=== PATIENT | male | born 1975 | race Caucasian/White ===

== ENCOUNTER 2016-04-16 13:41 | Inpatient (IN) ==
--- NOTE | 2016-04-16 15:03 | Diag Imaging Result Document ---
PROCEDURE NAME: NECK AP AND/OR LAT SOFT TISSUE - 04/16/2016 SOFT TISSUE NECK, 2 VIEWS: FINDINGS: Compared to 06/15/2015. No precervical soft tissue swelling. No subluxation. No metallic or other foreign body identified. IMPRESSION: No foreign body is seen.
[2016-04-16] MEDS ORDERED: GLUCAGON SUBQ ONE (17:15)
[2016-04-16] MEDS ORDERED: GLUCAGON ONE (17:16)
[2016-04-16] MEDS ORDERED: STERILE WATER INJ. ONE (17:16)
--- NOTE | 2016-04-16 17:30 | PROVIDER DOCUMENTATION ---
HPI-Abdominal Pain/GI Problem - General Chief Complaint: Foreign Body/Throat Stated Complaint: "FOOD STUCK IN THROAT" Time Seen by Provider: 04/16/16 15:52 Allergies/Adverse Reactions: Patient Allergies Allergy/AdvReac Type Severity Reaction Status Date / Time morphine Allergy ANAPHYLAXIS Verified 04/16/16 13:48 propoxyphene napsylate * Allergy SWELLING Verified 04/16/16 13:48 [From Darvocet-N] tramadol HCl * [From Ultram] Allergy SWELLING Verified 04/16/16 13:48 IV pain meds Allergy Unknown Uncoded 04/16/16 13:48 Home Medications: Home Medication List Medication Instructions Recorded Confirmed Last Taken Type Flecainide Acetate 50 mg PO BID 08/02/15 03/01/16 03/01/16 History Gabapentin [Neurontin] 100 mg PO QHS 11/23/15 03/01/16 1 Day Ago History Metoprolol [Lopressor] 50 mg PO QAM 11/23/15 03/01/16 03/01/16 History Eszopiclone [Lunesta] 1 mg PO HS 03/01/16 03/01/16 1 Day Ago History Lorazepam [Ativan] 1 mg PO QHS 03/01/16 03/01/16 02/29/16 History Omeprazole/Sodium Bicarbonate 1 each PO DAILY #30 packet 03/01/16 Unknown Rx [Zegerid 40 mg Packet] Paroxetine [Paxil] 0 mg PO DAILY 03/01/16 03/01/16 03/01/16 History Prednisone 10 mg PO QAM 03/01/16 03/01/16 03/01/16 History Rivaroxaban [Xarelto] 10 mg PO DAILY 03/01/16 03/01/16 03/01/16 History Sucralfate [Carafate] 1 gm PO 4XDAY #120 tablet 03/01/16 Unknown Rx - History of Present Illness-ABD Nature of Presenting Problems: 40 y/o M presented to the ER complaining of a piece of meat stuck in his throat. He tried to induce vomiting and drink liquid to help swallowing the particle but it did not work. He stated that he has a history of hodgkin lymphoma s/p radiotherapy which had caused his esophagus to be narrowed. He has multiple episodes of such a complaint and is following on regular basis with his GI specialist "DR. HERNANDEZ" for prn Endoscopy. Onset/Duration: reports: abrupt Timing: reports: still present Activities at Onset: reports: none Modifying Factors: improves with: nothing Last BM: this morning Dark Stools Present?: reports: none noticed Rectal Bleeding: reports: none Emesis Description: reports: none Bruising or Bleeding Gums?: No Similar Symptoms Previously?: Yes Recently seen or treated by another doctor?: Yes Review of Systems - Adult - REVIEW OF SYSTEMS - ADULT Constitutional: reports: no symptoms reported Eyes: reports: no symptoms reported Ears, Nose, Mouth & Throat: reports: other (unable to pass solid food.) Respiratory: reports: no symptoms reported Gastrointestinal: reports: other Genitourinary: reports: no symptoms reported Musculoskeletal: reports: no symptoms reported Integumentary: reports: no symptoms reported Neurological: reports: no symptoms reported Psychiatric: reports: no symptoms reported Endocrine: reports: no symptoms reported Hematologic/Lymphatic: reports: no symptoms reported Past History - Adult - PAST MEDICAL HISTORY-ADULT Review of Records: reports: Nursing Assessment Review, Medications Reviewed Major Childhood Illnesses: reports: denies history Cardiovascular: reports: denies history, HTN Respiratory: reports: COPD, cancer, other (cancer in chest) Gastrointestinal: reports: GERD, other (esophageal stricture) Obstetrical/Gynecological: reports: denies history Genitourinary: reports: kidney stones Musculoskeletal: reports: denies history Neurological: reports: denies history Endocrine/Immune: reports: denies history Other Conditions: reports: other cancer (Hidgkins Lymphoma, currently in remission) - PRIOR SURGERIES/PROCEDURES Surgical/Procedure History: reports: other (biopsy) - IMMUNIZATION STATUS Childhood Immunizations: See Nurse Assessment Flu Vaccine: See Nurse Assessment - FAMILY HISTORY Family History: reviewed, not pertinent Physical Exam-General - PHYSICAL EXAM-ADULT Initial Vital Signs Reviewed: Yes - CONSTITUTIONAL General Appearance: appears well - EYES Eyes: PERRL/EOMI - HEAD, EARS, NOSE, MOUTH & THROAT HENMT: normocephalic/atraumatic - NECK Neck: non-tender, supple. negative: lymphadenopathy, trachial deviation - RESPIRATORY Respiratory: lungs clear, normal breath sounds - CARDIOVASCULAR Cardiovascular: normal peripheral pulses - GASTROINTESTINAL (ABDOMEN) Abdominal Exam: soft - MUSCULOSKELETAL Back Exam: normal inspection Extremity: normal range of motion Progress - PLAN OF CARE/RESULTS Progress/Plan/Lab Results: Vital Signs - 24 hr 04/16/16 13:44 Temperature 97.3 F L Pulse Rate 112 H Respiratory 18 Rate Blood Pressure 136/80 O2 Sat by Pulse 98 Oximetry - XRAY 1 XRAY Study: other (NECK) XRAY Interpretation: no F.B noticed on Xray Departure - Departure Time of Disposition Order: 17:31 DIAGNOSIS: Esophageal atresia, stenosis, or tracheoesophageal fistula, congenital, Foreign body alimentary tract Disposition: ADMITTED INPATIENT 09 Certified Medical Emergency: Emergent Condition: Good Referrals: Sera Iqbal MD [Primary Care Provider] -
[2016-04-16] MEDS ORDERED: SODIUM CHLORIDE 0.9% INJ SCH (18:15)
[2016-04-16] MEDS ORDERED: PROTONIX IV SCH (18:15)
[2016-04-16] MEDS ORDERED: ZOFRAN IV PRN (18:16)
[2016-04-16] MEDS ORDERED: TYLENOL PR PRN (18:16)
[2016-04-16 18:18] LABS: MANUAL DIFF NEEDED? NO
[2016-04-16 18:24] LABS: BASO% 0.5 % (0.0-0.8); EOS# 0.13 X1000 (0.0-0.7); EOS% 2.2 % (0.0-10.0); HEMATOCRIT 41.2 % (42.0-52.0); HEMOGLOBIN 13.9 g/dL (14.0-18.0); IMM GRAN# 0.03 X1000 (0.0-0.04); IMM GRAN% 0.5 % (0.0-0.5); LYMPH% 22.3 % (20.5-51.1); MCH 28.4 PG (27-31); MCHC 33.7 g/dL (33-37); MCV 84.3 FL (81-99); MONO# 0.54 X1000 (0.11-0.59); MONO% 9.3 % (1.7-9.3); MPV 10.2 FL (7.4-10.4); NEUT% 65.2 % (42.2-75.2); PLT 289 X1000 (130-400); RBC 4.89 XMIL (4.7-6.1)
[2016-04-16] MEDS ORDERED: DEMEROL IV ONE ×2 (18:28→18:49)
[2016-04-16] MEDS ORDERED: DEMEROL ONE (18:48)
[2016-04-16] MEDS ORDERED: G.I. COCKTAIL PO ONE (18:49)
[2016-04-16] MEDS: NS 1,000 ML IV SCH (18:51)
[2016-04-16 18:58] LABS: AGAP 10; ALBUMIN 4.4 g/dL (3.5-5.0); ALKALINE PHOSPHATASE 65 U/L (32-122); BUN 9 mg/dL (8-22); CALCIUM 9.1 mg/dL (8.8-10.2); CHLORIDE 98 mmol/L (98-107); COSMO 276; GOT 16 U/L (10-34); GPT 26 U/L (10-44); SODIUM 137 mmol/L (136-145); TCO2 29 mmol/L (25-35); TOTAL BILIRUBIN 0.41 mg/dL (0.20-1.00); TOTAL PROTEIN 7.3 g/dL (6.3-8.3)
[2016-04-16 19:01] LABS: INR 1.02; PROTIME 10.4 Seconds (9.2-11.7); PTT 23.6 Seconds (22.0-36.0)
[2016-04-16] MEDS: DUONEB (A & A) INH SCH (22:00)
[2016-04-16] MEDS ORDERED: DEMEROL IV PRN (22:19)
[2016-04-17] MEDS: NS 1,000 ML IV SCH (03:16)
--- NOTE | 2016-04-17 03:34 | HISTORY AND PHYSICAL ---
ONCOLOGIST: Sera Iqbal MD FELL CUTTER: Edie Sotomayor MD CHIEF COMPLAINT: I was eating a corn dog and it got stuck in my esophagus again. HISTORY OF PRESENT ILLNESS: Mr. Greenberg is a 40-year-old male with a history of Hodgkin's lymphoma x2, piz-yexmw-jfeh lung carcinoma, paroxysmal atrial fibrillation, food impaction x2 and severe esophageal stricture, who presented to the ER today with a chief complaint of food being stuck in his esophagus. The patient has been admitted twice for the same issue. The first time was in January,, at which time the patient was noted to have a food impaction and had an esophagogastroduodenoscopy, at which time the foreign body was removed. During that endoscopic procedure it was discovered that the patient had Demarco's esophagus, as well as gastritis and duodenitis. The patient's second episode of food impaction was in February,. The patient is followed by Dr. Sera Iqbal for a uga-rflmk-tucx lung carcinoma. The patient states that he has been exposed to radiation several times for treatment of his Hodgkin lymphoma, which is in remission. At this time the patient denies having any chest pain, shortness of breath, headache, or dizziness. He also denies having any abdominal pain or diarrhea. The patient states that he cannot even swallow water. It keeps coming back up. PAST MEDICAL HISTORY: 1. Hodgkin lymphoma x2 in remission. 2. Soz-bzvyo-wblq lung cancer. 3. Chronic obstructive pulmonary disease. 4. Morbid obesity. 5. Hypertension. 6. Paroxysmal atrial fibrillation. 7. Esophageal stricture. 8. Food impaction with foreign body removal x2. 9. Gastritis. 10. Duodenitis. 11. Demarco's esophagus. 12. Antral ulcer. 13. Gastric polyps. PAST SURGICAL HISTORY: 1. Multiple lung biopsies. 2. Lymph node biopsy. 3. Lower back surgery. 4. Port placement. 5. Esophagogastroduodenoscopy times 2. FAMILY HISTORY: The patient's father of a myocardial infarction at the age of 54. The patient's mother has hypertension. SOCIAL HISTORY: The patient is and has one child. He denies any tobacco, alcohol, or illicit drug use. ALLERGIES: 1. IV pain medication. 2. Morphine. 3. Tramadol. 4. Darvocet. HOME MEDICATIONS: 1. Carafate 1 gram p.o. 4 times a day. 2. Xarelto 10 mg p.o. at daily. 3. Prednisone 10 mg p.o. every morning number. 4. Paxil 20 mg p.o. daily. 5. Metoprolol 50 mg p.o. every morning. 6. Ativan 1 mg p.o. at bedtime. 7. Neurontin 100 mg p.o. at bedtime. 8. Flecainide 50 mg p.o. twice a day. 9. Lunesta 1 mg p.o. at bedtime. REVIEW OF SYSTEMS: A 10 point review of systems was obtained and found to be negative, with the exception of the history of present illness. PHYSICAL EXAMINATION: VITAL SIGNS: Temperature 97.3 degrees, blood pressure 136/80, heart rate 112, respirations 18, O2 saturations 98% on room air. GENERAL: This is a morbidly obese male, lying on the stretcher, in no acute distress. HEAD: Normocephalic, atraumatic. HEART: S1, S2 normal. Tachycardic. LUNGS: Clear to auscultation bilaterally. No wheezes, no rales. No rhonchi. ABDOMEN: Positive bowel sounds. Soft, obese, nontender, nondistended. EXTREMITIES: No edema. No cyanosis. No calf tenderness. NEUROLOGIC: The patient is alert and oriented x3. No focal neurologic deficits noted. LABS: Pending. Soft tissue neck x-ray shows no foreign body. ASSESSMENT AND PLAN: 1. Food impaction with severe esophageal stricture. The case has been discussed with Dr. Edie Sotomayor, who will take the patient for endoscopy tomorrow morning. The patient has been made NPO and will be started on IV Protonix. Will also order p.r.n. Zofran. 2. Paroxysmal atrial fibrillation. The patient is in normal sinus rhythm. His oral medications are on hold. He will be placed on telemetry. His Xarelto is also on hold in anticipation of an esophagogastroduodenoscopy tomorrow. 3. Chronic obstructive pulmonary disease. Stable. Will order p.r.n. bronchodilator therapy. 4. Morbid obesity. Aware. 5. Nlt-crlbj-fzvj lung carcinoma. The patient is followed by Dr. Iqbal as outpatient. 6. Hypertension. Controlled. 7. History of Hodgkin lymphoma times 2 in remission. Aware.
[2016-04-17] MEDS: DUONEB (A & A) INH SCH ×2 (03:56→09:51)
[2016-04-17 05:22] LABS: MANUAL DIFF NEEDED? NO
[2016-04-17 05:27] LABS: BASO% 0.2 % (0.0-0.8); EOS# 0.08 X1000 (0.0-0.7); EOS% 1.4 % (0.0-10.0); HEMATOCRIT 38.1 % (42.0-52.0); HEMOGLOBIN 12.6 g/dL (14.0-18.0); IMM GRAN# 0.02 X1000 (0.0-0.04); IMM GRAN% 0.3 % (0.0-0.5); LYMPH# 1.48 X1000 (1.2-3.4); LYMPH% 25.9 % (20.5-51.1); MCH 28.3 PG (27-31); MCHC 33.1 g/dL (33-37); MCV 85.4 FL (81-99); MONO# 0.56 X1000 (0.11-0.59); MONO% 9.8 % (1.7-9.3); MPV 9.9 FL (7.4-10.4); NEUT% 62.4 % (42.2-75.2); PLT 220 X1000 (130-400); RBC 4.46 XMIL (4.7-6.1)
[2016-04-17 05:55] LABS: AGAP 12; BUN 9 mg/dL (8-22); CALCIUM 8.5 mg/dL (8.8-10.2); CHLORIDE 101 mmol/L (98-107); COSMO 276; POTASSIUM 4.3 mmol/L (3.5-5.1); SODIUM 139 mmol/L (136-145); TCO2 26 mmol/L (25-35)
[2016-04-17] MEDS ORDERED: MYLICON DROPS (DOSE) MISC ONE (08:01)
[2016-04-17] MEDS ORDERED: CARAFATE LIQUID PO SCH (08:45)
[2016-04-17] MEDS ORDERED: NS 1,000 ML ONE (08:49)
[2016-04-17] MEDS ORDERED: DIPRIVAN 1% ONE (09:37)
[2016-04-17] MEDS ORDERED: ROBINUL ONE (09:44)
[2016-04-17] MEDS ORDERED: LR 2,000 ML ONE (09:44)
[2016-04-17] MEDS ORDERED: ANESTHESIA PB SET 88 IN 5742 ONE (09:44)
[2016-04-17] MEDS ORDERED: XYLOCAINE-MPF 2% ONE (09:44)
[2016-04-17] MEDS ORDERED: QUELICIN (DOSE) ONE (09:44)
[2016-04-17] MEDS ORDERED: DECADRON ONE (09:44)
[2016-04-17] MEDS ORDERED: ZOFRAN ONE (09:44)
[2016-04-17 09:57] VITALS: BP 128/78
--- NOTE | 2016-04-18 07:21 | DISCHARGE SUMMARY ---
ADMISSION DATE: 04/16/2016 DISCHARGE DATE: 04/17/2016 CONSULTATIONS: Dr. Edie Sotomayor. PERTINENT PROCEDURES: EGD with foreign body removal of a corn dog. DISCHARGE DIAGNOSES: 1. Retained foreign body in the esophagus which was a corn dog. 2. Gastritis. 3. Duodenitis and stricture at 32 cm. EGD was performed by Dr. Sotomayor. Patient is appropriate for discharge as per her instructions. 4. Paroxysmal atrial fibrillation. Continue patient's home flecainide, as well as his home Xarelto. 5. Chronic obstructive pulmonary disease without exacerbation. 6. Morbid obesity. Aware. 7. Frg-dfmty-reka lung carcinoma. The patient has an appointment with Dr. Iqbal today. 8. Hypertension controlled. 9. Hodgkin lymphoma x2 in remission, history aware. HOSPITAL COURSE: Briefly, Mr. Greenberg is a 40-year-old male with a history of Hodgkin's lymphoma x2, frh-mxlqb-bmkl carcinoma followed by Dr. Iqbal. Paroxysmal atrial fibrillation and food impaction x2 and severe esophageal stricture. He presented to the ED with chief complaint of food being stuck in his esophagus. The patient has been admitted twice for the same issue. The first time was in January, and the 2nd episode was in February,. Patient is followed by Dr. Sera Iqbal for nonsmall cell lung carcinoma. The patient states that he has been exposed to radiation several times for treatment of his Hodgkin's lymphoma for which he is in remission. The patient could not even tolerate swallowing water it would come right back. He was admitted for food impaction with severe esophageal stricture. Dr. Sotomayor did a foreign body removal this a.m., she has cleared him for discharge as the patient does have an appointment with Dr. Iqbal in reference to his lung cancer. The family and the patient are anxious to not miss the appointment. He is appropriate for discharge today. He will continue on his home medication. PHYSICAL EXAMINATION: Vital signs: Temperature is 97.9 degrees, heart rate 90, respirations 18, blood pressure 99/58, O2 is 97% on room air. DISCHARGE MEDICATIONS: 1. Flecainide 50 mg p.o. b.i.d. 2. Lopressor 50 mg p.o. q.a.m. 3. Neurontin 100 mg p.o. at bedtime. 4. Ativan 1 mg p.o. at bedtime. 5. Lunesta 1 mg p.o. at bedtime. 6. 40 mg p.o. daily. 7. Carafate 1 g p.o. 4 times a day. Let it crush and mix in applesauce. DISCHARGE DIET: As per Dr. Sotomayor. FOLLOW UP: The patient is being discharged home with family. He will need to follow up with Dr. Sotomayor as indicated. He will keep his appointment with Dr. Iqbal today, as well as follow up with his primary care physician. Patient can return to the ED for any worsening of symptoms. DISCHARGE TIME: 30 minutes. Dictated by CRISTOBAL Barreto for Edi Witt MD
--- NOTE | 2016-04-19 04:10 | OPERATIVE NOTE ---
PROCEDURE DATE: 04/17/2016 REFERRING PHYSICIAN: Diane Wilcox MD PRIMARY CARE PHYSICIAN: Sera Iqbal MD INDICATION FOR PROCEDURE: 1. Recurrent food impaction. 2. Known esophageal stricture. 3. Iron deficiency anemia. PROCEDURE PERFORMED: Esophagogastroduodenoscopy with foreign body removal. CONSENT: Informed consent was obtained from the patient prior to the procedure. The risks, benefits, and alternatives were discussed. MEDICATION: The patient received general anesthesia for airway protection. PERFORMING PHYSICIAN: Edie Sotomayor MD ASSISTANTS: 1. ST Fredy 2. Luis Anderson RN 3. Eva Bean CRNA 4. Zion Mensah MD (anesthesia) COMPLICATIONS: There were no complications. ESTIMATED BLOOD LOSS: None. SPECIMENS REMOVED: None. FINDINGS: 1. After sedation was achieved, the upper endoscope was inserted. The hypopharynx appeared grossly normal. The tubular esophagus was normal to 25 cm. At 25 cm, there were 4 large food boluses removed. The stricture seen on previous endoscopy was measured at 32 cm from the incisors. Distal to the obstruction, there was grade B erosive esophagitis. There was a single tongue of salmon-colored mucosa that spanned from 37-45 cm from the incisors. The GE junction measured at 40 cm from the incisors. In the gastric lumen, there was erosive gastritis which has had interval improvement. There were no large gastric ulcers. The previously seen gastric ulcer showed interval improvement. 2. There were gastric polyps in the fundus. There were no other gastric findings. The pylorus and duodenum appeared normal, consistent with interval improvement. After the exam was complete, the lumen was decompressed and the scope was removed without incident. IMPRESSION: 1. Foreign body in the tubular esophagus. 2. Esophageal stricture. 3. Grade B erosive esophagitis. 4. Bynum-colored tongue of erythema suggestive of possible Demarco's. 5. Erosive gastritis. 6. Gastric polyps in the fundus. 7. Normal pylorus. 8. Duodenitis. RECOMMENDATION: 1. Continue PPI therapy. 2. Add Carafate 1 g p.o. 4 times a day for 12 weeks. 3. We will plan to perform an EGD with dilation in the near future. 4. We will screen with a colonoscopy when he returns for his repeat EGD with dilation.
== END 2016-04-17 10:30 | disposition home or self-care (01) | DRG 394 ==
LOC: ED 13:41 → EDIPHOLD 18:53 → SURHOLD 04-17 08:46
PROVIDERS: ATTEND Emergency Medicine
PROC: 0DC58ZZ Extirpation of Matter from Esophagus, Via Natural or Artificial Opening Endoscopic (ICD-10-PCS; principal; 2016-04-17 07:30)
DX: T18.128A Food in esophagus causing other injury, initial encounter (principal); Z68.41 Body mass index [BMI] 40.0-44.9, adult; I27.2 Other secondary pulmonary hypertension; C34.90 Malignant neoplasm of unspecified part of unspecified bronchus or lung; E66.01 Morbid (severe) obesity due to excess calories; I48.0 Paroxysmal atrial fibrillation; K22.2 Esophageal obstruction; J44.9 Chronic obstructive pulmonary disease, unspecified; I10 Essential (primary) hypertension; K29.80 Duodenitis without bleeding; K21.0 Gastro-esophageal reflux disease with esophagitis; D50.9 Iron deficiency anemia, unspecified; K22.70 Barrett's esophagus without dysplasia; K29.60 Other gastritis without bleeding; K31.7 Polyp of stomach and duodenum; G47.33 Obstructive sleep apnea (adult) (pediatric); M19.90 Unspecified osteoarthritis, unspecified site; F41.9 Anxiety disorder, unspecified; Z79.899 Other long term (current) drug therapy; Z79.01 Long term (current) use of anticoagulants; Z79.52 Long term (current) use of systemic steroids; Z92.3 Personal history of irradiation; Z85.71 Personal history of Hodgkin lymphoma; Z82.49 Family history of ischemic heart disease and other diseases of the circulatory system
CPT/HCPCS: 70360; 80048; 80053; 85025; 85610; 85730; 94640; 96372; 96374; 96375; C9113; J0330; J1100; J1610; J2175; J2405; J7030; J7120; S0164

== ENCOUNTER 2016-04-21 08:14 | Day surgery (SDC) ==
[2016-04-21] MEDS ORDERED: LR 1,000 ML ONE ×2 (08:30→12:24)
[2016-04-21] MEDS ORDERED: LR 0 ML ONE (08:46)
[2016-04-21] MEDS ORDERED: EPINEPHRINE ONE (10:12)
[2016-04-21] MEDS ORDERED: SODIUM CHLORIDE 0.9% 20 ML ONE (10:13)
[2016-04-21] MEDS ORDERED: XYLOCAINE 2% ONE (10:14)
[2016-04-21] MEDS ORDERED: XYLOCAINE 2% VISCOUS ONE (10:15)
[2016-04-21] MEDS ORDERED: DIPRIVAN 1% ONE (13:09)
--- NOTE | 2016-04-21 13:48 | Diag Imaging Result Document ---
PROCEDURE NAME: CHEST-PORTABLE - 04/21/2016 PORTABLE CHEST X-RAY: COMPARISON: 03/01/2016. FINDINGS: Stable left chest port in good position. Heart size is top normal. Grossly stable right perihilar infiltrate. The lung volumes are somewhat low. No pneumothorax or significant effusion. IMPRESSION: No complication or significant change from prior.
[2016-04-21 14:42] VITALS: BP 132/84
--- NOTE | 2016-04-21 15:04 | OPERATIVE NOTE ---
PROCEDURE DATE: 04/21/2016 REFERRING PHYSICIAN: Sera Iqbal MD PROCEDURE: Bronchoscopy. INDICATION: Old lung cancer lymphoma, PET scan active in subcarinal area. Consent obtained. DESCRIPTION OF PROCEDURE: Conscious sedation administered via anesthesia, they intubated him as we did the biopsies and the aspiration needles. The patient was disconnected from the ventilator to minimize chances of pneumothorax. Fluoroscopy scanning after the procedure showed no pneumothorax, however, again the fluoroscopy scanning showed no pneumothorax after procedure. However, an official chest x-ray is also requested. So consent obtained. Fluoroscopy used for sampling guidance. All major segments visualized. There was a little bulging in the posterior carinal area mainly to the right side and there was minimal extrinsic narrowing of the right middle lobe, area of about 10%-15% and same in the left upper lobe area. We have taken brushings from the right middle lobe and left upper lobe and then we did transbronchial biopsies from right middle lobe and left upper lobe with fluoroscopy scanning and again ventilator was disconnected on each time we took a sample. Then we passed the long needle to the subcarinal area and multiple areas under suction to the suspicious subcarinal node from the middle and from the right side and sample sent for cytology, and microbiology and pathology. No complications noted. Chest x-ray is requested. The patient tolerated the procedure well. IMPRESSION: 1. Old lung cancer. 2. Old lymphoma. 3. Subcarinal lymph node. PET positive. 4. 10%-20% narrowing extrinsic on right middle lobe and left upper lobe. PLAN: Awaiting cytology and pathology results.
[2016-04-21] MEDS ORDERED: XYLOCAINE-MPF 2% ONE (16:26)
[2016-04-21] MEDS ORDERED: LTA KIT ONE (16:26)
== END 2016-04-21 14:20 | disposition home or self-care (01) ==
LOC: ENDO 08:14
PROVIDERS: ATTEND Internal Medicine Pulmonary Disease
DX: C34.91 Malignant neoplasm of unspecified part of right bronchus or lung (principal); J98.4 Other disorders of lung; I48.91 Unspecified atrial fibrillation; G47.33 Obstructive sleep apnea (adult) (pediatric); G47.10 Hypersomnia, unspecified; R91.8 Other nonspecific abnormal finding of lung field; Z85.71 Personal history of Hodgkin lymphoma; J44.9 Chronic obstructive pulmonary disease, unspecified; K21.9 Gastro-esophageal reflux disease without esophagitis; M19.90 Unspecified osteoarthritis, unspecified site; I10 Essential (primary) hypertension; Z92.21 Personal history of antineoplastic chemotherapy; Z92.3 Personal history of irradiation; Z79.899 Other long term (current) drug therapy
CPT/HCPCS: 71010; 76000; 87015; 87070; 87102; 87116; 87147; 87205; 87206; 88112; 88173; 88305; J0171; J7120

== ENCOUNTER 2016-06-13 15:57 | Inpatient (IN) ==
[2016-06-13] MEDS ORDERED: NS 1,000 ML IV ONE (16:14)
[2016-06-13 16:39] LABS: MANUAL DIFF NEEDED? NO
[2016-06-13 16:42] LABS: BASO% 0.6 % (0.0-0.8); EOS# 0.14 X1000 (0.0-0.7); EOS% 2.6 % (0.0-10.0); HEMATOCRIT 38.7 % (42.0-52.0); IMM GRAN# 0.02 X1000 (0.0-0.04); IMM GRAN% 0.4 % (0.0-0.5); LYMPH% 23.9 % (20.5-51.1); MCH 28.3 PG (27-31); MCHC 33.6 g/dL (33-37); MCV 84.1 FL (81-99); MONO# 0.58 X1000 (0.11-0.59); MONO% 10.7 % (1.7-9.3); MPV 10.2 FL (7.4-10.4); NEUT% 61.8 % (42.2-75.2); PLT 233 X1000 (130-400)
[2016-06-13 17:01] LABS: AGAP 12; ALBUMIN 4.3 g/dL (3.5-5.0); ALKALINE PHOSPHATASE 74 U/L (32-122); BUN 10 mg/dL (8-22); CALCIUM 9.3 mg/dL (8.8-10.2); CHLORIDE 99 mmol/L (98-107); COSMO 273; GOT 16 U/L (10-34); GPT 19 U/L (10-44); MAGNESIUM 1.9 mg/dL (1.5-2.7); POTASSIUM 3.8 mmol/L (3.5-5.1); SODIUM 137 mmol/L (136-145); TCO2 26 mmol/L (25-35); TOTAL PROTEIN 7.8 g/dL (6.3-8.3)
--- NOTE | 2016-06-13 17:41 | Diag Imaging Result Document ---
PROCEDURE NAME: CHEST-PORTABLE - 06/13/2016 CHEST, SINGLE VIEW: COMPARISON: 04/21/2016. FINDINGS: There is a left central venous catheter, which is directed laterally, consistent with retraction or possibly it has entered the azygous vein. There is a right perihilar infiltrate, similar in appearance to the prior study. Left lung is clear. IMPRESSION: 1. Stable right perihilar infiltrate. 2. Interval retraction of the left central venous catheter by approximately 1 cm versus entering the azygous vein.
[2016-06-13] MEDS ORDERED: SOLU-MEDROL IV ONE (17:59)
[2016-06-13] MEDS ORDERED: NORCO-10 PO ONE (17:59)
--- NOTE | 2016-06-13 18:02 | PROVIDER DOCUMENTATION ---
This chart was entered by Chase Resendiz Scribe, acting as scribe for Maryjane Nichols MD. HPI-General Adult - General Chief Complaint: Return/Recheck Stated Complaint: RETURN/RECHECK Time Seen by Provider: 06/13/16 16:10 Source: patient Allergies/Adverse Reactions: Patient Allergies Allergy/AdvReac Type Severity Reaction Status Date / Time morphine Allergy ANAPHYLAXIS Verified 06/09/16 10:29 propoxyphene napsylate * Allergy SWELLING Verified 06/09/16 10:29 [From Darvocet-N] tramadol HCl * [From Ultram] Allergy SWELLING Verified 06/09/16 10:29 IV pain meds Allergy Unknown Uncoded 06/09/16 10:29 Home Medications: Home Medication List Medication Instructions Recorded Confirmed Last Taken Type Flecainide Acetate 50 mg PO BID 08/02/15 06/09/16 06/12/16 History Gabapentin [Neurontin] 100 mg PO QHS 11/23/15 06/09/16 05/14/16 History Metoprolol [Lopressor] 50 mg PO QAM 11/23/15 06/09/16 06/12/16 History Eszopiclone [Lunesta] 1 mg PO HS 03/01/16 06/09/16 06/12/16 History Lorazepam [Ativan] 1 mg PO QHS 03/01/16 06/09/16 06/12/16 History Paroxetine [Paxil] 40 mg PO DAILY 03/01/16 06/09/16 06/12/16 History Sucralfate [Carafate] 1 gm PO 4XDAY #120 tablet 03/01/16 06/09/16 06/12/16 Rx Melatonin 5 mg PO QHS 05/15/16 06/09/16 06/12/16 History Omeprazole [Prilosec] 40 mg PO DAILY #30 capsule. 05/15/16 06/09/16 06/12/16 Rx Hydrocodone/Acetaminophen [[place] 7.5 mg PO 06/13/16 06/12/16 History 7.5-325 Tablet] - History of Present Illness -Gen Adult Nature of Presenting Problems: patient is a 41 y/o M that presents to the for recheck after being seen yesterday for pain in the Er. Patient is seeing Dr. Sera Iqbal for Hodgkins Lymphoma. Patient dropped of CT scan that was done in the ER yesterday. called patient and wanted him to go to ER because of possible airway compromise. patient reports pain and mild shortness of breath but no other symptoms. Location of Pain/Injury: reports: chest Quality of Pain: reports: sharp Severity: reports: moderate Onset/Duration: reports: unsure Timing: reports: still present, constant Context/Activities at Onset: reports: none Modifying Factors: improves with: nothing Associated Symptoms: reports: chest pain, EENT symptoms, shortness of breath. denies: cough, diarrhea, fever/chills, genitourinary problems, nausea, vomiting Similar Symptoms Previously?: Yes Recently seen or treated by another doctor?: Yes Review of Systems - Adult - REVIEW OF SYSTEMS - ADULT Constitutional: denies: chills, fever Eyes: denies: decreased vision, blurred vision, double vision Ears, Nose, Mouth & Throat: denies: ear pain, epistaxis, sinus problem, throat pain, throat swelling Cardiovascular: reports: chest pain. denies: palpitations, syncope Respiratory: reports: shortness of breath. denies: cough, wheezing Gastrointestinal: denies: abdominal pain, diarrhea, nausea, vomiting Genitourinary: reports: no symptoms reported Musculoskeletal: reports: muscle aches. denies: joint pain, joint swelling Integumentary: denies: itching, rash Neurological: reports: no symptoms reported Psychiatric: reports: no symptoms reported Endocrine: reports: no symptoms reported Hematologic/Lymphatic: reports: no symptoms reported Allergic/Immunologic: reports: no symptoms reported All Other Systems: Reviewed and Negative Past History - Adult - PAST MEDICAL HISTORY-ADULT Review of Records: reports: Old Records Reviewed, Nursing Assessment Review, Medications Reviewed Cardiovascular: reports: HTN Respiratory: reports: COPD, cancer Gastrointestinal: reports: GERD Genitourinary: reports: kidney stones Endocrine/Immune: reports: Lymphoma (hodgkins) - PRIOR SURGERIES/PROCEDURES Surgical/Procedure History: reports: back/neck, other (chest, biospy) - IMMUNIZATION STATUS Childhood Immunizations: See Nurse Assessment Flu Vaccine: See Nurse Assessment - FAMILY HISTORY Family History: reviewed, not pertinent - SOCIAL HISTORY Smoking: non-smoker Living Situation: family Physical Exam-General - PHYSICAL EXAM-ADULT Initial Vital Signs Reviewed: Yes - CONSTITUTIONAL General Appearance: alert, mild distress, anxious, other (ill appearing) - EYES Eyes: PERRL/EOMI, pink conjunctivae - HEAD, EARS, NOSE, MOUTH & THROAT HENMT: normocephalic/atraumatic, moist mucous membranes, normal ENT inspection, pharynx normal - NECK Neck: full range of motion, supple - RESPIRATORY Respiratory: lungs clear, normal breath sounds, no respiratory distress, no accessory muscle use - CARDIOVASCULAR Cardiovascular: no gallop, no murmur, tachycardia - GASTROINTESTINAL (ABDOMEN) Abdominal Exam: normal bowel sounds, non tender, soft, no organomegaly, no pulsatile mass - MUSCULOSKELETAL Extremity: normal range of motion, normal inspection, no pedal edema - SKIN Integumentary: normal color, warm/dry - NEUROLOGIC Neurologic: grossly normal, no motor/sensory deficits - PSYCHIATRIC Psych/Mental Status: oriented x 3, anxious Progress - PLAN OF CARE/RESULTS Progress/Plan/Lab Results: Vital Signs - 8 hr 06/13/16 16:00 Temperature 98 F Pulse Rate 105 H Respiratory Rate 19 Blood Pressure 121/72 O2 Sat by Pulse Oximetry 97 Laboratory Results - last 24 hr 06/13/16 16:25 WBC 5.43 RBC 4.60 L Hgb 13.0 L Hct 38.7 L MCV 84.1 MCH 28.3 MCHC 33.6 RDW Std Deviation 13.7 Plt Count 233 MPV 10.2 Immature Gran % (Auto) 0.4 Neut % (Auto) 61.8 Lymph % (Auto) 23.9 Warrick % (Auto) 10.7 H Eos % (Auto) 2.6 Baso % (Auto) 0.6 Immature Gran # (Auto) 0.02 Neut # (Auto) 3.36 Lymph # (Auto) 1.30 Warrick # (Auto) 0.58 Eos # (Auto) 0.14 Baso # (Auto) 0.03 Orders Category Date Time Status Cardiac Monitoring DIRECTED Care 06/13/16 16:14 Active Oxygen Therapy- ED Nursing DIRECTED Care 06/13/16 16:14 Active Saline Loc NOW Care 06/13/16 16:14 Active CHEST-PORTABLE [RAD] Stat Exams 06/13/16 16:14 Ordered BLOOD CULTURE [BLDCUL] Stat Lab 06/13/16 16:14 Ordered CBC WITH ELECTRONIC DIFF [HEME] Stat Lab 06/13/16 16:25 Completed COMPREHENSIVE METABOLIC PANEL [CHEM] Stat Lab 06/13/16 16:25 Received MAGNESIUM [CHEM] Stat Lab 06/13/16 16:25 Received 0.9% Sodium Chloride Inj [Ns] 1,000 ml Med 06/13/16 16:14 Active IV 999 mls/hr Chest Ct scan that was done yesterday revealed the following 1) worsening mediastinal and R hilar lymphadenopathy, which is producing mass effect upon the pulmonary artery and SVC and narrowing of R middle lobe and lower lobe bronchus 2) increased attenuation throughout the medial R lung, compatible with tumor infiltration or pneumonia 3) R Effusion 4) New hypodensity with the medial segment of the R lobeof liver. Vital Signs Temp Pulse Resp BP Pulse Ox 06/13/16 16:00 98 F 105 H 19 121/72 97 morphine Allergy (Verified 06/09/16 10:29) ANAPHYLAXIS propoxyphene napsylate * [From Darvocet-N] Allergy (Verified 06/09/16 10:29) SWELLING tramadol HCl * [From Ultram] Allergy (Verified 06/09/16 10:29) SWELLING IV pain meds Allergy (Uncoded 06/09/16 10:29) Unknown States oxygen levels drop and stops breathing Flecainide Acetate 50 mg PO BID 08/02/15 Gabapentin [Neurontin] 100 mg PO QHS 11/23/15 Metoprolol [Lopressor] 50 mg PO QAM 11/23/15 Eszopiclone [Lunesta] 1 mg PO HS 03/01/16 Lorazepam [Ativan] 1 mg PO QHS 03/01/16 Paroxetine [Paxil] 40 mg PO DAILY 03/01/16 Sucralfate [Carafate] 1 gm PO 4XDAY #120 tablet 03/01/16 Melatonin 5 mg PO QHS 05/15/16 Omeprazole [Prilosec] 40 mg PO DAILY #30 capsule.dr 05/15/16 Hydrocodone/Acetaminophen [[place] 7.5-325 Tablet] 7.5 mg PO 06/13/16 Laboratory 06/13/16 06/13/16 16:25 16:25 WBC 5.43 RBC 4.60 L Hgb 13.0 L Hct 38.7 L MCV 84.1 MCH 28.3 MCHC 33.6 RDW Std Deviation 13.7 Plt Count 233 MPV 10.2 Immature Gran % (Auto) 0.4 Neut % (Auto) 61.8 Lymph % (Auto) 23.9 Warrick % (Auto) 10.7 H Eos % (Auto) 2.6 Baso % (Auto) 0.6 Immature Gran # (Auto) 0.02 Neut # (Auto) 3.36 Lymph # (Auto) 1.30 Warrick # (Auto) 0.58 Eos # (Auto) 0.14 Baso # (Auto) 0.03 Sodium 137 Potassium 3.8 Chloride 99 Carbon Dioxide 26 Anion Gap 12 BUN 10 Creatinine 1.0 Estimated GFR/1.73 m2 > 60 BUN/Creatinine Ratio 10 Glucose 98 Calculated Osmolality 273 Calcium 9.3 Magnesium 1.9 Total Bilirubin 0.70 AST 16 ALT 19 Alkaline Phosphatase 74 Total Protein 7.8 Albumin 4.3 Globulin 4.0 Albumin/Globulin Ratio 1.0 Orders Category Date Time Status Cardiac Monitoring DIRECTED Care 06/13/16 16:14 Active Oxygen Therapy- ED Nursing DIRECTED Care 06/13/16 16:14 Active Saline Loc NOW Care 06/13/16 16:14 Active CHEST-PORTABLE [RAD] Stat Exams 06/13/16 16:14 Draft BLOOD CULTURE [BLDCUL] Stat Lab 06/13/16 16:14 Ordered CBC WITH ELECTRONIC DIFF [HEME] Stat Lab 06/13/16 16:25 Completed COMPREHENSIVE METABOLIC PANEL [CHEM] Stat Lab 06/13/16 16:25 Completed MAGNESIUM [CHEM] Stat Lab 06/13/16 16:25 Completed 0.9% Sodium Chloride Inj [Ns] 1,000 ml Med 06/13/16 16:14 Discontinued IV 999 mls/hr Result Diagrams: 06/13/16 16:25 06/13/16 16:25 - REASSESSMENT Reassessment #1 Time Reassessed: 18:00 Status: improving (Pt is stable and will be arranged transfer to [place] by Dr. Pierce. Informed Dr. Sera Iqbal and suggested IV Solu-medrol and pain pills.) - XRAY 1 XRAY Study: Chest Impression: Abnormal XRAY Interpretation: R perihilar infiltrate, - CONSULTS/PCP/HOSPITALIST Notification #1 *Consult[facility]*: [facility] Time Discussed: 17:50 Reason/Comments: will call hospitalist at [place] Consult Disposition: Admit (to [facility]) Departure - Departure Time of Disposition Decision: 17:53 DIAGNOSIS: Pleural effusion, Mass of mediastinum Lymphoma Qualifiers: Lymphoma type: unspecified type Disposition: ADMITTED INPATIENT 09 Certified Medical Emergency: Emergent Condition: Stable Referrals and Follow-Ups: Sera Iqbal MD [Primary Care Provider] - - Critical Care Note This patient required my direct & personal management of CC.: No This chart was documented by the indicated scribe, (Chase Resendiz, Scribe) and accurately reflects the services I performed and decisions made by me, Maryjane Nichols MD, as attested by the provider's signature.
[2016-06-13] MEDS ORDERED: NORCO-5 PO ONE (21:25)
[2016-06-14] MEDS ORDERED: NORCO-10 PO ONE (00:18)
[2016-06-14] MEDS ORDERED: ZOFRAN IV PRN (00:36)
[2016-06-14 01:19] LABS: INR 1.02; PROTIME 10.7 Seconds (9.2-11.7); PTT 29.4 Seconds (22.0-36.0)
[2016-06-14] MEDS ORDERED: ATIVAN PO PRN (01:30)
[2016-06-14] MEDS: DUONEB (A & A) INH SCH ×5 (03:24→22:50)
--- NOTE | 2016-06-14 04:08 | HISTORY AND PHYSICAL ---
TIME: 29. PRIMARY CARE PHYSICIAN/ONCOLOGIST: Dr. Sera Iqbal. SHOE TURNER: Dr. Edie Sotomayor. FANCY NEEDLEWORKER: Dr. Talley at [facility]. CHIEF COMPLAINT: Shortness of breath and chest pain. HISTORY OF PRESENT ILLNESS: Mr. Greenberg is a 41-year-old, male with a past medical history most notable for Hodgkin's lymphoma x2, non-small cell lung cancer, paroxysmal atrial fibrillation, COPD, morbid obesity, hypertension, and esophageal stricture as well as esophagitis and gastritis. He was most recently admitted in April of 2016. For a food impaction with esophageal strictures. He did undergo an EGD with Dr. Sotomayor with findings of mid esophageal stenosis with radiation changes status post dilation, Demarco's esophagus, erosive esophagitis, erosive gastritis, and duodenitis. The patient reports that he previously, last year, received a total of 34 radiation treatments as well as 4-5 rounds of chemotherapy for treatment of his non- small cell lung carcinoma. He reports that he is receiving no active treatments at this time and is being followed by Dr. Iqbal. The reports yesterday an onset of worsening shortness of breath as well as substernal chest pain radiating into his right neck and right jaw that he reports is a pressure-type pain. It is constant and occurs while he is at rest. He denies any dizziness, lightheadedness, nausea, or vomiting. The patient did undergo a CT of thorax with contrast which was ordered by Dr. Iqbal yesterday that showed worsening in the mediastinal and right hilar lymphadenopathy which is producing mass effect upon the pulmonary artery and SVC, and narrowing of the right bronchial tree. Also noted was increased attenuation throughout the medial right lung, compatible with tumor, infiltration, pneumonia, or atelectasis. Dr. Iqbal did instruct the patient to go to the ER for further evaluation. The patient presented to the ER at [facility] this afternoon with complaints of shortness of breath and chest pain. A portable chest x-ray was performed which showed a stable right perihilar infiltrate. The patient is afebrile, though has reported some chills. White blood cell count is within normal limits at 5.43. His serum chemistry labs were within normal limits. The patient has been transferred to [facility] for admission for further treatment and evaluation of his worsening shortness of breath and chest pain. After the patient's arrival to [facility] and upon our evaluation, in addition to his shortness of breath and chest pain, he did report a cough that is nonproductive. He also reports that he recently was treated for a sinus infection and finished a round of amoxicillin approximately 2 weeks ago, though he is still experiencing a headache. He does complain of a sore throat but states that this has been ongoing for approximately a 3-4 weeks. He does report, in the last 2 days, that he has had difficulty swallowing liquids and food. He denies any dizziness , lightheadedness, abdominal pain, nausea, vomiting, diarrhea, or constipation. He reports that his last bowel movement was this morning and it was normal. He denies any hematochezia or melena. He denies any pain, numbness, tingling, or swelling in extremities. He also denies any dysuria or urinary frequency. REVIEW OF SYSTEMS: A 12 point review of systems was conducted with the patient. All were negative except for pertinent positives mentioned above in the HPI. PAST MEDICAL HISTORY: 1. Hodgkin's lymphoma x2, in remission. 2. Non-small cell lung cancer. 3. Chronic obstructive pulmonary disease. 4. Morbid obesity. 5. Hypertension. 6. Paroxysmal atrial fibrillation. 7. Esophageal stricture. 8. Food impaction with foreign body removal x3. 9. Erosive esophagitis. 10. Gastritis. 11. Duodenitis. 12. Demarco's esophagus. 13. Antral ulcer. 14. Gastric polyps. 15. Sleep apnea. PAST SURGICAL HISTORY: 1. Multiple lung biopsies. 2. Lymph node biopsy. 3. Lower back surgery. 4. Left port placement. 5. EGD x3. FAMILY HISTORY: Positive for his father passing away secondary to a myocardial infarction at the age of 54. His mother has a history of hypertension. SOCIAL HISTORY: The patient is . He does have 1 child. His was present at the bedside during our examination and is very attentive, and is also very helpful and knowledgeable about his present and past medical history. He has no present or past history of tobacco, alcohol, or illicit drug use, though does report that he was around heavy secondhand smoke in the past. ALLERGIES: The patient reports allergies to IV pain medication. The patient reports that he has had an adverse reaction, having to be placed in the ICU after receiving IV morphine and Dilaudid. He also reports allergies to morphine, tramadol, and Darvocet. HOME MEDICATIONS: 1. Lunesta 3 mg p.o. at bedtime. 2. Tambocor 50 mg p.o. b.i.d. 3. Neurontin 100 mg p.o. at bedtime. 4. [place] 7.5 two tablets every 4 hours p.r.n. as needed for pain. 5. Combivent Respimat inhaler 1 puff inhaled p.r.n. for wheezing, though the patient reports that he has not used this in approximately 4 months. 6. Ativan 1 mg p.o. at bedtime p.r.n. for anxiety. 7. Melatonin 5 mg p.o. at bedtime. 8. Metoprolol 50 mg p.o. q.a.m. 9. Omeprazole 40 mg p.o. daily. 10. Paxil 10 mg p.o. daily. 11. Carafate 1 g p.o. 4 times a day. DIAGNOSTIC DATA/LABORATORY RESULTS: White blood cell count 5.3, hemoglobin 13, hematocrit 38.7, platelet count is 233,000. PT 10.7, INR 1.02, PTT is 29.4. Sodium 137, potassium 3.8, chloride 99, bicarb 26, BUN is 10, creatinine 1.02, GFR greater than 60, glucose 98, calcium 9.3, magnesium 1.9. Liver function tests are within normal limits. A CK of 86, troponin less than 0.01. EKG shows a sinus rhythm with a first-degree AV block and left axis deviation. Ventricular rate was 90 with a QTc of 479. Chest portable shows a stable right perihilar infiltrate. It also showed some interval retraction of the left central venous catheter by approximately 1 cm versus entering the azygous vein. CT of thorax with contrast performed on June 12 shows worsening of mediastinal and right hilar lymphadenopathy which is producing mass effect upon the pulmonary artery and superior vena cava, and narrowing of the right bronchial tree. There is also increased attenuation throughout the right medial lung, compatible with tumor infiltration, pneumonia, or atelectasis. Also noted is a right effusion and a new hypodensity within the medial segment of the right lobe of the liver noted as well and is considered to be indeterminate. PHYSICAL EXAMINATION: VITAL SIGNS: Temperature 98.4 degrees, heart rate 102, respirations 18, blood pressure is 155/80, oxygen saturation is 96% on room air. GENERAL: In general, Mr. Greenberg is a pleasant, 41-year-old, male who is resting in the inpatient bed. He was awake and alert, and able to answer all questions appropriately. He was in no acute distress. HEENT: Head is atraumatic, normocephalic. Pupils are equal, round, reactive to light, were 3 mm bilaterally and brisk. Sclerae were white. No lesions noted. No tenderness noted upon palpation of the frontal and maxillary sinuses, though the patient appear to have some slight puffiness noted to the area on bilateral cheeks just under both eyes. Oral mucosa is moist. Oropharynx is clear. NECK: Supple. Trachea midline. No JVD noted. No carotid bruits noted upon auscultation bilaterally. CARDIOVASCULAR: Patient has normal S1, S2. No murmurs, gallops, or rubs appreciated, with a slightly tachycardic rate that is regular. PULMONARY: Patient has symmetrical chest expansion bilaterally. Lung sounds in bilateral full lung marte were slightly coarse. ABDOMEN: Soft, nontender. Non-distended, though the patient does have a protuberant abdomen noted. Bowel sounds were present in all 4 quadrants and were normoactive. EXTREMITIES: No cyanosis, clubbing, or edema is noted. Pulse, motor and sensory were intact in all extremities as well. Pulses were 3+ bilaterally. Capillary refill was less than 3. INTEGUMENTARY: The patient's skin is pink, warm, dry, and intact. No lesions or sores noted. NEUROLOGICAL: Patient is alert and oriented to person, place, time, and situation. Cranial nerves 2-12 are grossly intact. ASSESSMENT AND PLAN: 1. Non-small cell lung cancer. The patient does have findings as mentioned above with a CT of thorax. This could be contributing to his complaints of worsening dyspnea as well as chest pain. We have placed a consult with Dr. Iqbal and we will await her evaluation and further recommendations for management of this as well. 2. Worsening dyspnea. A CT of the chest did show a possible tumor infiltration , pneumonia, or atelectasis, though the patient is not febrile. White blood cell count is within normal limits. He is maintaining adequate oxygen saturation. Blood cultures have been placed but at this time, we have decided to hold off for treatment with antibiotics due to this may not likely be related to pneumonia. Patient has a score of 2.5 according to the Wells Criteria simplified clinical probability assessment. This score makes his probability for pulmonary embolism unlikely. We will await further evaluation and recommendations from Dr. Iqbal and will continue to monitor his respiratory status closely. 3. Chest pain. This could be related to his pain from his non-small cell lung cancer. We have performed an electrocardiogram and his first set of cardiac enzymes are negative. We will do a series of cardiac enzymes to rule out any further cardiac involvement, and monitor his cardiovascular status closely. He will be placed on continuous telemetry. 4.Dysphagia. Given the patient's history of esophageal stricture, we have placed a consult with Dr. Sotomayor the gastroenterology. We will place him nothing per oral after midnight tonight for a barium swallowing study in the morning. We will await these results as well as recommendations from Dr. Sotomayor. 5. Chronic obstructive pulmonary disease. Patient did have some coarse lung sounds upon auscultation. We have placed him on Solu-Medrol 40 mg intravenous every 12 hours as well as scheduled DuoNeb treatments every 6 hours. We will continue to monitor. 6. Sleep apnea. The patient has brought his CPAP machine to the hospital. We will have him wear this every night with sleep and we will continue to follow. 7. Hypertension. We will continue the patient's metoprolol and continue to monitor. 8. History of paroxysmal atrial fibrillation. We will continue the patient's Tambocor. He reports that he previously took Xarelto, though was recently taken off of this by Dr. Talley at [facility]. We will continue to monitor. 9. History of esophagitis and gastritis. We will continue the patient's omeprazole as well as Carafate, and await further recommendations from Dr. Sotomayor. Deep venous thrombosis prophylaxis will be provided with sequential compression devices. At this time, we will hold off on any prophylaxis with anticoagulation therapy due to patient may have to have a possible esophagogastroduodenoscopy for further evaluation of his onset of dysphagia. We will wait until his barium swallowing study results are back and we will continue to follow. He will be placed on CIC with telemetry. He will have vital signs every 4 hours. We will do fingerstick blood sugars before meals and at bedtime, given that he is receiving intravenous steroids. We will do strict intake and output, incentive spirometry every 4 hours while awake. We will repeat a CBC and BMP in the morning. Further orders and recommendations pending hospital course, diagnostic studies, and physician evaluation. Dictated by CRISTOBAL Garsia for Jaden Atkins MD Pt seen and examined by me. Discussed case with LOOPER OPERATOR. cc: Jaden Atkins MD MTDD
[2016-06-14 05:12] LABS: MANUAL DIFF NEEDED? NO
[2016-06-14 05:20] LABS: EOS# 0.01 X1000 (0.0-0.7); EOS% 0.2 % (0.0-10.0); HEMATOCRIT 39.8 % (42.0-52.0); HEMOGLOBIN 13.5 g/dL (14.0-18.0); IMM GRAN# 0.02 X1000 (0.0-0.04); IMM GRAN% 0.3 % (0.0-0.5); LYMPH# 0.89 X1000 (1.2-3.4); MCH 28.4 PG (27-31); MCHC 33.9 g/dL (33-37); MCV 83.6 FL (81-99); MONO# 0.08 X1000 (0.11-0.59); MONO% 1.3 % (1.7-9.3); MPV 10.5 FL (7.4-10.4); NEUT% 83.2 % (42.2-75.2); PLT 284 X1000 (130-400); RBC 4.76 XMIL (4.7-6.1)
--- NOTE | 2016-06-14 05:24 | EKG Report ---
Test Performed on : 06/14/2016 00:32:21 AM Test Reason : Chest Pain Blood Pressure : / mmHG Vent. Rate : 090 BPM Atrial Rate : 090 BPM P-R Int : 210 ms QRS Dur : 104 ms QT Int : 392 ms P-R-T Axes : 048 -55 087 degrees QTc Int : 479 ms Sinus rhythm. with 1st degree AV block. Left axis deviation Abnormal ECG When compared with ECG of 23-NOV-2015 13:17, QRS axis shifted left Confirmed by Reji Perez MD ([id number]) on 06/14/2016 9:10:36 AM
[2016-06-14] MEDS: SOLU-MEDROL IV SCH ×2 (05:42→18:25)
[2016-06-14 05:45] LABS: AGAP 11; BUN 8 mg/dL (8-22); CALCIUM 9.3 mg/dL (8.8-10.2); CHLORIDE 98 mmol/L (98-107); COSMO 273; POTASSIUM 4.5 mmol/L (3.5-5.1); SODIUM 134 mmol/L (136-145); TCO2 25 mmol/L (25-35)
[2016-06-14] MEDS ORDERED: NORCO-7.5 PO PRN (06:00)
[2016-06-14] MEDS ORDERED: PRILOSEC PO SCH (07:00)
[2016-06-14] MEDS: TAMBOCOR PO SCH ×2 (08:49→20:32)
[2016-06-14] MEDS: LOPRESSOR PO SCH (08:49)
[2016-06-14] MEDS: PAXIL PO SCH (08:49)
--- NOTE | 2016-06-14 08:49 | Diag Imaging Result Document ---
PROCEDURE NAME: BA SWALLOW-ESOPHAGUS - 06/14/2016 BARIUM SWALLOW WITH AIR: 14 films submitted. FLUORO TIME: 1 minute 13 seconds. TOTAL DOSE: 2406.5 cGy cm2 FINDINGS: There is good coating and distension of the esophagus. No esophagus mass or stricture. No evidence of esophagitis. No reflux occurred during the exam. No hiatal hernia. IMPRESSION: Normal barium swallow.
[2016-06-14] MEDS ORDERED: CARAFATE PO SCH (09:00)
[2016-06-14] MEDS: CARAFATE LIQUID PO SCH ×4 (10:21→20:31)
[2016-06-14] MEDS: NORCO-7.5 PO PRN ×6 (10:27→23:17)
[2016-06-14] MEDS: PROTONIX IV SCH ×2 (10:28→20:30)
--- NOTE | 2016-06-14 11:25 | PROGRESS NOTE ---
DATE: 06/14/2016 SUBJECTIVE: Patient reports feeling pain all over. Patient reports that he has allergies to morphine, fentanyl patch, and Dilaudid. OBJECTIVE: Vital Signs: Temperature 96.8, heart rate 106, respiratory rate 18, blood pressure 132/69, O2 saturation 95% on room air. General Examination: This is a chronically ill-looking, obese, 41-year-old, male, lying in bed, in no acute distress. HEENT: Head is normocephalic and atraumatic. Anicteric sclerae and pale conjunctivae. Mucous membranes moist. Neck: Supple. No JVD noted. No carotid bruits. No lymphadenopathy. No thyromegaly. Cardiovascular Examination: S1 and S2 heard. No murmurs, gallops, or rubs. Regular rate and rhythm. Respiratory Examination: Clear bilaterally to auscultation. No work of breathing or using accessory muscles. Abdomen: Soft, nontender to palpation. Bowel sounds present. No organomegaly. Extremities: No cyanosis, clubbing, or edema. Peripheral pulses present in both legs. Neurological Examination: Patient is alert and oriented x3. Able to move 4 extremities. Cranial nerves 2-12 are grossly normal. Laboratory Data: Reviewed. ASSESSMENT AND PLAN: 1. Non-small cell lung cancer/lymphoma. The patient has been followed by Dr. Sera Iqbal. Recent CT of the chest ordered by her noted more worsening disease so we are basically waiting for her to see what will be the next step in the management of this patient. 2. Dysphagia. We have order a swallowing test. The patient has passed so we are going to start a gastrointestinal soft diet and we will increase it as tolerated. 3. Chronic obstructive pulmonary disease. Patient is on home medication . 4. Sleep apnea. Patient is on CPAP machine. 5. Hypertension. Blood pressure is under control. 6. History of paroxysmal atrial fibrillation. At this point, this patient's heart rhythm is okay. 7. History of erosive esophagitis and gastritis. Patient is on Protonix 40 mg intravenous every 12 hours. cc: Jose Nicole MD
[2016-06-14] MEDS ORDERED: SODIUM CHLORIDE 0.9% 10 ML ONE (20:13)
[2016-06-14] MEDS ORDERED: AMBIEN PO SCH (21:00)
[2016-06-14] MEDS ORDERED: NEURONTIN PO SCH (21:00)
[2016-06-14] MEDS ORDERED: MELATONIN PO SCH (21:00)
--- NOTE | 2016-06-15 01:30 | CONSULTATION ---
DATE OF CONSULTATION: 06/14/2016 REFERRING PHYSICIAN: Dr. Jose Nicole M.D. INDICATION FOR CONSULTATION: Dysphagia. PRIMARY CARE PROVIDER: Dr. Sera Iqbal M.D. HISTORY OF PRESENT ILLNESS: The patient is a 41-year-old, white male, who has lung cancer, and is status post radiation to the chest. He is presented with multiple food impactions, and has required esophageal dilation in the past. This admission, he was admitted with shortness of breath and chest pain. According to the patient, he was recently found to have increasing lymph nodes in the mediastinum and right hilum, which were producing mass effect. His CT from 06/12/2016, is worrisome for compression of the pulmonary artery and SVC syndrome with narrowing of the right bronchial tree. He also was noted to have increased attenuation in the medial right lung consistent with either tumoral infiltration or pneumonia. He has a new right pleural effusion, and new hypodense lesions in the medial segment of the right lobe of the liver, considered indeterminate. We are asked to participate in his care because of his dysphagia. It should be noted that on the morning of consultation, he underwent a swallow study, which was read as normal. The patient states that he is somewhat anxious because of the shortness of breath, and his desire to know what's causing his difficulty. PAST MEDICAL HISTORY: 1. Aspiration pneumonia. 2. Pulmonary edema. 3. Lung cancer. 4. COPD. 5. Lymphoma. 6. Sleep apnea. 7. Atrial fibrillation. 8. Hilar adenopathy, resulting in SVC syndrome, with compression of the right bronchial tree. 9. Obesity. 10. Erosive esophagitis. 11. Recurrent food impaction. 12. Grade B erosive esophagitis. 13. Possible Demarco's esophagus. 14. Erosive gastritis. 15. Gastric ulcer. 16. Duodenitis. 17. Gastric polyps. PAST SURGICAL HISTORY: 1. Back surgery. 2. Port-A-Cath placement. 3. Multiple lung biopsies. FAMILY HISTORY: Remarkable for hypertension in his mother. She is alive. His father at age 64 years of age, secondary to a myocardial infarction. There is no history of cancer. SOCIAL HISTORY: Remarkable in that the patient is . He denies alcohol or recreational drug use at this time. He has a history of heavy alcohol use in the past. He also consumed marijuana, cocaine and crack on a regular basis in the past. He states that he has been alcohol free and drug free for 16 years. HOME MEDICATIONS: 1. Lunesta. 2. Tambocor. 3. Neurontin. 4. [place] 7.5. 5. Combivent. 6. Ativan. 7. Melatonin. 8. Metoprolol. 9. Omeprazole. 10. Paxil. 11. Carafate. MEDICATION ALLERGIES: IV pain medications, which resulted in respiratory arrest. He required ICU admission, and was nearly intubated after respiratory depression, following administration of IV morphine and IV Dilaudid. The patient prefers to avoid pain medications. REVIEW OF SYSTEMS: Remarkable for shortness of breath and chest discomfort. He reports his foods are sticking again. He denies a food impaction since his last endoscopy. PHYSICAL EXAMINATION: OBJECTIVE: Vital Signs: On exam, his blood pressure is 129/73, pulse is 90, respiration 18, temperature of 97.6. HEENT: Notable for anicteric sclerae. His conjunctivae are normal. His oropharyngeal mucosa membranes moist. His facies are remarkable for facial edema and neck swelling, which are worrisome for superior vena cava syndrome. Pulmonary: Breath sounds are coarse bilaterally. Cardiovascular: He has rate and rhythm with no gallops or rubs. Abdominal: Reveals normoactive bowel sounds. The abdomen is soft, nontender, with central adiposity. Extremities: Bilaterally are negative for cyanosis, clubbing, or edema. OBJECTIVE DATA: Reveals a hemoglobin of 13.5, with hematocrit of 39.8, and a white count of 5.95. He has 284,000 platelets. His PT is 10.7, with an INR of 1.02, and a PTT of 29.4. Sodium is 134, potassium 4.5, chloride 98, CO2 of 25, BUN 8, creatinine 0.9, with a glucose of 214. His calcium is 9.3, with a CK of 68, and a troponin less than 0.010. IMPRESSION: 1. Dysphagia. 2. Superior vena cava syndrome. 3. History of esophageal stricture. 4. Recurrent food impaction. 5. GERD. 6. History of peptic ulcer disease. 7. Central morbid obesity. RECOMMENDATION: 1. The patient had a normal swallow study. This suggests that his symptoms may be more related to his superior vena cava syndrome, as opposed to gastroesophageal reflux disease. Therefore, I will defer to Dr. Sera Iqbal for management of his superior vena cava syndrome. 2. From a GI perspective, I would continue Protonix 40 mg IV q.12 hours. 3. Continue Carafate suspension 1 g p.o. 4 times a day, as this has resulted in symptomatic improvement. I would discontinue treatment after 12 weeks. 4. The patient is currently tolerating a regular diet. I would continue his current dietary management. 5. Additional recommendations will be based on his clinical course. cc: MD Sera Espinal MD MTDD
[2016-06-15] MEDS: NORCO-7.5 PO PRN ×2 (02:54→05:00)
[2016-06-15] MEDS: SOLU-MEDROL IV SCH ×2 (06:05→17:47)
[2016-06-15] MEDS: CARAFATE LIQUID PO SCH ×3 (06:05→15:46)
[2016-06-15] MEDS ORDERED: VICOPROFEN 200/7.5 MG PO PRN (08:27)
[2016-06-15] MEDS: PAXIL PO SCH (09:01)
[2016-06-15] MEDS: LOPRESSOR PO SCH (09:01)
[2016-06-15] MEDS: PROTONIX IV SCH (09:01)
[2016-06-15] MEDS: TAMBOCOR PO SCH (09:01)
[2016-06-15] MEDS: OFIRMEV 1000 MG/ISOTONIC SOLN 1,000 MG/100 ML BOTTLE IV SCH ×2 (09:01→15:47)
[2016-06-15] MEDS: DUONEB (A & A) INH SCH ×2 (09:28→15:23)
--- NOTE | 2016-06-15 10:33 | PROGRESS NOTE ---
DATE: 06/15/2016 SUBJECTIVE: The patient reports that he is still hurting in the chest and also in the back and right side of the neck. He denies any fever, chills. OBJECTIVE: Vital Signs: Temperature 98.6 degrees, heart rate 92, respiratory rate 20, blood pressure 137/74, O2 is 98% on room air. General: This is a chronically ill-looking, obese, 41- year-old male, lying in bed, in no acute distress. HEENT: Head is normocephalic and atraumatic. Anicteric sclerae and pale conjunctivae. Mucous membranes moist. Neck: Supple. No JVD noted. No carotid bruits. No lymphadenopathy. No thyromegaly. Cardiovascular: S1, S2 heard. No murmurs, gallops, or rubs. Regular rate and rhythm. Respiratory: Clear bilaterally to auscultation. No work of breathing or using accessory muscles. Abdomen is soft, nontender to palpation. Bowel sounds present. No organomegaly. Extremities: No clubbing, cyanosis, or edema. Peripheral pulses present in both legs. Neurologic: The patient is alert and oriented x3. Moves 4 extremities. LABORATORY DATA: There are no labs from today. ASSESSMENT AND PLAN: 1. Non small-cell lung cancer/lymphoma. The patient has been seen by Dr. Iqbal. Per reading her note in the chart, she has contacted Dr. Singletary, and she will receive therapy for this superior vena cava syndrome. We will see what they have to say. 2. Dysphagia. Swallowing test was fine and, also, Dr. Sotomayor has been consulted, so I think mild problems with dysphagia are not secondary to any gastrointestinal problem but to superior vena cava syndrome. The patient is going to have radiation today. We will check on him later. 3. Chronic obstructive pulmonary disease. The patient is on home medications. 4. Sleep apnea. The patient is using CPAP machine in the hospital. 5. Chronic pain. Because of the cancer, the patient is still hurting but, unfortunately, she has developed allergies to morphine and Dilaudid. At this time, we are changing the medication to Vicodin 7.5 mg/200 mg 2 tablets p.o. every 2 hours p.r.n. for pain and, also, Tylenol IV as well. We will see how this patient does. Otherwise, we probably need to use Dilaudid in very tiny doses to see if this patient tolerates that medication. 6. History of paroxysmal atrial fibrillation. By now, the patient is in normal sinus rhythm. We will continue with the same management. 7. History of erosive gastritis and esophagitis. The patient is on Protonix 40 mg IV q.12 hours. We will continue with the same management. [employer] is on board. cc: Jose Nicole MD
[2016-06-15] MEDS: VICOPROFEN 200/7.5 MG PO PRN ×2 (11:58→15:18)
[2016-06-15 15:59] VITALS: BP 132/65
--- NOTE | 2016-06-16 05:49 | DISCHARGE SUMMARY ---
ADMISSION DATE: 06/13/2016 DISCHARGE DATE: 06/15/2016 DISPOSITION: The patient transferred to [facility]. CONSULTATIONS: Dr. Edie Sotomayor MD PERTINENT PROCEDURES: Barium swallow normal. DISCHARGE DIAGNOSES: 1. Non-small cell lung cancer lymphoma. The patient has been seen by Dr. Iqbal. She has contacted Dr. Singletary to see if the patient can receive therapy for superior vena cava syndrome. However, due to the patient's condition he is unable to get that done here. He will be transferred to [facility] where he can have a more invasive procedure. 2. Dysphagia. His swallowing study was normal, however, it was felt that his swallowing problems are secondary to his superior vena cava syndrome. 3. COPD disease without exacerbation. 4. Sleep apnea. Continue CPAP. 5. Chronic pain secondary to the patient's cancer. Unfortunately, he has developed allergies to morphine and Dilaudid. He was changed to Vicodin as well as IV Tylenol. 6. Paroxysmal atrial fibrillation history in sinus rhythm. 7. History of erosive gastritis and esophagitis. 8. Patient transferred to [facility] for palliative therapy for his superior vena cava syndrome. 9. Superior vena cava syndrome. HOSPITAL COURSE: Mr. Greenberg is an unfortunate 41-year-old male with past medical history of Hodgkin lymphoma x2 non cell lung cancer, paroxysmal atrial fibrillation, COPD, morbid obesity, hypertension, esophageal stricture as well as esophagitis and gastritis most recently admitted in April of 2016 for food impaction with esophageal strictures. He did undergo an EGD with Dr. Sotomayor and had a dilatation. On the day of admission, patient started having worsening shortness of breath with substernal chest pain that radiated to his neck and right jaw. It was a pressure-like pain that was constant and occurring at rest. The patient underwent a CT of the thorax that showed a worsening mediastinal and right hilar lymphadenopathy with producing mass effect in the pulmonary artery and SVC with narrowing of the right bronchial tree. Also noted was an increased attenuation throughout the medial right lung compatible with tumor infiltration, pneumonia or atelectasis. The patient initially presented to [facility] and was transferred to [facility]. The patient was placed on CIC with telemetry. Cardiac enzymes were trended. Dr. Sotomayor was consulted for his dysphagia. He underwent a modified barium swallow that was normal. Dr. Iqbal had saw the patient and talked to Dr. Singletary about palliative radiation. However, the patient was not a candidate so she has gotten him transferred to [facility] where he can receive special treatment for his severe superior vena cava syndrome. The patient's cardiac enzymes have remained negative. He will be transferred to [facility] today. VITAL SIGNS: Temperature is 98 degrees, heart rate 101, respirations 16, blood pressure 138/66, and O2 is 98% on room air. DISCHARGE MEDICATIONS: As per Dr. Clemons as per Oncology as well as Dr. Sotomayor. Please see MAR. DISPOSITION: Patient is discharged to [facility] for further treatment. TIME SPENT: 35 minutes. Dictated by CRISTOBAL Barreto for Jose Nicole MD cc: Jose Nicole MD MTDD
--- NOTE | 2016-06-16 15:18 | CONSULTATION ---
DATE OF CONSULTATION: 06/14/2016 CONSULTATION REQUESTED BY: The hospitalist service. CONSULTATION IS FOR: Patient known to us lung cancer. HISTORY OF PRESENT ILLNESS: Mr. Greenberg is a 41-year-old male who is known to us as we previously treated him for non-small cell lung cancer who presented to the [facility] ER complaining of chest pain, increased shortness of breath, facial swelling and difficulty with swallowing. Patient had actually been to the [facility] ER the night before with the same complaints. A CT of the chest at that time showed have to have mediastinal and right hilar lymphadenopathy with mass affect upon the pulmonary artery in the SVC and narrowing of the right bronchial tree. The patient was not admitted at that time. He did call our office the next day reporting his symptoms were starting to gradually get worse. We advised him to go to emergency department. He has now been admitted for further evaluation and treatment. PAST MEDICAL HISTORY: 1. History of lymphoma currently in remission. 2. Non-small cell lung cancer. 3. COPD. 4. Morbid obesity. 5. Hypertension. 6. Paroxysmal atrial fibrillation. 7. Esophageal strictures. 8. Food impaction with foreign body removal x3. 9. Erosive esophagitis. 10. Gastritis. 11. Duodenitis. 12. Sleep apnea. PAST SURGICAL HISTORY: 1. Multiple lung biopsies. 2. Lymph node biopsy. 3. Lower back surgery. 4. Port placement on the left. 5. Previous EGDs. SOCIAL HISTORY: Patient is and has 1 child. He lives with his . No present history of tobacco, alcohol or illicit drug use. He previously reports being around heavy secondhand smoke in the past. FAMILY HISTORY: Positive for his father who had a myocardial infarction. Mother had a history of hypertension. REVIEW OF SYSTEMS: As per the HPI. All else is either negative or noncontributory. PHYSICAL EXAMINATION: Vital Signs: Temperature 96.8 degrees, heart rate 106, respirations 18, blood pressure 132/69, O2 saturation 95% on room air. General: This is a morbidly obese male sitting up in his hospital chair eating lunch. His is sitting next to him. He is in no acute distress. HEENT: Head is normocephalic, atraumatic. Pupils equal, reactive. Ears, nose, throat, neck, and mouth: Oral mucosa appears to be normal. Trachea is midline. Gross auditory acuity is intact. Cardiovascular: Tachycardia heard but is a regular rhythm. S1- S2. Respiratory: Lungs are essentially clear to auscultation bilaterally with normal respiratory effort at this time. Gastrointestinal: Obese. Positive bowel sounds. Nontender. Nondistended. Musculoskeletal: No obvious bony abnormalities. Extremities: No edema x4. There is no upper extremity edema. Neurologic: Patient alert and oriented x3 with no focal motor deficits. LABS AND STUDIES: White blood cells 5.95, hemoglobin 13.5, hematocrit 39.8, platelets 284,000. Sodium 135, potassium 4.5, chloride 98, CO2 25, BUN 8, creatinine 0.9, glucose 214. Barium swallow was normal. CT scan as per HPI. ASSESSMENT AND PLAN: 1. Non-small cell lung cancer. Worsening scans as per above which were compared to 06/15/2015. The patient does now appears to have early superior vena cava syndrome certainly on scans and clinically. Will have to see about further radiation as a possible way to treat his SVC syndrome. The patient has previously had radiation with both his lymphoma history as well as his [id number] lung history. If he cannot have radiation likely will need an SVC stent placed. 2. Superior vena cava syndrome. Continue steroids for now as well as the pain medication. Add O2. See above for possible treatment options. 3. Dysphagia. Barium swallow was previously normal. GI has been consulted. Any troubles likely related to his superior vena cava syndrome. 4. Paroxysmal atrial fibrillation. Regular rhythm at this time. Continue to monitor. 5. Erosive gastritis. Continue current management. 6. History of lymphoma. Known. We want to thank you for this consult and allowing us to participate in Mr. Greenberg' care. Will continue follow along, adjust our treatment plan per his hospital course. Dictated by SUKHI Sutherland for Sera Iqbal MD cc: Sera Iqbal MD
== END 2016-06-15 18:20 | disposition short-term general hospital (02) ==
LOC: P.ED 15:57 → P.EDIPHOLD 18:49 → SUATTDRO 18:49 → 3S 21:57
PROVIDERS: ATTEND Internal Medicine

== ENCOUNTER 2016-08-15 01:05 | Inpatient (IN) ==
[~2016-08-15 01:05] MED LIST: NS 1,000 ML IV ONE
[2016-08-15] MEDS ORDERED: NS 2,000 ML ONE (01:21)
[2016-08-15 02:00] LABS: MANUAL DIFF NEEDED? NO
[2016-08-15 02:03] LABS: EOS# 0.04 X1000 (0.0-0.7); EOS% 1.4 % (0.0-10.0); HEMATOCRIT 34.9 % (42.0-52.0); HEMOGLOBIN 11.7 g/dL (14.0-18.0); IMM GRAN# 0.04 X1000 (0.0-0.04); IMM GRAN% 1.4 % (0.0-0.5); LYMPH% 41.5 % (20.5-51.1); MCH 28.7 PG (27-31); MCHC 33.5 g/dL (33-37); MCV 85.5 FL (81-99); MONO# 0.28 X1000 (0.11-0.59); MONO% 9.7 % (1.7-9.3); MPV 10.1 FL (7.4-10.4); PLT 278 X1000 (130-400); RBC 4.08 XMIL (4.7-6.1)
[2016-08-15 02:20] LABS: AGAP 17; ALKALINE PHOSPHATASE 47 U/L (32-122); BUN 7 mg/dL (8-22); CALCIUM 9.8 mg/dL (8.8-10.2); CHLORIDE 100 mmol/L (98-107); COSMO 276; GOT 15 U/L (10-34); GPT 33 U/L (10-44); POTASSIUM 3.9 mmol/L (3.5-5.1); SODIUM 139 mmol/L (136-145); TCO2 22 mmol/L (25-35); TOTAL BILIRUBIN 1.53 mg/dL (0.20-1.00)
[2016-08-15] MEDS ORDERED: HYDROCODONE/APAP 7.5-325/15 ML PO ONE (02:26)
[2016-08-15] MEDS ORDERED: PHENERGAN IV ONE (02:39)
[2016-08-15] MEDS ORDERED: SODIUM CHLORIDE 0.9% INJ ONE (02:39)
[2016-08-15] MEDS ORDERED: NS 1,000 ML IV ONE ×2 (03:57→06:04)
--- NOTE | 2016-08-15 04:08 | PROVIDER DOCUMENTATION ---
This chart was entered by Jeanie Alex Scribe, acting as scribe for Jamie Kuo MD. HPI-Chest Pain - General Stated Complaint: cp a-fib rvr Time Seen by Provider: 08/15/16 01:20 Source: patient Allergies/Adverse Reactions: Patient Allergies Allergy/AdvReac Type Severity Reaction Status Date / Time morphine Allergy ANAPHYLAXIS Verified 08/15/16 01:49 propoxyphene napsylate * Allergy SWELLING Verified 08/15/16 01:49 [From Darvocet-N] tramadol HCl * [From Ultram] Allergy SWELLING Verified 08/15/16 01:49 IV pain meds Allergy Unknown Uncoded 08/15/16 01:49 Home Medications: Home Medication List Medication Instructions Recorded Confirmed Last Taken Type Flecainide Acetate 50 mg PO BID 08/02/15 08/15/16 08/14/16 History Metoprolol [Lopressor] 100 mg PO QAM 11/23/15 08/15/16 08/14/16 History Eszopiclone [Lunesta] 3 mg PO QHS 03/01/16 08/15/16 08/14/16 History Lorazepam [Ativan] 1 mg PO QHS 03/01/16 08/15/16 08/14/16 History Paroxetine [Paxil] 20 mg PO DAILY 03/01/16 08/15/16 08/14/16 History Melatonin 5 mg PO QHS 05/15/16 08/15/16 08/14/16 History Omeprazole [Prilosec] 40 mg PO DAILY #30 capsule. 05/15/16 08/15/16 08/14/16 Rx Ipratropium/Albuterol INH 1 puff IH PRN PRN 06/14/16 08/15/16 08/14/16 History [Combivent Respimat Inhaler] Hydrocodone/Acetaminophen [[place] 2 tab PO PRN PRN 08/09/16 08/15/16 08/14/16 History 7.5-325 Tablet] Hydrocortisone [Cortef] 10 mg PO HS 08/09/16 08/15/16 08/14/16 History Hydrocortisone [Cortef] 20 mg PO DAILY 08/09/16 08/15/16 08/14/16 History Oxycodone HCl [Oxycodone HCl] 15 mg PO BID 08/09/16 08/15/16 08/14/16 History Sucralfate [Carafate] 1 gm PO DAILY 08/09/16 08/15/16 08/14/16 History Apixaban [Eliquis] 1 tab PO BID 08/15/16 08/15/16 08/14/16 History Furosemide [Lasix] 20 mg PO ORDERED 08/15/16 08/15/16 Unknown History Ondansetron HCl [Zofran] 8 mg PO PRN PRN 08/15/16 08/15/16 08/14/16 History - History of Present Illness-CP Nature of Presenting Problem: 41 Y/O M presents to ED with chest pain. Pt states that his chest pain began this morning and 30 mins [employer]. Pt states that the pain increased his SOB. pT has hx of cancer in his lungs, states poor solids and liquids intake. Location: reports: central Chest Pain Radiation: reports: no radiation Quality of Pain: reports: tightness Severity in ED: moderate Onset/Duration: gradual (increased), just prior to arrival, 1/2 hour ago, this morning Timing: still present Context/Activities at Onset: reports: none Associated Symptoms: reports: shortness of breath. denies: abdominal pain, fever/chills Nitro Today/Relief: no nitro taken today Aspirin Treatment Today: no aspirin today Recently Seen Here or By Another Healthcare Provider: Yes Review of Systems - Adult - REVIEW OF SYSTEMS - ADULT Constitutional: denies: chills, fever Eyes: reports: no symptoms reported Ears, Nose, Mouth & Throat: reports: no symptoms reported Cardiovascular: reports: chest pain. denies: irregular heart rate Respiratory: reports: shortness of breath. denies: chronic cough, cough, dyspnea on exertion Gastrointestinal: reports: no symptoms reported Genitourinary: reports: no symptoms reported Musculoskeletal: reports: no symptoms reported Integumentary: reports: no symptoms reported Neurological: reports: no symptoms reported Psychiatric: reports: no symptoms reported Endocrine: reports: no symptoms reported Hematologic/Lymphatic: reports: no symptoms reported Allergic/Immunologic: reports: no symptoms reported All Other Systems: Reviewed and Negative Past History - Adult - PAST MEDICAL HISTORY-ADULT Review of Records: reports: Old Records Reviewed, Nursing Assessment Review, Medications Reviewed, Social history reviewed & non-contributory. Major Childhood Illnesses: reports: denies history Cardiovascular: reports: HTN Respiratory: reports: COPD, cancer Gastrointestinal: reports: GERD Obstetrical/Gynecological: reports: denies history Genitourinary: reports: kidney stones Musculoskeletal: reports: denies history Neurological: reports: denies history Endocrine/Immune: reports: Lymphoma (hodgkins) Other Conditions: reports: other cancer - PRIOR SURGERIES/PROCEDURES Surgical/Procedure History: reports: back/neck, other (chest, biospy) - IMMUNIZATION STATUS Childhood Immunizations: See Nurse Assessment Flu Vaccine: See Nurse Assessment - FAMILY HISTORY Family History: reviewed, not pertinent Physical Exam-General - CONSTITUTIONAL General Appearance: alert, mild distress, obese - EYES Eyes: pink conjunctivae - HEAD, EARS, NOSE, MOUTH & THROAT HENMT: moist mucous membranes, normal ENT inspection - NECK Neck: full range of motion, supple, normal inspection - RESPIRATORY Respiratory: lungs clear, normal breath sounds - CARDIOVASCULAR Cardiovascular: regular rate, rhythm - GASTROINTESTINAL (ABDOMEN) Abdominal Exam: non tender, soft - MUSCULOSKELETAL Back Exam: no CVA tenderness, no vertebral tenderness Extremity: non-tender - SKIN Integumentary: normal color, normal turgor, warm/dry - NEUROLOGIC Neurologic: grossly normal - PSYCHIATRIC Psych/Mental Status: normal mood/affect, normal thought content, normal thought process, oriented x 3 Progress - PLAN OF CARE/RESULTS Progress/Plan/Lab Results: Vital Signs - 8 hr 08/15/16 01:00 Temperature 97.5 F L Pulse Rate 133 H Respiratory Rate 25 H Blood Pressure 115/75 O2 Sat by Pulse Oximetry 98 Laboratory Results - last 24 hr 08/15/16 08/15/16 08/15/16 01:05 01:05 01:05 WBC 2.89 L RBC 4.08 L Hgb 11.7 L Hct 34.9 L MCV 85.5 MCH 28.7 MCHC 33.5 RDW Std Deviation 16.5 H Plt Count 278 MPV 10.1 Immature Gran % (Auto) 1.4 H Neut % (Auto) 45.0 Lymph % (Auto) 41.5 Sullivan % (Auto) 9.7 H Eos % (Auto) 1.4 Baso % (Auto) 1.0 H Immature Gran # (Auto) 0.04 Neut # (Auto) 1.30 L Lymph # (Auto) 1.20 Sullivan # (Auto) 0.28 Eos # (Auto) 0.04 Baso # (Auto) 0.03 D-Dimer 0.63 H Sodium 139 Potassium 3.9 Chloride 100 Carbon Dioxide 22 L Anion Gap 17 BUN 7 L Creatinine 1.1 Estimated GFR/1.73 m2 > 60 BUN/Creatinine Ratio 6 Glucose 102 Calculated Osmolality 276 Calcium 9.8 Magnesium Total Bilirubin 1.53 H AST 15 ALT 33 Alkaline Phosphatase 47 Total Protein 7.0 Albumin 4.0 Globulin 3.0 Albumin/Globulin Ratio 1.3 Plasma Lactate 08/15/16 08/15/16 01:05 01:05 WBC RBC Hgb Hct MCV MCH MCHC RDW Std Deviation Plt Count MPV Immature Gran % (Auto) Neut % (Auto) Lymph % (Auto) Sullivan % (Auto) Eos % (Auto) Baso % (Auto) Immature Gran # (Auto) Neut # (Auto) Lymph # (Auto) Sullivan # (Auto) Eos # (Auto) Baso # (Auto) D-Dimer Sodium Potassium Chloride Carbon Dioxide Anion Gap BUN Creatinine Estimated GFR/1.73 m2 BUN/Creatinine Ratio Glucose Calculated Osmolality Calcium Magnesium 1.8 Total Bilirubin AST ALT Alkaline Phosphatase Total Protein Albumin Globulin Albumin/Globulin Ratio Plasma Lactate 2.0 Orders Category Date Time Status CHEST-PORTABLE [RAD] Stat Exams 08/15/16 01:30 Taken BLOOD CULTURE [BLDCUL] Stat Lab 08/15/16 01:46 Results CBC WITH ELECTRONIC DIFF [HEME] Stat Lab 08/15/16 01:05 Completed COMPREHENSIVE METABOLIC PANEL [CHEM] Stat Lab 08/15/16 01:05 Completed D-DIMER [CHEM] Stat Lab 08/15/16 01:05 Completed LACTATE, PLASMA [CHEM] Stat Lab 08/15/16 01:05 Completed MAGNESIUM [CHEM] Stat Lab 08/15/16 01:05 Completed UA NIMS W/REFLEX CULT [URINALYSIS] Stat Lab 08/15/16 01:30 Uncollected 0.9% Sodium Chloride Inj [Ns] 1,000 ml Med 08/15/16 01:21 Discontinued .ROUTE As Directed 0.9% Sodium Chloride Inj [Ns] 1,000 ml Med 08/15/16 01:00 Discontinued IV 999 mls/hr 0.9% Sodium Chloride Inj [Ns] 1,000 ml Med 08/15/16 03:57 Active IV 999 mls/hr Hydrocodone/APAP 7.5-325/15 ml Med 08/15/16 02:26 Discontinued 20 ml PO NOW ONE Promethazine [Phenergan] Med 08/15/16 02:39 Discontinued 25 mg IV NOW ONE Sodium Chloride 0.9% Med 08/15/16 02:39 Discontinued 10 ml INJ NOW ONE EKG [EKG] Stat Ther 08/15/16 01:05 Ordered EKG [EKG] Stat Ther 08/15/16 03:20 Ordered He continues with regular tachycardia, possibly junctional or sinus at 130-140. The qrs axis has changed several times.. Will get Mg level Result Diagrams: 08/15/16 01:05 08/15/16 01:05 - XRAY 1 XRAY Study: Chest Impression: Abnormal XRAY Interpretation: cancer noted Departure - Departure Date of Disposition Decision: 08/15/16 Time of Disposition Decision: 04:07 DIAGNOSIS: Metastatic cancer, Mass of mediastinum Disposition: ADMITTED INPATIENT 09 Certified Medical Emergency: Emergent Condition: Poor - Critical Care Note This patient required my direct & personal management of CC.: Yes Total Time (mins): 30 Critical Care Statement: This patient required my direct personal management to treat or rule out processes, the absence of which, could potentiallly result in sudden, clinically significant life or limb threatening deterioration. This chart was documented by the indicated scribe, (Jeanie Alex Scribe) and accurately reflects the services I performed and decisions made by me, Jamie Kuo MD, as attested by the provider's signature.
[2016-08-15 04:51] LABS: PROTIME 10.5 Seconds (9.2-11.7); PTT 26.4 Seconds (22.0-36.0)
[2016-08-15 05:09] LABS: URINE CULTURE NEEDED? NO; URINE MICRO REVIEW NEEDED? NO; URINE SOURCE CLEAN CATCH
[2016-08-15] MEDS ORDERED: LOPRESSOR IV ONE (05:12)
[2016-08-15 05:13] LABS: BILIRUBIN URINE NEGATIVE (NEGATIVE); BLOOD URINE NEGATIVE (NEGATIVE); COLOR YELLOW; GLUCOSE URINE NEGATIVE (NEGATIVE); LEUKOCYTES URINE NEGATIVE (NEGATIVE); NITRITE URINE NEGATIVE (NEGATIVE); PH URINE 8.5; PROTEIN URINE NEGATIVE (NEGATIVE); SP GRAVITY URINE 1.003; TURBIDITY URINE CLEAR (CLEAR); UR EPITHELIAL CELLS <10 /HPF (<10); URINE BACTERIA NEGATIVE /HPF; URINE RBC <10 /HPF (<10); URINE WBC <10 /HPF (<10); UROBILINOGEN URINE NORMAL (NORMAL)
[2016-08-15] MEDS ORDERED: TAMBOCOR PO ONE (05:13)
[2016-08-15 05:37] LABS: ALLEN TEST YES; BE -0.7 mmoll (-3.0-3.0); BLOOD TYPE ARTERIAL; DRAW SITE R RADIAL; METHB 0.8 % (0.0-1.5); O2(CT) 14.3 mL/dL (15.0-23.0); PCO2(98.6) 33 mmHg (35-45); PO2(98.6) 153 mmHg (60-100); SAMPLE BLOOD; SAO2 99.6 % (95.0-100.0); THB 10.3 g/dL (11.5-17.4); pH(98.6) 7.45 (7.35-7.45)
[2016-08-15 05:38] LABS: MODALITY CANNULA
[2016-08-15] MEDS ORDERED: ZOFRAN IV PRN (06:04)
[2016-08-15] MEDS ORDERED: TYLENOL PO PRN (06:04)
[2016-08-15] MEDS ORDERED: LOPRESSOR PO ONE (06:04)
[2016-08-15] MEDS: NEXIUM IV SCH ×2 (06:35→17:41)
--- NOTE | 2016-08-15 06:48 | EKG Report ---
Test Performed on : 08/15/2016 03:20:48 AM Test Reason : chest pain Blood Pressure : / mmHG Vent. Rate : 129 BPM Atrial Rate : 129 BPM P-R Int : 160 ms QRS Dur : 100 ms QT Int : 318 ms P-R-T Axes : 003 172 073 degrees QTc Int : 465 ms Sinus tachycardia. Possible Left atrial enlargement Possible Lateral infarct , age undetermined Abnormal ECG When compared with ECG of 15-AUG-2016 00:59, (Unconfirmed) Left posterior fascicular block is no longer present Unconfirmed Result
--- NOTE | 2016-08-15 07:14 | Diag Imaging Result Doc PS360 ---
EXAM: ANGIOGRAM/PULMONARY ARTERIES HISTORY: cp, dyspnea TECHNIQUE: CT of the chest with intravenous contrast and dose reduction (clarity.) COMMENT: There are no pulmonary arterial filling defects. There are air-fluid levels in the esophagus. There is a right hilar mass extending into the mediastinum and abutting at least 180 degrees of the circumference of the adjacent esophagus. There is encasement of the right mainstem bronchus and bronchus intermedius. There is narrowing of the middle lobe bronchus. There is right paratracheal adenopathy. The pleural effusion which was present on 06/12/2016 has resolved. The right paratracheal adenopathy is stable. The irregular nodule peripherally in the right upper lobe on image 43 of the current study and image 65 of the previous examination is not significantly changed. The parahilar opacity present in the right middle lobe is more extensive than on the previous study. Involvement in the right lower lobe is essentially unchanged. There are some patchy groundglass opacities present in the left lower lobe and posterior left upper lobe which were not present previously and may represent pneumonia. IMPRESSION: No evidence of pulmonary emboli. Essentially stable neoplastic involvement of the right middle lobe and lower lobe, new left pneumonitis/pneumonia. The possibility of esophagitis, reflux, or aspiration cannot be excluded. Electronically signed by Charles Mccarthy 08/15/2016 7:12 AM
--- NOTE | 2016-08-15 07:48 | Diag Imaging Result Doc PS360 ---
EXAM: CHEST-PORTABLE INDICATION: fever, tachycardia TECHNIQUE: One view COMPARISON: 06/13/2016 FINDINGS: There is a known right hilar mass. It appears to be approximately stable. There is atelectasis and/or infiltrate in the adjacent right middle lobe that has developed during the interval suggesting postobstructive pneumonia or postobstructive atelectasis. Cardiac silhouette is stable. IMPRESSION: Small right middle lobe opacity adjacent to a known right hilar mass. Please see above discussion. Electronically signed by Richi Clayton 08/15/2016 7:46 AM
[2016-08-15] MEDS ORDERED: CARAFATE PO SCH (09:00)
[2016-08-15] MEDS: ELIQUIS PO SCH ×2 (09:50→21:22)
[2016-08-15] MEDS: CORTEF PO SCH ×2 (09:50→21:19)
[2016-08-15] MEDS: OXYCONTIN PO SCH ×2 (09:51→21:01)
[2016-08-15] MEDS: PAXIL PO SCH (09:51)
[2016-08-15] MEDS: TAMBOCOR PO SCH ×2 (09:52→23:25)
--- NOTE | 2016-08-15 10:41 | HISTORY AND PHYSICAL ---
CHIEF COMPLAINT: Chest pain and shortness of breath and dysphagia. HISTORY OF PRESENT ILLNESS: This is a 41-year-old, white male, unfortunate history of Hodgkin lymphoma, and then now he has had non small-cell lung cancer. He had SVC syndrome which had been stented. He came in today with chest pain and tachycardia. He states that his chest pain began this morning and 30 minutes prior to arrival pain increased with shortness of breath. He has a history of cancer in his lung, but he has also had poor fluid intake. He describes that he has difficulty swallowing and handling his secretions, which he has had previous issues with. In fact he had a barium swallow, but that was unremarkable. He is followed by Dr. Sotomayor; she scoped him actually it looks like back in May, and he had food impaction at that time. I do not think he has had any other procedures since then. Workup in the ER revealed tachycardia and there was an arrhythmia, which was felt to be possibly a supraventricular arrhythmia or junctional tachycardia. EKG I had looked like sinus tach. There were discernible P waves. He certainly could have abnormal issues there. He has had a history of I think paroxysmal atrial fibrillation or SVT as he is currently on flecainide. He does have reports of difficulty swallowing and even tolerating oral secretions, and he is certainly at risk for esophagitis associated with radiation. He has had issues before with that. Patient admitted for tachycardia. He does not have a white count or fever at this point. He does appear to be somewhat sleepy, but it was about 4:30 in the morning. The rest of his labs are unremarkable. PAST MEDICAL HISTORY: 1. Hodgkin lymphoma, in remission. 2. Non small-cell lung cancer. 3. SVC syndrome. 4. COPD. 5. Morbid obesity. 6. Hypertension. 7. Paroxysmal atrial fibrillation. 8. Esophageal stricture. 9. Esophagitis. 10. Gastritis. 11. Duodenitis. PAST SURGICAL HISTORY: 1. Lower back surgery. 2. Port placement. FAMILY HISTORY: Reviewed. Father had CAD at 54. SOCIAL HISTORY: , a very attentive . No tobacco or alcohol currently. ALLERGIES: He is very sensitive to pain medication with confusion. He is allergic to morphine, propoxyphene, tramadol in any case. CURRENT MEDICATIONS: 1. Eliquis. 2. Lunesta. 3. Flecainide at 50 b.i.d. 4. Lasix 20 mg every other day. 5. [place]. 6. Hydrocortisone 10 at night and 20 during the day. 7. Atrovent. 8. Ativan. 9. Melatonin. 10. Lopressor 100 daily. 11. Oxycodone. REVIEW OF SYSTEMS: Otherwise negative times a 10 point review of systems. PHYSICAL EXAMINATION: VITAL SIGNS: Blood pressure 120/70, heart rate of 122, respiratory 18, satting 96% on 3 L. Afebrile . GENERAL: Generally an obese male in mild distress. HEAD EXAM: Normocephalic, atraumatic. EYE EXAM: Pupils equal, round, reactive to light. Extraocular movements were intact. EAR/NOSE/THROAT EXAM: He had moist mucous membranes. NECK: Exam was supple. CARDIOVASCULAR EXAM: Tachy. PULMONARY: Bilateral breath sounds. Clear to auscultation. GI: Soft, nontender, nondistended. Bowel sounds were positive. He had slight deformation of his anterior chest cavity. NEUROLOGIC: Nonfocal. LABORATORY/X-RAY DATA: Basic was normal. BUN and creatinine 7 and 1.1. White count 2.8, hemoglobin and hematocrit 11 and 34, platelets 278. Urine was clear. Chest x-ray was clear. EKG again showed sinus tach. ASSESSMENT: A 41-year-old male presenting with dyspnea, tachycardia and dysphagia: 1. Cardiovascular tachycardia. I am not sure if this is obviously reactive to another process. It could be pain. Because of his cancer history, I think we have to rule out pulmonary embolus, so we will progress with a computed tomography angiography and follow, although he is already on Apixaban and I believe has been compliant. We will resume his flecainide and metoprolol and get a cardiology consult to evaluate for any other arrhythmia issues. 2. Dysphagia. He may have erosive esophagitis again. Will start Nexium. Follow hemoglobin and hematocrit, make nothing by mouth, and consult Dr. Sotomayor for evaluation for endoscopy once he is a little bit more stable. 3. Lung cancer. Known diagnosis with superior vena cava syndrome. We will continue to monitor. I am going to go ahead and get Dr. Iqbal involved; she has seen him in the past. 4. Chronic pain issues associated with cancer, superior vena cava syndrome. We will continue pain medication and follow very closely because of tenuous respiratory status. cc: MD Sera Bartlett MD
[2016-08-15] MEDS ORDERED: XYLOCAINE-MPF 2% ONE (11:37)
[2016-08-15] MEDS ORDERED: DIPRIVAN 1% ONE ×3 (11:37→13:06)
[2016-08-15] MEDS ORDERED: ZOFRAN ONE (11:37)
[2016-08-15] MEDS ORDERED: ROBINUL ONE ×2 (11:37→12:20)
[2016-08-15] MEDS ORDERED: FENTANYL ONE (11:38)
[2016-08-15] MEDS ORDERED: PEPCID ONE (12:07)
[2016-08-15] MEDS ORDERED: QUELICIN (DOSE) ONE (12:19)
--- NOTE | 2016-08-15 12:30 | EKG Report ---
Test Performed on : 08/15/2016 00:59:23 AM Test Reason : SOB Blood Pressure : / mmHG Vent. Rate : 141 BPM Atrial Rate : 141 BPM P-R Int : 144 ms QRS Dur : 098 ms QT Int : 328 ms P-R-T Axes : 000 124 063 degrees QTc Int : 502 ms Sinus tachycardia. Left posterior fascicular block Abnormal ECG When compared with ECG of 14-JUN-2016 00:32, [place] interval has decreased Vent. rate has increased BY 51 BPM Left posterior fascicular block is now present T wave inversion no longer evident in Anterior leads Unconfirmed Result
[2016-08-15] MEDS ORDERED: VERSED ONE ×2 (12:51→12:54)
[2016-08-15] MEDS ORDERED: PHENERGAN IV PRN (14:38)
[2016-08-15] MEDS ORDERED: SODIUM CHLORIDE 0.9% INJ PRN (14:38)
--- NOTE | 2016-08-15 15:46 | OPERATIVE NOTE ---
PROCEDURE DATE: 08/15/2016 REFERRING PHYSICIAN: Lenin Chi MD. PRIMARY PROVIDER: Sera Iqbal MD. INDICATION FOR PROCEDURE: Dysphagia. PROCEDURE PERFORMED: Esophagogastroduodenoscopy with dilation. CONSENT: Informed consent was obtained from the patient prior to the procedure. The risks, benefits, and alternatives were discussed. MEDICATION: General anesthesia was attempted. However, the patient was unable to be successfully intubated even with the assistance of the fiberoptic scope. Therefore, monitored anesthesia was administered. PERFORMING PHYSICIAN: Edie Sotomayor MD. ASSISTANTS: 1. Nela Benitez RN. 2. Juan Carlos Newman RN. 3. Henny Pizarro CRNA. 4. Bing Amador CRNA. 5. Rodrigo Wong MD (Anesthesia). COMPLICATIONS: There were no complications. ESTIMATED BLOOD LOSS: Less than 1 mL. SPECIMENS REMOVED: None. FINDINGS: After sedation was achieved, the upper endoscope was inserted to the 2nd portion of the duodenum. The hypopharynx appeared normal. In the upper esophagus, there were whitish plaques consistent with early Peggy esophagitis. There was a stricture in the mid esophagus. Gastric contents were visualized refluxing to the upper esophagus. There was a stricture at 30 cm. It required moderate resistance with the scope in order to pass the stricture. There was evidence of reflux esophagitis from 30-35 cm. There was a possible tongue of Demarco's esophagus from 34-35 cm. There was a nonobstructing Schatzki's ring at 35 cm. There was no evidence of esophageal varices. There was a hiatal hernia that spanned from 35-45 cm. In the gastric lumen, there was erosive gastritis in the antrum, fundus, and body. In the fundus, there were retained secretions that were evacuated. There were multiple gastric polyps in the antrum, fundus, and body. The pylorus appeared normal and was patent. There was mild duodenitis in the duodenal bulb. The second portion of the duodenum and the ampulla appeared grossly normal. After the exam was complete, the scope was retracted into the gastric lumen. There was a guidewire placed through the scope and the scope was removed per os. Using the guidewire, the esophagus was dilated with a Savary dilator 39- and 42-[place]. Each dilator was passed x1. We attempted to dilate the 48- [place]. However, there was significant resistance met and the attempt to dilate the 48-[place]an was as the patient remains on his anticoagulation. Second look endoscopy confirmed minimal heme in the distal esophagus and at the midesophageal stricture. There was no evidence of mucosal tears or perforation. There was no evidence of active bleeding. The lumen was decompressed and the scope was removed without incident. IMPRESSION: 1. Early Peggy esophagitis. 2. Visible esophageal reflux. 3. Esophageal stricture at 30 cm. 4. Grade C erosive esophagitis. 5. Possible Demarco's esophagus at 34-35 cm. 6. Schatzki's ring at 35 cm. 7. Hiatal hernia 35-45 cm. 8. Erosive gastritis in the antrum, fundus, and body. 9. Multiple gastric polyps. 10. Duodenitis limited to the duodenal bulb. RECOMMENDATION: 1. I will place the patient on a liquid diet at this time. I would advance to soft foods over the next 24-48 hours. 2. Begin Diflucan 200 mg IV today followed by 100 mg daily for 20 days. Once he is able to tolerate his diet, I would transition this to oral therapy. 3. He will most likely need a repeat EGD in 6-8 weeks. I will discuss with Dr. Iqbal performing the dilation off anticoagulation. 4. Continue Nexium IV while he is an inpatient. And switch to oral Nexium at home. 5. Continue oral Carafate 4 times a day. Please note, the patient was only taking the Carafate once a day at home. 6. Because he is receiving Diflucan, we will need to discontinue the Zofran and switch to Phenergan due to potential drug interactions and cardiac toxicity. 7. He will need an awake fiberoptic assisted intubation for all future procedures per Dr. Rodrigo Wong. 8. We will have the patient return to clinic 4 weeks after hospital discharge. 9. Additional recommendations to follow based on his clinical course. cc: MD Hakeem Quick MD Heather Shah, MD
[2016-08-15] MEDS ORDERED: DIFLUCAN 200 MG/NS 200 MG/100 ML IVPB IV ONE (16:00)
[2016-08-15] MEDS: CARAFATE LIQUID PO SCH ×2 (16:01→21:20)
--- NOTE | 2016-08-15 16:20 | CONSULTATION ---
DATE OF CONSULTATION: 08/15/2016 REFERRING PHYSICIAN: Dr. Hakeem Chi. PRIMARY PROVIDER: Dr. Sera Iqbal. INDICATION FOR CONSULTATION: Dysphagia. HISTORY OF PRESENT ILLNESS: The patient is a 41-year-old white male who is well known to our service. He has longstanding GERD, an esophageal stricture post radiation for [id number] lung cancer and Hodgkin lymphoma as well as recurrent food impactions. He presents with dysphagia and shortness of breath. We were asked to perform endoscopic evaluation. PAST MEDICAL HISTORY: 1. [id number] CA of the lung. 2. Hodgkin lymphoma. 3. Morbid obesity. 4. SVC syndrome. 5. COPD. 6. Paroxysmal atrial fibrillation. 7. Known esophageal stricture. 8. Known GERD. 9. History of reflux esophagitis. 10. Recurrent food impactions x4 requiring endoscopic removal, and food impaction x2 that passed after an extended period of time with cough and self-induced emesis. 11. Congestive heart failure. 12. Aspiration pneumonia. 13. History of peptic ulcer disease. PAST SURGICAL HISTORY: 1. Back surgery. 2. Port placement. 3. Multiple lung biopsies. FAMILY HISTORY: Remarkable in that his father had premature coronary artery disease at 54 years of age. SOCIAL HISTORY: Remarkable in that he previously drank heavily, used marijuana, cocaine, and crack. 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 CURRENT MEDICATIONS: Please see [facility]. The list was personally reviewed. MEDICATION ALLERGIES: 1. Ultram. 2. IV pain medicines. 3. Morphine. 4. Darvocet. REVIEW OF SYSTEMS: Remarkable for severe dysphagia and heartburn. PHYSICAL EXAMINATION: Vital Signs: Blood pressure is 119/71, pulse 104, respirations 20, temperature of 97.9 degrees. HEENT: Reveals a Mallampati score of 3-4. His mucosa is unremarkable. His conjunctivae are pale and his sclerae are anicteric. Cardiovascular: He has a resting tachycardia with no gallops or rubs. Pulmonary: Lungs are clear anteriorly with decreased breath sounds in the bases posteriorly. Abdominal: Reveals normoactive bowel sounds. The abdomen is soft and nontender, with central adiposity. There is no rebound or guarding. Neurologic: He is awake and alert with the appropriate mood and affect. Musculoskeletal: Unremarkable. OBJECTIVE DATA: Remarkable for labs in [facility] that were personally reviewed. IMPRESSIONS: 1. Dysphagia. 2. History of esophageal stricture. 3. Recurrent food impactions. 4. Patient has a history of being noncompliant with his proton pump inhibitor therapy and Carafate. 5. Patient has a history of noncompliance with dietary modifications to prevent recurrent food impactions. RECOMMENDATION: 1. I will perform an EGD with possible dilation today. 2. Continues his IV Nexium. 3. We will resume his oral Carafate post endoscopy. cc: MD Hakeem Quick MD Heather Shah, MD
--- NOTE | 2016-08-15 16:54 | CONSULTATION ---
DATE OF CONSULTATION: 08/15/2016 REQUESTING PHYSICIAN: Dr. Chi. REASON FOR CONSULTATION: Lung cancer, patient known to us. HISTORY OF PRESENT ILLNESS: Mr. 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 Workup revealed the patient to have tachycardia with arrhythmia. The patient was also complaining of dysphagia, with poor fluid intake recently. He has been having difficulty swallowing and handling his secretions. Patient has been admitted for further assessment and workup. PAST MEDICAL HISTORY: 1. Hodgkin lymphoma, in remission. 2. Non-small cell lung cancer, undergoing treatment currently. 3. SVC syndrome, status post stent, on Eliquis. 4. COPD. 5. Morbid obesity. 6. Hypertension. 7. Paroxysmal atrial fibrillation. 8. Esophageal stricture. 9. Esophagitis. 10. Gastritis. 11. Duodenitis. PAST SURGICAL HISTORY: 1. Low back pain. 2. Status post port placement. FAMILY HISTORY: Positive for her father who of coronary artery disease at age 54. SOCIAL HISTORY: The patient is currently . He denies any tobacco or alcohol use currently. REVIEW OF SYSTEMS: Ten point review of systems has been completed and is negative except for what was expressed in the history of present illness. PHYSICAL EXAMINATION: Vital Signs: Temperature 97.9 degrees, heart rate 118, respirations 18, blood pressure 102/62, O2 saturation 98% on 3 L nasal cannula. General: male lying in hospital bed. He appears in some distress secondary to pain and anxiety. and then 2 friends are at bedside. HEENT: Head normocephalic and atraumatic. Eyes: Pupils appear to be equal, round and reactive. Ears, nose, throat, neck and mouth: Oral mucosa appears to be normal. Trachea midline. Gross auditory acuity is intact. Cardiovascular: S1-S2 heard. Tachycardia appreciated. Respiratory: Chest was essentially clear to auscultation bilaterally. Normal respiratory effort. Gastrointestinal: Abdomen is obese. Positive bowel sounds. Nontender, nondistended. Musculoskeletal: No obvious bony abnormalities. Extremities: Some trace bilateral extremity edema. LABS AND STUDIES: White blood cells 2.89, hemoglobin 11.7, hematocrit 34.9, platelets 278,000. Sodium 139, potassium 3.9, chloride 100, CO2 22, BUN 7, creatinine 1.1. Glucose 102. Pulmonary arteriogram shows no evidence of pulmonary emboli. Essentially stable neoplastic involvement of the right middle lobe and lower lobe, new left pneumonitis pneumonia. The possibility of esophagitis, reflux or aspiration cannot be excluded. ASSESSMENT AND PLAN: 1. Recurrent non-small cell lung cancer. Patient is currently receiving Navelbine treatment. His last treatment dose was on 08/09/2016. He is due for treatment tomorrow on 08/16/2016. Treatment will be held during his acute illness. 2. Tachycardia. Possibly supraventricular arrhythmia or junctional tachycardia. Management per Cardiology. 3. Dysphagia. Patient was actually being taken for EGD for further evaluation when I saw him. Follow up Dr. Sotomayor's recommendations. 4. 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 Continue Eliquis. 5. Pain associated with his cancer. Patient should continue current pain medications. Adjust as needed. Thank you for consulting us on Mr. Greenberg. We will continue to follow along and adjust our treatment plan per his hospital course. Dictated by SUKHI Sutherland for Sera Iqbal MD cc: Sera Iqbal MD
[2016-08-15] MEDS: NUBAIN IV PRN ×2 (17:41→23:25)
[2016-08-15] MEDS ORDERED: LOPRESSOR PO SCH (19:00)
--- NOTE | 2016-08-15 19:59 | CONSULTATION ---
DATE OF CONSULTATION: 08/15/2016 REASON FOR CONSULTATION: Evaluation of chest pain, tachycardia. HISTORY: Mr. 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 He presented to the hospital for evaluation because for the past several days he has been having increasing pain in the center of the chest worsened by breathing, pleuritic in nature, associated with inability to swallow to the point where on the day of admission he was just not able to swallow his own saliva. They did a CT scan of the chest early this morning upon presentation that shows no evidence of pulmonary emboli, essentially stable neoplastic involvement of the right middle lobe and lower lobe, with new left pneumonitis, pneumonia, esophageal reflux, possibility of esophagitis, aspiration cannot be excluded. The patient was taken by Dr. Sotomayor to the GI Lab and she performed an upper endoscopy and performed dilatation of the esophagus. 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 She recommended to begin Diflucan, liquid diet, IV Nexium, and oral Carafate. The patient is being seen after that procedure. He does have evidence of sinus tachycardia. He has not had any other additional arrhythmias. PAST MEDICAL HISTORY: His past history is positive for prior history of Hodgkin's lymphoma treated with chemotherapy and radiation. About a year ago or so he was found to have non small cell carcinoma of the right lung and has been treated with additional radiation therapy and chemotherapy. About 2 months ago he developed superior vena cava syndrome and had to be sent to [facility] for insertion of a stent to deal with the superior vena cava syndrome. That was done about 2 months ago. The patient has been followed by Cardiology at [facility] because of atrial arrhythmia, presumably atrial flutter. At some point they proposed to do direct current cardioversion and transesophageal echo, although I cannot find any report of confirmation of that procedure. The patient had a previous CT angiogram of the coronary arteries according to records that showed no evidence of any significant obstructive lesion. [facility] because of chronic diastolic heart failure. His ejection fraction is normal. He also has sleep apnea syndrome. PAST SURGICAL HISTORY: Positive for back surgery and the aforementioned biopsies of the lung which yielded the finding of non small cell carcinoma. HOME MEDICATIONS: His home medications at this time are: 1. Sucralfate. 2. Paroxetine 20 mg daily. 3. Oxycodone 15 twice a day. 4. Omeprazole 40 daily. 5. Metoprolol 100 daily. 6. Melatonin 5 mg at bedtime. 7. Lorazepam 1 mg at bedtime. 8. Furosemide (Lasix) 20 as ordered. 9. Flecainide 50 mg twice a day. 10.Lunesta 30 mg at bedtime. 11.Apixaban 1 tablet of 5 mg twice a day. ALLERGIES: He is allergic to morphine, propoxyphene, tramadol, and IV pain medicines. REVIEW OF SYSTEMS: He has been going downhill for the past few weeks, getting increasingly short of breath, getting swelling of the neck, face and arms. This improved after deployment of the stent to the superior vena cava. He has had issues with progressive dysphagia from soft food to liquids and even saliva. This has improved now after Dr. Sotomayor has performed stretching of the esophagus. No other significant past history. PHYSICAL EXAMINATION: Vital signs: Pulse is about 110. Temperature 98.4. Respirations 16. Blood pressure 160/85. General: He is awake, alert, follows commands. HEENT: Unremarkable. Chest: Clear to auscultation and percussion. Skin: He does have some swelling of the face. He does have a full cerda face probably secondary to long-term use of steroids, although a component of superior vena cava may be still present. Upper extremities are somewhat prominent. They may be slightly edematous. Neck: I cannot assess his neck veins. I do not hear bruits. Cardiovascular: His heart sounds are regular and rhythmic, tachycardic. I do not hear any gallop or murmur. Abdomen: Obese, distended. No hepatomegaly is palpated. Extremities: Show good distal pulses. No obvious edema in the feet. The patient is obese. He weighs 307 pounds. Body mass index is 42. LABORATORY DATA: White cell count is 2090, hemoglobin 11.7, hematocrit 34.9. Sodium 139, potassium 3.9, BUN 7, creatinine 1.1. Chest x-ray reported today showed small right middle lobe opacity adjacent to a known right hilar mass. There is an EKG done today that shows sinus tachycardia, no flutter or fibrillation is noted. IMPRESSION: 1. Patient presenting with severe chest pain secondary to malignant lesion in the lung and mediastinum. 2. Sinus tachycardia. I do not see evidence of recurrence of atrial flutter or fibrillation. 3. Morbidly obese. 4. Remote history of Hodgkin's lymphoma. 5. No history of coronary artery disease in this patient with a negative CT of the coronary arteries about a year ago. RECOMMENDATIONS: From a cardiology viewpoint really there is very little to do other than asking him to resume his medications by mouth. I would probably keep him hydrated and discuss with Oncology and the primary service further intervention to deal with his malignancy and sequelae of his lesions in the mediastinum. I would request an echocardiogram just to make sure that there is no active invasion of the right atrium although that did not appear to be noticeable on the CT scan done today. Further advice will be forthcoming. Thank you for the opportunity to participate in his evaluation. cc: Saad Boyd MD
[2016-08-15] MEDS ORDERED: ATIVAN PO SCH (21:00)
[2016-08-15] MEDS: SODIUM CHLORIDE 0.9% INJ SCH (21:07)
[2016-08-15] MEDS: LOPRESSOR IV SCH (21:07)
[2016-08-15] MEDS: ATIVAN IV SCH (21:19)
[2016-08-15] MEDS: AMBIEN PO SCH (21:19)
[2016-08-15] MEDS: MELATONIN PO SCH (21:21)
[2016-08-16] MEDS: HYDROCODONE/APAP 7.5-325/15 ML PO PRN ×4 (01:20→21:44)
[2016-08-16] MEDS: LOPRESSOR IV SCH ×4 (03:34→20:19)
[2016-08-16] MEDS: NUBAIN IV PRN ×2 (03:34→14:22)
[2016-08-16] MEDS: CARAFATE LIQUID PO SCH ×4 (03:35→20:19)
[2016-08-16 05:01] LABS: MANUAL DIFF NEEDED? NO
[2016-08-16 05:04] LABS: BASO% 0.8 % (0.0-0.8); EOS# 0.07 X1000 (0.0-0.7); EOS% 2.9 % (0.0-10.0); HEMATOCRIT 31.1 % (42.0-52.0); HEMOGLOBIN 10.1 g/dL (14.0-18.0); LYMPH# 0.83 X1000 (1.2-3.4); LYMPH% 34.3 % (20.5-51.1); MCH 28.7 PG (27-31); MCHC 32.5 g/dL (33-37); MCV 88.4 FL (81-99); MONO# 0.39 X1000 (0.11-0.59); MONO% 16.1 % (1.7-9.3); MPV 8.9 FL (7.4-10.4); NEUT% 45.9 % (42.2-75.2); PLT 251 X1000 (130-400); RBC 3.52 XMIL (4.7-6.1)
[2016-08-16 05:31] LABS: AGAP 11; BUN 8 mg/dL (8-22); CALCIUM 8.7 mg/dL (8.8-10.2); CHLORIDE 102 mmol/L (98-107); COSMO 277; POTASSIUM 4.1 mmol/L (3.5-5.1); SODIUM 139 mmol/L (136-145); TCO2 26 mmol/L (25-35)
[2016-08-16] MEDS: NEXIUM IV SCH ×2 (06:28→17:43)
[2016-08-16] MEDS ORDERED: LOPRESSOR PO SCH (09:00)
[2016-08-16] MEDS: PAXIL PO SCH (09:41)
[2016-08-16] MEDS: CORTEF PO SCH ×2 (09:41→20:20)
[2016-08-16] MEDS: OXYCONTIN PO SCH ×2 (09:41→20:19)
[2016-08-16] MEDS: ELIQUIS PO SCH ×2 (09:42→20:19)
[2016-08-16] MEDS: TAMBOCOR PO SCH ×2 (09:42→20:19)
--- NOTE | 2016-08-16 10:02 | PROGRESS NOTE ---
DATE: 08/16/2016 SUBJECTIVE: On morning rounds, I went to see the patient. He was off the floor for testing. According to his , since the dilation, he has been able to tolerate a clear liquid diet and take his medications without difficulty. His only concern is his diffuse pain syndrome, which is inadequately treated. Therefore, I recommend continuing a clear liquid diet. If he continues to tolerate the diet today, I would advance his diet as tolerated to a GI soft diet over the next few days. He will need a repeat dilation in 4-6 weeks, after he completes his treatment for Peggy esophagitis. cc: MD Sera Quick MD Omar J. Sosa-Chirinos, MD
--- NOTE | 2016-08-16 11:10 | PROGRESS NOTE ---
DATE: 08/16/2016 SUBJECTIVE: This patient states that he is feeling better, but he is having some diffuse chest pain, pressure-like. He had a procedure done yesterday, upper endoscopy with dilation. Probably this pain is related with this procedure. He is tolerating liquid diet and probably we will advance the diet to a soft GI diet tomorrow if he continues to improve. He denies nausea, vomiting, diarrhea, constipation. No shortness of breath. OBJECTIVE: Vital Signs: Temperature 97.6 degrees, pulse 114, respiratory rate 18, blood pressure 105/68, oxygen saturation 91 on 3 L of nasal cannula. HEENT: Head normocephalic. No trauma. PERRLA. Neck: Supple. No JVD. No masses. Central trachea. Chest: Decreased breath sounds at the bases. He has two scars in the middle of the chest from previous lung biopsies and one small scar at the level of the left upper thorax that was secondary to a Port-A-Cath that was removed already. Abdomen: Soft, obese, protuberant. Positive bowel sounds. Cardiovascular: RRR. No murmurs. Extremities: No edema. No clubbing. No cyanosis. Neurological examination: The patient is alert and oriented x3. No focal deficits. General: This patient has some swelling on his face probably secondary to long-term use of steroids. LABORATORY: WBC 2.4, hemoglobin 10.1, hematocrit 31.1, platelet 251. Sodium 139, potassium 4.1, chloride 102, bicarbonate 26, BUN 8, creatinine 1.1, glucose 113, calcium 8.7. ASSESSMENT AND PLAN: 1. Non small-cell lung cancer. Hematology/oncology is following this patient closely. He is not getting treatment at this moment because of his acute illness. Will monitor. 2. Hodgkin lymphoma, in remission. 3. Tachycardia. This patient has no complaint of palpitation. Cardiology is on board. We will continue to monitor. 4. Dysphagia. The patient had an esophagogastroduodenoscopy done yesterday that showed early Peggy esophagitis, visible esophageal reflux, esophageal stricture at 30 cm, grade C erosive esophagitis, possible Demarco's esophagus, Schatzki ring at 35 cm, hiatal hernia, erosive gastritis in the antrum and fundus and body, multiple gastric polyps, duodenitis limited to the duodenal bulb. At this moment this patient is tolerating liquid diet. Probably we will advance the diet in the next 24 hours. We will follow the recommendation of Gastroenterology Department. This patient has been complaining of mild chest discomfort. I will increase his dose of oxycodone. 5. Superior vena cava syndrome status post stenting. Continue with anticoagulation with Eliquis. 6. Chest pain. This is likely secondary to his cancer. I increased the dose of his oxycodone from 50 twice daily to 20 twice daily, and I will continue to monitor. CRITICAL CARE TIME: 35 minutes. cc: Donald Saldivar MD
[2016-08-16] MEDS ORDERED: DIFLUCAN 100 MG/NS 100 MG/50 ML IVPB IV SCH (16:00)
--- NOTE | 2016-08-16 16:34 | PROGRESS NOTE ---
DATE: 08/16/2016 SUBJECTIVE: Mr. Greenberg reports that he is feeling better today. He is actually eating a hamburger and [place] fries as I entered the room. OBJECTIVE: Vital Signs: Temperature 97.6 degrees, heart rate 114, respirations 18, blood pressure 105/68. O2 saturation 91% on 3 L nasal cannula. Cardiovascular: S1-S2 heard. No murmurs, gallops, rubs appreciated. Respiratory: Chest essentially clear to auscultation bilaterally with normal respiratory effort. Gastrointestinal: Abdomen is obese. Positive bowel sounds. Nontender. Nondistended. Extremities: Patient has trace bilateral lower extremity edema. LABORATORY: White blood cells 2.42, hemoglobin 10.1, hematocrit 31.4, platelet count 251,000. Sodium 139, potassium 4.1, chloride 102, CO2 26, BUN 8, creatinine 1.1, glucose 113. ASSESSMENT AND PLAN: 1. Recurrent non-small cell lung cancer. Treatment is currently on hold. The patient will follow up with us as outpatient for further evaluation prior to resuming any therapy. 2. Dysphagia. Patient is status post esophagogastroduodenoscopy with Dr. Sotomayor. Improvement in swallowing. Continue management as per Dr. Sotomayor. 3. Tachycardia. Per Cardiology. 4. Superior vena cava syndrome. This appears to be stable. He is status post stenting. Continue Eliquis. 5. Pain associated with his cancer. Improving per the patient's report. Medications have been adjusted. 6. Disposition. From our standpoint, the patient can go home and follow up with us once he is out. This will depend on when the primary and the other consultants feel the patient is ready to be discharged. We will contact the patient and set him up for an appointment once he is discharged. Dictated by SUKHI Sutherland for Sera Iqbal MD cc: Sera Iqbal MD
[2016-08-16] MEDS: SODIUM CHLORIDE 0.9% INJ SCH (17:43)
--- NOTE | 2016-08-16 18:39 | ECHO REPORT ---
ORDER DATE: 08/16/2016 INTERPRETING PHYSICIAN: Dr. Boyd REQUESTING PHYSICIAN: CLINICAL INDICATIONS: Chest pain, tachycardia. STUDY: Echo with contrast, Definity injection. M-MODE MEASUREMENTS: Right ventricle: 3.4 cm. Left ventricle end diastole: 4.5 cm. Left ventricle end systole: 2.8 cm. Posterior wall: 1.0 cm. Interventricular septum: 1.1 cm. Left atrium: 3.1 cm. Aortic root: 3.4 cm. SUMMARY OF 2-DIMENSIONAL IMAGING: The left ventricular function appears to be normal. Ejection fraction estimated at 65-70%. No definite wall motion abnormality is noted. The right ventricle appears to be moderately enlarged. The left atrium appears to be normal. The right atrium is suboptimally visualized. I do not see evidence of pericardial effusion. The aortic valve appears to be grossly normal. The pulmonic valve also appears to be grossly normal. Color flow mapping indicates a mild degree of right. Pulmonary diastolic pressure estimated to be in the range of 20-25 mmHg. The tricuspid valve shows a moderate degree of regurgitation. Pulmonary systolic pressure estimated to be in the range of 68-73 mmHg. The mitral valve looks normal. Color flow mapping indicates a mild degree of regurgitation. Pulse wave Doppler of mitral inflow shows normal E/A ratio. Tissue Doppler of septal and lateral mitral annulus averages 12 cm per second. There is no diastolic dysfunction. There is no evidence of masses. No thrombus. IMPRESSION: In summary, echocardiographic study with Definity shows: 1. Normal left ventricular systolic function. 2. Normal valvular structures with moderate degree of tricuspid regurgitation. 3. Pulmonary pressure estimated at 73/25 mmHg. There is [id number] enlargement of the right ventricle. Clinical correlation recommended. cc: Saad Boyd MD
[2016-08-16] MEDS: ATIVAN IV SCH (20:19)
[2016-08-16] MEDS: MELATONIN PO SCH (20:19)
[2016-08-16] MEDS: AMBIEN PO SCH (20:20)
[2016-08-17] MEDS: NUBAIN IV PRN ×2 (00:25→04:41)
[2016-08-17] MEDS: CARAFATE LIQUID PO SCH ×2 (02:24→09:39)
[2016-08-17] MEDS: HYDROCODONE/APAP 7.5-325/15 ML PO PRN ×2 (02:27→06:10)
[2016-08-17] MEDS: LOPRESSOR IV SCH ×2 (02:27→09:39)
[2016-08-17 07:03] LABS: BASO% 0.5 % (0.0-0.8); EOS# 0.05 X1000 (0.0-0.7); EOS% 2.7 % (0.0-10.0); HEMATOCRIT 29.9 % (42.0-52.0); HEMOGLOBIN 9.7 g/dL (14.0-18.0); IMM GRAN# 0.05 X1000 (0.0-0.04); IMM GRAN% 2.7 % (0.0-0.5); LYMPH# 0.67 X1000 (1.2-3.4); LYMPH% 36.6 % (20.5-51.1); MANUAL DIFF NEEDED? YES; MCH 28.5 PG (27-31); MCHC 32.4 g/dL (33-37); MCV 87.9 FL (81-99); MONO# 0.27 X1000 (0.11-0.59); MONO% 14.8 % (1.7-9.3); NEUT% 42.7 % (42.2-75.2); PLT 237 X1000 (130-400)
[2016-08-17 07:33] VITALS: BP 136/75
[2016-08-17 07:34] LABS: BANDS 6 % (0-1); EOS 4 % (1-10); LYMPHS 28 % (21-51); MONO 6 % (1-9)
[2016-08-17 07:36] LABS: AGAP 12; BUN 7 mg/dL (8-22); CALCIUM 8.9 mg/dL (8.8-10.2); CHLORIDE 103 mmol/L (98-107); COSMO 280; POTASSIUM 3.8 mmol/L (3.5-5.1); SODIUM 141 mmol/L (136-145); TCO2 26 mmol/L (25-35)
[2016-08-17] MEDS: ELIQUIS PO SCH (09:40)
[2016-08-17] MEDS: CORTEF PO SCH (09:40)
[2016-08-17] MEDS: TAMBOCOR PO SCH (09:41)
[2016-08-17] MEDS: PAXIL PO SCH (09:41)
[2016-08-17] MEDS: OXYCONTIN PO SCH (09:49)
[2016-08-18] MEDS ORDERED: PRILOSEC PO SCH (07:00)
[2016-08-18] MEDS ORDERED: DIFLUCAN PO SCH (09:00)
--- NOTE | 2016-08-18 11:58 | DISCHARGE SUMMARY ---
ADMISSION DATE: 08/15/2016 DISCHARGE DATE: 08/17/2016 CONSULTATIONS: 1. Dr. Boyd with cardiology. 2. Dr. Sera Iqbal with hematology/oncology. PERTINENT PROCEDURE: 1. Pulmonary arteriogram showed no evidence EP, essentially stable, and neoplastic involvement of the right middle lobe and lower lobe, new left pneumonitis pneumonia, possibility of esophagitis reflux or aspiration cannot be excluded. 2. EGD with dilatation performed by Dr. Sotomayor. 3. Echocardiogram showed an EF of 65% to 70% with no wall motion abnormality. DISCHARGE DIAGNOSES: 1. Recurrent non small cell lung cancer. Treatment currently on hold. Will follow up as outpatient to review for further evaluation for resuming therapy. 2. Dysphagia status post esophagogastroduodenoscopy with dilatation performed by Dr. Sotomayor. 3. Tachycardia followed by cardiology. Patient is to resume home medications. He did have a normal echocardiogram. No evidence of atrial fibrillation or atrial flutter. 4. Hodgkin lymphoma in remission. 5. Severe superior vena cava syndrome status post stenting. Continue anticoagulation with Eliquis. 6. Chest pain secondary to lung cancer. Continue with pain management. HOSPITAL COURSE: Briefly, Mr. Greenberg is a 41-year-old gentleman, who carries a past medical history of Hodgkin lymphoma now in remission. He now has a recurrent non small cell lung cancer, SVC syndrome which he has had stented. He came in with chest pain and tachycardia. His chest pain began on the morning of his admission 30 minutes prior to his arrival. His pain increased with shortness of breath. He has a history of cancer in the lung. He also has poor p.o. intake. He also described difficulty swallowing and handling his own secretions, for which he has had previous issues with this. He is followed by Dr. Sotomayor who did a scope on him back in May for food impaction at that time. Workup in the ED revealed tachycardia. He underwent a pulmonary arteriogram that ruled out pulmonary embolism. Dr. Sotomayor was consulted for his dysphagia. He underwent an EGD with dilatation. She wants him to begin Diflucan, as well as continue his home Nexium and Carafate, and to follow up with her in 6-[address] Sera Iqbal was also consulted to see the patient. Cardiology was also consulted for the patient's tachycardia. He underwent a normal echo. Dr. Boyd suggested to resume the patient's home medications and keep him hydrated. He is being discharged home today. He is tolerating a liquid diet and is being advanced to a GI soft diet. He continues to improve. He will follow up with Dr. Sera Iqbal for further outpatient treatment. VITAL SIGNS: Temperature is 97.8 degrees, heart rate 111, respirations 22, blood pressure is 136/75, O2 is 94% on room air. DISCHARGE DIET: GI soft. DISCHARGE MEDICATIONS: As per Dr. Pierce: 1. Tylenol 650 mg p.o. q. 6 hours p.r.n. 2. Eliquis 5 mg p.o. b.i.d. 3. Nexium 40 mg p.o. daily. 4. Lunesta 3 mg p.o. at bedtime. 5. Tambocor 50 mg p.o. b.i.d. 6. Diflucan 100 mg p.o. daily. 7. Lasix 20 mg p.o. as ordered. 8. Virgil 7.5/325, two p.o. p.r.n. 9. Cortef 10 mg p.o. at bedtime. 10. Cortef 20 mg p.o. daily. 11. Combivent rescue inhaler, 1 puff inhaled p.r.n. 12. Ativan 1 mg p.o. at bedtime. 13. Melatonin 5 mg p.o. at bedtime. 14. Lopressor 100 mg p.o. q.a.m. 15. Prilosec 40 mg p.o. daily. 16. OxyContin 20 mg p.o. b.i.d. 17. Paxil 20 mg p.o. daily. 18. Carafate 1 g p.o. four times a day. FOLLOWUP: The patient is being discharged home with his . Per the , patient currently uses a BiPAP at home and palliative care. To check on the patient monthly. He is to continue to follow up with Dr. Sotomayor, as well as return to see Dr. Iqbal for further outpatient treatment. The patient can return to the ED for any worsening of symptoms. DISCHARGE TIME: 30 minutes. Dictated by CRISTOBAL Barreto for Donald Saldivar MD cc: MD Sera Aggarwal MD Jeanette Keith, MD
== END 2016-08-17 11:36 | disposition home or self-care (01) ==
LOC: ED 01:06 → SUATTDRO 05:25 → 3S 05:25 → 3N 08-16 23:36
PROVIDERS: ATTEND Internal Medicine

== ENCOUNTER 2016-08-19 12:16 | Inpatient (IN) ==
[2016-08-19] MEDS ORDERED: NS 1,000 ML ONE (12:59)
[2016-08-19] MEDS ORDERED: NS 1,000 ML IV ONE ×2 (13:07→15:42)
[2016-08-19 13:31] LABS: MANUAL DIFF NEEDED? NO
[2016-08-19 13:34] LABS: BASO% 0.8 % (0.0-0.8); EOS# 0.01 X1000 (0.0-0.7); EOS% 0.3 % (0.0-10.0); HEMATOCRIT 30.3 % (42.0-52.0); HEMOGLOBIN 9.6 g/dL (14.0-18.0); IMM GRAN# 0.11 X1000 (0.0-0.04); IMM GRAN% 2.8 % (0.0-0.5); LYMPH% 17.7 % (20.5-51.1); MCH 28.4 PG (27-31); MCHC 31.7 g/dL (33-37); MCV 89.6 FL (81-99); MONO# 0.62 X1000 (0.11-0.59); MONO% 15.7 % (1.7-9.3); MPV 10.2 FL (7.4-10.4); NEUT% 62.7 % (42.2-75.2); PLT 367 X1000 (130-400); RBC 3.38 XMIL (4.7-6.1)
--- NOTE | 2016-08-19 13:46 | Diag Imaging Result Doc PS360 ---
EXAM: HEAD W/O CONTRAST HISTORY: AMS TECHNIQUE: Dose reduction protocol COMPARISON: None. FINDINGS: No parenchymal hemorrhage. No epidural or subdural hematoma. No subarachnoid hemorrhage. No mass identified on this noncontrasted exam. No hydrocephalus. No sinus opacification. IMPRESSION: No hemorrhage. Negative brain CT without contrast. Electronically signed by Adal Ferraro 08/19/2016 1:44 PM
--- NOTE | 2016-08-19 13:50 | Diag Imaging Result Doc PS360 ---
EXAM: CHEST-1 VIEW HISTORY: AMS TECHNIQUE: Semiupright AP COMPARISON: 08/15/2016 FINDINGS: Worsening infiltrates in the mid right lung. Right perihilar prominence persists. Heart is enlarged. No pleural effusions identified. There is a vascular stent on the right. IMPRESSION: Interval worsening. Electronically signed by Adal Ferraro 08/19/2016 1:47 PM
[2016-08-19 14:15] LABS: ALBUMIN 3.7 g/dL (3.5-5.0); CALCIUM 8.5 mg/dL (8.8-10.2); POTASSIUM 4.7 mmol/L (3.5-5.1); TOTAL BILIRUBIN 0.54 mg/dL (0.20-1.00); TOTAL PROTEIN 6.4 g/dL (6.3-8.3)
--- NOTE | 2016-08-19 14:19 | PROVIDER DOCUMENTATION ---
This chart was entered by Lili Lakhani Scribe, acting as scribe for Yelena Alegria MD. HPI-Neurological Disorder - General Chief Complaint: Unresponsive Stated Complaint: lethargic/unresponsive Time Seen by Provider: 08/19/16 12:35 Source: family () Allergies/Adverse Reactions: Patient Allergies Allergy/AdvReac Type Severity Reaction Status Date / Time morphine Allergy ANAPHYLAXIS Verified 08/19/16 13:14 propoxyphene napsylate * Allergy SWELLING Verified 08/19/16 13:14 [From Darvocet-N] tramadol HCl * [From Ultram] Allergy SWELLING Verified 08/19/16 13:14 IV pain meds Allergy Unknown Uncoded 08/19/16 13:14 Home Medications: Home Medication List Medication Instructions Recorded Confirmed Last Taken Type Metoprolol [Lopressor] 100 mg PO QAM 11/23/15 08/19/16 08/19/16 08:00 History Paroxetine [Paxil] 20 mg PO DAILY 03/01/16 08/19/16 08/19/16 08:00 History Omeprazole [Prilosec] 40 mg PO DAILY #30 capsule. 05/15/16 08/19/16 08/19/16 08:00 Rx Hydrocortisone [Cortef] 10 mg PO HS 08/09/16 08/19/16 08/19/16 08:00 History Furosemide [Lasix] 20 mg PO ORDERED 08/15/16 08/19/16 08/18/16 08:00 History Lorazepam [Ativan] 1 mg PO QHS #30 tablet 08/17/16 08/19/16 08/19/16 08:00 Rx Apixaban [Eliquis] 5 mg PO BID 08/19/16 08/19/16 08/19/16 08:00 History Dexamethasone 4 mg PO DAILY 08/19/16 08/19/16 08/19/16 08:00 History Eszopiclone [Lunesta] 3 mg PO HS 08/19/16 08/19/16 08/18/16 20:00 History Flecainide [Tambocor] 50 mg PO DAILY 08/19/16 08/19/16 08/19/16 08:00 History Fluconazole 100 mg PO DAILY 08/19/16 08/19/16 08/19/16 08:00 History Gabapentin 600 mg PO HS 08/19/16 08/19/16 08/19/16 08:00 History Hydrocodone/Acetaminophen [[place] 1 tab PO PRN PRN 08/19/16 08/19/16 08/19/16 08: 00 History 7.5-325 Tablet] Ondansetron [Zofran] 8 mg PO DAILY 08/19/16 08/19/16 08/19/16 08:00 History Oxycodone E.r. [Oxycontin] 15 mg PO BID 08/19/16 08/19/16 08/19/16 08:00 History Paroxetine [Paxil] 20 mg PO DAILY 08/19/16 08/19/16 08/19/16 08:00 History Promethazine HCl/Codeine 5 ml PO PRN PRN 08/19/16 08/19/16 08/19/16 12:30 History [Prometh-Codein 6.25-10 mg/5 ml] - History of Present Illness-Neuro Nature of Presenting Problem: Pt is 41 y/o M presents to the ED with AMS. Pt's states she went to wake Pt this afternoon and he woke briefly and Pt stated he was tired. Pt's states Pt complained of N last night and Pt was given zofran last night and did not complain of N the rest of the night. Pt's states Pt has lung cancer and is currently on chemo. Headache Location: denies: frontal, temporal, occipital, parietal, global Severity: reports: moderate Onset/Duration: reports: this afternoon Timing: reports: still present Context: reports: other (AMS) Character of Altered Mental Status: reports: other (lethargic) Any recent trauma/injury?: reports: none Character of Deficits: denies: new weakness, altered sensation, vision problem/ glaucoma, impaired speech, impaired swallowing, decreased ability to stand, decreased ability to walk, falling New weakness or altered sensation location:: reports: none Cognitive Baseline: poor alertness Gait Baseline: walks without assistance Associated Symptoms: reports: denies symptoms Similar Symptoms Previously?: No Recently seen or treated by another doctor?: No Review of Systems - Adult - REVIEW OF SYSTEMS - ADULT Constitutional: reports: no symptoms reported Eyes: reports: no symptoms reported Ears, Nose, Mouth & Throat: reports: no symptoms reported Cardiovascular: reports: no symptoms reported Respiratory: reports: no symptoms reported Gastrointestinal: reports: no symptoms reported Genitourinary: reports: no symptoms reported Musculoskeletal: reports: no symptoms reported Integumentary: reports: no symptoms reported Neurological: reports: other (AMS). denies: dizziness/vertigo, headache/ migraines, seizure, syncope Psychiatric: reports: no symptoms reported Endocrine: reports: no symptoms reported Hematologic/Lymphatic: reports: no symptoms reported Allergic/Immunologic: reports: no symptoms reported All Other Systems: Reviewed and Negative Past History - Adult - PAST MEDICAL HISTORY-ADULT Review of Records: reports: Nursing Assessment Review, Medications Reviewed, Social history reviewed & non-contributory. Major Childhood Illnesses: reports: denies history Cardiovascular: reports: CHF, HTN Respiratory: reports: COPD, cancer Gastrointestinal: reports: GERD Obstetrical/Gynecological: reports: denies history Genitourinary: reports: kidney stones Musculoskeletal: reports: denies history Neurological: reports: denies history Psychiatric: reports: anxiety Endocrine/Immune: reports: Lymphoma (hodgkins) Other Conditions: reports: other cancer - PRIOR SURGERIES/PROCEDURES Surgical/Procedure History: reports: back/neck, other (chest, biospy) - IMMUNIZATION STATUS Childhood Immunizations: See Nurse Assessment Flu Vaccine: See Nurse Assessment - FAMILY HISTORY Family History: reviewed, not pertinent - SOCIAL HISTORY Smoking: denies Substance Use: denies Living Situation: family Physical Exam- Neurological - Physical Exam-Neuro Initial Vital Signs Reviewed: Yes General Appearance: no apparent distress, lethargic Eye Exam: bilateral eye: normal inspection, PERRL, EOMI HENMT: normal ENT inspection Head Injury: no evidence of injury Neck: normal inspection Respiratory: chest non-tender, lungs clear, normal breath sounds Cardiovascular: normal peripheral pulses, tachycardia Abdominal Exam: normal bowel sounds, non tender, soft Lymphatic: no adenopathy 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 Exam: other (unable to assess due to AMS) Motor/Sensory: other (unable to assess due to AMS) Neurologic: other (unable to assess due to AMS) Integumentary: normal color, normal turgor, warm/dry Psych/Mental Status: other (lethargic) Progress - PLAN OF CARE/RESULTS Progress/Plan/Lab Results: Vital Signs - 8 hr 08/19/16 12:30 08/19/16 13:12 08/19/16 14:07 Temperature 99.8 F H Pulse Rate 121 H 113 H 122 H Respiratory Rate 19 14 23 Blood Pressure 81/63 97/50 96/70 O2 Sat by Pulse Oximetry 88 L 92 L 96 08/19/16 14:12 Temperature Pulse Rate 112 H Respiratory Rate 16 Blood Pressure 96/70 O2 Sat by Pulse Oximetry 94 L Laboratory Results - last 24 hr 08/19/16 08/19/16 08/19/16 12:37 12:37 12:37 WBC 3.95 L RBC 3.38 L Hgb 9.6 L Hct 30.3 L MCV 89.6 MCH 28.4 MCHC 31.7 L RDW Std Deviation 18.3 H Plt Count 367 MPV 10.2 Immature Gran % (Auto) 2.8 H Neut % (Auto) 62.7 Lymph % (Auto) 17.7 L [place] % (Auto) 15.7 H Eos % (Auto) 0.3 Baso % (Auto) 0.8 Immature Gran # (Auto) 0.11 H Neut # (Auto) 2.48 Lymph # (Auto) 0.70 L [place] # (Auto) 0.62 H Eos # (Auto) 0.01 Baso # (Auto) 0.03 Specimen Type Sample Site pH pCO2 pO2 HCO3 Base Excess Oxyhemoglobin ABG O2 Sat (Calculated) ABG O2 Saturation ABG Carboxyhemoglobin ABG Methemoglobin Edi Test A-a O2 Difference Total Hemoglobin Lactate Liter Flow Blood Gas Modality FiO2 % Sodium 138 Potassium 4.7 Chloride 99 Carbon Dioxide 27 Anion Gap 12 BUN 8 Creatinine 1.4 H Estimated GFR/1.73 m2 56 BUN/Creatinine Ratio 6 Glucose 118 H Calculated Osmolality 275 Calcium 8.5 L Total Bilirubin 0.54 AST 326 H ALT 362 H Alkaline Phosphatase 50 Troponin T < 0.010 Total Protein 6.4 Albumin 3.7 Globulin 2.7 Albumin/Globulin Ratio 1.4 Urine Source Urine Color Urine Turbidity Urine pH Ur Specific [facility] Urine Protein Ur Glucose (Stick) Ur Ketones (Stick) Urine Blood Urine Nitrite Urine Bilirubin Urobilinogen Dipstick Urine Leukocytes Urine WBC (Auto) Urine RBC (Auto) U Epithel Cells (Auto) Urine Bacteria (Auto) Urine Crystals Small Round Cells Urine Casts Urine Yeast-like Cells Urine Opiates Screen Ur Oxycodone Screen Ur Methadone, Qual Ur Barbiturates Screen Ur Phencyclidine Scrn Ur Amphetamines Screen U Benzodiazepines Scrn Urine Cocaine Screen U Cannabinoids Screen 08/19/16 08/19/16 08/19/16 14:10 14:14 14:14 WBC RBC Hgb Hct MCV MCH MCHC RDW Std Deviation Plt Count MPV Immature Gran % (Auto) Neut % (Auto) Lymph % (Auto) [place] % (Auto) Eos % (Auto) Baso % (Auto) Immature Gran # (Auto) Neut # (Auto) Lymph # (Auto) [place] # (Auto) Eos # (Auto) Baso # (Auto) Specimen Type ARTERIAL Sample Site R RADIAL pH 7.32 L pCO2 49 H pO2 77 HCO3 24.0 Base Excess -1.1 Oxyhemoglobin 94.5 L ABG O2 Sat (Calculated) 12.6 L ABG O2 Saturation 96.5 ABG Carboxyhemoglobin 1.50 ABG Methemoglobin 0.6 Edi Test YES A-a O2 Difference 118.0 Total Hemoglobin 9.4 L Lactate 1.20 Liter Flow 4.0 Blood Gas Modality CANNULA FiO2 % 36.0 Sodium Potassium Chloride Carbon Dioxide Anion Gap BUN Creatinine Estimated GFR/1.73 m2 BUN/Creatinine Ratio Glucose Calculated Osmolality Calcium Total Bilirubin AST ALT Alkaline Phosphatase Troponin T Total Protein Albumin Globulin Albumin/Globulin Ratio Urine Source CLEAN CATCH Urine Color YELLOW Urine Turbidity CLEAR Urine pH 5.5 Ur Specific [facility] 1.022 Urine Protein 100 A Ur Glucose (Stick) NEGATIVE Ur Ketones (Stick) NEGATIVE Urine Blood NEGATIVE Urine Nitrite NEGATIVE Urine Bilirubin NEGATIVE Urobilinogen Dipstick 2 A Urine Leukocytes NEGATIVE Urine WBC (Auto) <10 Urine RBC (Auto) <10 U Epithel Cells (Auto) <10 Urine Bacteria (Auto) NEGATIVE Urine Crystals Not Reportable Small Round Cells Not Reportable Urine Casts GRANULAR PRESENT Urine Yeast-like Cells Not Reportable Urine Opiates Screen PRESUMPTIVE POSITIVE A Ur Oxycodone Screen PRESUMPTIVE POSITIVE A Ur Methadone, Qual NONE DETECTED Ur Barbiturates Screen NONE DETECTED Ur Phencyclidine Scrn NONE DETECTED Ur Amphetamines Screen NONE DETECTED U Benzodiazepines Scrn PRESUMPTIVE POSITIVE A Urine Cocaine Screen NONE DETECTED U Cannabinoids Screen NONE DETECTED Orders Category Date Time Status CHEST-1 VIEW [RAD] Stat Exams 08/19/16 13:21 Completed HEAD W/O CONTRAST [CT] Stat Exams 08/19/16 13:18 Completed ABG [RESP] Routine Lab 08/19/16 14:10 Completed BLOOD CULTURE [BLDCUL] Stat Lab 08/19/16 15:38 Uncollected CBC WITH ELECTRONIC DIFF [HEME] Stat Lab 08/19/16 12:37 Completed COMPREHENSIVE METABOLIC PANEL [CHEM] Stat Lab 08/19/16 12:37 Completed LACTATE, PLASMA [CHEM] Stat Lab 08/19/16 15:38 Uncollected TROPONIN T Stat Lab 08/19/16 12:37 Completed URINALYSIS [URINALYSIS] Stat Lab 08/19/16 14:14 Completed URINE DRUG SCREEN Stat Lab 08/19/16 14:14 Completed URINE MANUAL MICROSCOPIC [URINALYSIS] Stat Lab 08/19/16 14:14 Completed 0.9% Sodium Chloride Inj [Ns] 1,000 ml Med 08/19/16 12:59 Discontinued .ROUTE As Directed 0.9% Sodium Chloride Inj [Ns] 1,000 ml Med 08/19/16 13:07 Discontinued IV 999 mls/hr Piperacil/Tazobact 4.5 gm/Ns [Zosyn 4.5 gm/Ns] Med 08/19/16 15:38 Active 4.5 gm in 100 ml IV NOW Vancomycin 1 gm/Ns Med 08/19/16 15:38 Active 1 gm in 250 ml IV NOW Result Diagrams: 08/19/16 12:37 08/19/16 12:37 - XRAY 1 XRAY Study: Chest Impression: Abnormal XRAY Interpretation: interval worsening - CT/MRI 1 CT Study: Head Impression: Normal CT Results: no hemorrhage. negative brain CT without contrast - CONSULTS/PCP/HOSPITALIST Notification #1 *Consult/PCP/Hospitalist*: Hospitalist Time Discussed: 15:37 Reason/Comments: Dr. Alegria consults with Hospitalist about Pt Consult Disposition: Admit Departure - Departure Date of Disposition Decision: 08/19/16 Time of Disposition Decision: 15:37 DIAGNOSIS: Altered mental status Qualifiers: Altered mental status type: unspecified Qualified Code(s): R41.82 - Altered mental status, unspecified Pneumonia Qualifiers: Pneumonia type: due to unspecified organism Laterality: right Lung location: middle lobe of lung Qualified Code(s): J18.1 - Lobar pneumonia, unspecified organism Sepsis Qualifiers: Sepsis type: sepsis due to unspecified organism Qualified Code(s): A41.9 - Sepsis, unspecified organism Disposition: ADMITTED INPATIENT 09 Certified Medical Emergency: Emergent Condition: Stable Referrals and Follow-Ups: None,PCP [Primary Care Provider] - - Critical Care Note This patient required my direct & personal management of CC.: Yes Total Time (mins): 45 Critical Care Statement: This patient required my direct personal management to treat or rule out processes, the absence of which, could potentiallly result in sudden, clinically significant life or limb threatening deterioration. This chart was documented by the indicated scribe, (Lili Lakhani Scribe) and accurately reflects the services I performed and decisions made by me, Yelena Alegria MD, as attested by the provider's signature.
[2016-08-19 14:23] LABS: ALLEN TEST YES; BE -1.1 mmoll (-3.0-3.0); BLOOD TYPE ARTERIAL; DRAW SITE R RADIAL; METHB 0.6 % (0.0-1.5); MODALITY CANNULA; O2(CT) 12.6 mL/dL (15.0-23.0); PCO2(98.6) 49 mmHg (35-45); PO2(98.6) 77 mmHg (60-100); SAMPLE BLOOD; SAO2 96.5 % (95.0-100.0); THB 9.4 g/dL (11.5-17.4); pH(98.6) 7.32 (7.35-7.45)
[2016-08-19 14:28] LABS: URINE SOURCE CLEAN CATCH
[2016-08-19 14:33] LABS: BILIRUBIN URINE NEGATIVE (NEGATIVE); BLOOD URINE NEGATIVE (NEGATIVE); COLOR YELLOW; GLUCOSE URINE NEGATIVE (NEGATIVE); LEUKOCYTES URINE NEGATIVE (NEGATIVE); NITRITE URINE NEGATIVE (NEGATIVE); PH URINE 5.5; PROTEIN URINE 100 mg/dL (NEGATIVE); SP GRAVITY URINE 1.022; TURBIDITY URINE CLEAR (CLEAR); UROBILINOGEN URINE 2 mg/dL (NORMAL)
[2016-08-19 14:35] LABS: URINE MICRO REVIEW NEEDED? YES
[2016-08-19 14:44] LABS: UR AMPHETAMINES QUAL NONE DETECTED (NONE DETECT); UR BARBITUATES QUAL NONE DETECTED (NONE DETECT); UR BENZODIAZEPIN QUAL PRESUMPTIVE POSITIVE (NONE DETECT); UR CANNABINOIDS QUAL NONE DETECTED (NONE DETECT); UR COCAINE QUAL NONE DETECTED (NONE DETECT); UR METHADONE QUAL NONE DETECTED (NONE DETECT); UR OPIATES QUAL PRESUMPTIVE POSITIVE (NONE DETECT); UR OXYCODONE QUAL PRESUMPTIVE POSITIVE (NONE DETECT); UR PCP QUAL NONE DETECTED (NONE DETECT)
[2016-08-19 14:49] LABS: UR EPITHELIAL CELLS <10 /HPF (<10); URINE BACTERIA NEGATIVE /HPF; URINE RBC <10 /HPF (<10); URINE WBC <10 /HPF (<10)
[2016-08-19 14:54] LABS: URINE CASTS GRANULAR PRESENT
[2016-08-19] MEDS ORDERED: VANCOMYCIN 1 GM/NS 1 GM/250 ML IVPB IV ONE ×2 (15:38→21:00)
[2016-08-19] MEDS ORDERED: ZOSYN 4.5 GM/NS 4.5 GM/100 ML IVPB IV ONE (15:38)
--- NOTE | 2016-08-19 18:01 | HISTORY AND PHYSICAL ---
CHIEF COMPLAINT: Altered mental status. HISTORY OF PRESENT ILLNESS: Mr. Greenberg is an unfortunate 41-year-old male with history of Hodgkin lymphoma in remission, non-small cell lung cancer, SVC syndrome, paroxysmal atrial fib and others, who was recently discharged from our service on 08/17/2016. At that time, he had a diagnosis of recurrent non-small cell lung cancer, dysphagia and esophageal stricture, tachycardia. He was discharged home after having an EGD by Dr. Sotomayor. The patient is really unable to give any type of history at this time and there is no one at the bedside to help with history. Apparently the patient was throwing up today and possibly over took some Phenergan and became altered and was sent here. That is essentially the only history we have. The patient reports he does not even really remember leaving the hospital 2 days ago. When he got to the ER today he had a head CT done that did not show anything acute. Chest x-ray did show worsening infiltrates in the right mid lung zone with right perihilar prominence. His labs show some anemia, mild respiratory acidosis and mild acute kidney injury. His blood pressure is a bit low and he is tachycardic with a low-grade temp so we are going to admit him to the ICU for sepsis and toxic metabolic encephalopathy. PAST MEDICAL HISTORY: 1. Hodgkin lymphoma in remission. 2. Non-small cell lung cancer. 3. SVC syndrome status post stenting. 4. COPD. 5. Morbid obesity. 6. Hypertension. 7. PAF. 8. Esophageal stricture. 9. Esophagitis. 10. Gastritis. 11. Duodenitis. 12. Chronic pain on heavy amounts of narcotic therapy. SURGICAL HISTORY: He has had lumbar surgery and port placement. FAMILY HISTORY: Noncontributory. REVIEW OF SYSTEMS: Unable to obtain. SOCIAL HISTORY: . His is currently not at the bedside but there are no reports of tobacco alcohol or drug use. ALLERGIES: To morphine, propoxyphene and tramadol. HOME MEDICATIONS: Eliquis 5 mg b.i.d. Dexamethasone 4 mg p.o. daily. Lunesta 3 mg p.o. at bedtime. Tambocor 50 mg daily. Fluconazole 100 mg p.o. daily. Lasix 20 mg p.o. as directed. Gabapentin 600 mg p.o. at bedtime. Gilberts as needed for pain. Cortef 10 mg p.o. at bedtime. Ativan 1 mg p.o. at bedtime. Lopressor 100 mg a.m. Prilosec 40 mg daily. Zofran 8 mg p.o. daily. OxyContin 15 mg b.i.d. Paxil 20 mg daily. Hydrocodone cough syrup as needed. PHYSICAL EXAMINATION: VITAL SIGNS: Blood pressure is 96/70, heart rate 122, respiratory rate 23, O2 saturation 96% on 4 L. Temperature is 99.8 degrees. GENERAL: This is a morbidly obese, male, lying in hospital bed, lethargic. NEUROLOGIC: The patient is lethargic and confused. He does follow commands without focal deficits with generalized weakness. HEENT: Head and neck are generally edematous but there is no trauma. Pupils are equal and sluggish to light response bilaterally. Oral mucosa is moist. Trachea is midline. CHEST: Diminished with crackles over the right mid lung zone. CV: Tachy and regular. S1 and S2 are noted. GI: Soft, nondistended. Bowel sounds are hypoactive. EXTREMITIES: With 1+ edema and diminished pulses bilaterally. DIAGNOSTIC DATA: WBC 3.95, hemoglobin 9.6, hematocrit 30.3, platelet count 367, 000. ABG on 4 L pH 7.32, CO2 49, O2 77, bicarb 24. Oxyhemoglobin 94.5. Lactic acid is 1.2. Sodium 138, potassium 4.7, chloride 99, CO2 27, anion gap 12, BUN 8, creatinine 1.4, glucose is 118, calcium 8.5, AST 326, ALT 362, alkaline phosphatases 50. Troponin is negative. Lactate 0.9. UA is negative. Tox screen is positive for opiates, oxycodone and benzos. Head CT is negative. Chest x-ray, right mid lung zone infiltrate. ASSESSMENT/PLAN: 1. Toxic metabolic encephalopathy: We are going to hold all of his narcotic therapy for now. The patient is quite confused and lethargic. Once he is more awake we will restart his pain medication slowly. Head CT is assuring and he is very minimally hypercapnic which is not likely to cause the level of lethargy that the patient is exhibiting. Monitor him in ICU. 2. Sepsis: Patient meets criteria with tachycardia, hypotension, white count and source of pneumonia. Blood cultures have been obtained and we will start vancomycin and Zosyn as he was recently in the hospital. We will check a chest x-ray daily and add breathing treatments. 3. Anemia: Review of his labs do not show any recent iron studies so will check those, treat accordingly. 4. Acute kidney injury. Likely volume related. We will give him some fluids and check a creatinine in the morning. If no improvement will check ultrasound and consultation with Nephrology. 5. Non-small cell lung cancer: Overall stable. We consulted Heme/Onc. Will defer any treatment to them. 6. Paroxysmal atrial fibrillation: We are going to check an EKG now. His troponins are negative. Will continue his Eliquis and Tambocor. 7. SVC syndrome: Continue his Eliquis. 8. Chronic steroid use: We are going to continue his Cortef and prednisone. 9. DVT prophylaxis is provided with his Eliquis. Further recommendations to follow. Dictated by CRISTOBAL Ambrose for Jose E Covarrubias MD cc: CRISTOBAL Ambrose MD I have seen and examined patient. i agree with the above evaluation and plan. AMS 2/2 global encephalopathy... prescription drugs suspect. Admit to ICU, neuro checks q 2hrs. MTDD
[2016-08-19] MEDS ORDERED: VANCOMYCIN IV PER PHARMACY MISC SCH (19:01)
[2016-08-19] MEDS ORDERED: DUONEB (A & A) INH PRN (19:01)
[2016-08-19] MEDS: DUONEB (A & A) INH SCH ×2 (19:15→23:22)
[2016-08-19] MEDS ORDERED: ZOSYN 3.375 GM/NS 3.375 GM/50 ML IVPB IV SCH (20:00)
[2016-08-19] MEDS: ELIQUIS PO SCH (21:20)
[2016-08-19] MEDS: CORTEF PO SCH (21:20)
[2016-08-19] MEDS: NS 1,000 ML IV SCH (22:13)
[2016-08-19] MEDS: ZOSYN 3.375 GM/NS 3.375 GM/50 ML IVPB IV SCH (22:21)
[2016-08-20] MEDS: NS 1,000 ML IV SCH (03:26)
[2016-08-20] MEDS: DUONEB (A & A) INH SCH ×6 (03:51→23:09)
[2016-08-20] MEDS: ZOSYN 3.375 GM/NS 3.375 GM/50 ML IVPB IV SCH ×4 (04:02→22:13)
[2016-08-20 04:38] LABS: HEMATOCRIT 25.6 % (42.0-52.0); MCH 28.3 PG (27-31); MCHC 31.3 g/dL (33-37); MCV 90.5 FL (81-99); MPV 9.7 FL (7.4-10.4); RBC 2.83 XMIL (4.7-6.1)
[2016-08-20 04:52] LABS: AGAP 10; ALBUMIN 2.8 g/dL (3.5-5.0); ALKALINE PHOSPHATASE 39 U/L (32-122); BUN 6 mg/dL (8-22); CHLORIDE 113 mmol/L (98-107); COSMO 289; GOT 214 U/L (10-34); GPT 302 U/L (10-44); IRON SATURATION 13 %; POTASSIUM 3.4 mmol/L (3.5-5.1); SODIUM 147 mmol/L (136-145); TCO2 24 mmol/L (25-35); TIBC 204 ug/dL; TOTAL BILIRUBIN 0.42 mg/dL (0.20-1.00); TOTAL IRON 26 ug/dL (53-167); TOTAL PROTEIN 4.5 g/dL (6.3-8.3); UNBOUND IRON 178 ug/dL (112-346)
[2016-08-20 05:00] LABS: CALCIUM 6.9 mg/dL (8.8-10.2)
--- NOTE | 2016-08-20 06:56 | Diag Imaging Result Doc PS360 ---
EXAM: CHEST-PORTABLE HISTORY: dyspnea TECHNIQUE: Portable COMPARISON: 08/19/2016 FINDINGS: There are persistent infiltrates in the right base. No definite change. The heart is borderline mildly prominent. No pleural effusions identified. The overall appearance of the chest is similar to that of the prior exam. IMPRESSION: No interval improvement. Electronically signed by Adal Ferraro 08/20/2016 6:54 AM
[2016-08-20] MEDS: D5 1/2 NS 1,000 ML IV SCH ×2 (07:50→16:57)
[2016-08-20] MEDS ORDERED: CALCIUM GLUCONATE 1 GM in NS 50 ML IV ONE (08:29)
[2016-08-20] MEDS: DIFLUCAN PO SCH (08:46)
[2016-08-20] MEDS: ELIQUIS PO SCH ×2 (08:46→21:45)
[2016-08-20] MEDS: DECADRON PO SCH (08:46)
[2016-08-20] MEDS: TAMBOCOR PO SCH (08:46)
--- NOTE | 2016-08-20 11:54 | PROGRESS NOTE ---
DATE: 08/20/2016 SUBJECTIVE: Today Mr. Greenberg is a whole lot better. His mentation has significantly improved. I spoke extensively to the . According to the , Mr. Greenberg had severe esophagitis with dysphagia. Had dilation of the esophagus last Sunday. Was home, doing fine. Was able to eat and drink and then yesterday he was very difficult to wake him up. Called the ambulance and EMS went and his O2 saturation was low. His eyes were very pinpoint. Was brought into the emergency department. Upon presentation, his initial vitals, his O2 saturation was 88, with a pulse of 81, with a blood pressure of 81/63, temperature was 99.8 degrees. The patient was placed on nasal cannula and that his oxygen level improved. OBJECTIVE: Vital signs: His vitals now blood pressure is 103/75, pulse of 142 , respirations 14, temperature is 97.0 degrees. Patient is saturating 98% on 3 L of oxygen. General Examination: Mr. Greenberg is a 41-year-old male. He is in bed. He is not in any remarkable distress. HEENT: Mucosa is pink and moist. Anicteric. Acyanotic. Neck: Supple. The face is slightly puffy, consistent with the history of superior vena cava syndrome. Chest: Air entry is bilaterally reduced. No crepitations. No rhonchi. Cardiovascular: Tachycardic, but no murmur, no rubs. Abdomen: Soft, nontender. Extremities: No pedal edema. WILDLIFE VETERINARIAN: Patient is drowsy, but is easily arousable and is conversational. LABORATORY DATA: WBC is 2.36, hemoglobin is 8.0, platelet count is 230,000. Sodium is 147, potassium is 3.4, chloride is 113, bicarb is 24. Calcium is 6.2. AST is down to 214, ALT is down to 303. Patient's urine toxicology was positive for presumed opioids, Oxycodone and benzodiazepines. A head CT scan, which was done on admission, shows no hemorrhage. Negative CT scan. A chest x- ray done on admission shows worsening infiltrates in the right middle lobe. Right parahilar prominence persists. No pleural effusions were identified. There is a vascular stent on the right. An x-ray done this morning shows no interval improvement. CURRENT MEDICATIONS: 1. Albuterol nebs. 2. Apixaban 5 mg b.i.d. 3. Decadron 4 mg daily. 4. Flecainide 50 mg daily. 5. Fluconazole 100 mg daily. 6. Hydrocortisone 10 mg at bedtime. 7. Zosyn 3.375. 8. Vancomycin. ASSESSMENT: 1. Altered mental status, which we think it is secondary to global encephalopathy from toxic metabolic etiology. Patient is on a lot of pain medications. He also has obstructive sleep apnea. He came in hypoxemic and his pupils were very pin-point. His mentation is gradually getting better. We will going to continue observation. 2. Hypotension. Etiology is unclear, but we think is a combination of drug side effects, as well as sepsis. Patient is getting IV fluids and treatment for the possible sepsis and we withheld any possible medication that can get him hypotensive. 3. History of non-small cell lung cancer. Patient follows-up with Dr. Iqbal. 4. Right middle lobe pneumonia. We will continue with current antibiotics. 5. History of tachyarrhythmias (paroxysmal atrial fibrillation and sinus tachycardia). The patient is on Tambocor and Eliquis. 6. 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 7. Chronic steroid use. 8. Obstructive sleep apnea, noted. 9. Transaminitis, likely due to ischemic liver. The liver enzymes are progressively improving. 10. Mild hypernatremia with hyperchloremia, possibly due to the intravenous fluids. We will therefore change the fluids to D5 and 1/2 normal saline. In general, I think that Mr. Greenberg mentation is getting better. We are going to continue with his current antibiotics and antifungal for presumed esophageal candidiasis. We are going to start him on food, as his mentation is improving. We will observe him here in the ICU today and hopefully transfer him out tomorrow. cc: Jose E Covarrubias MD Critical time spent 45 minutes. DIMITRI
[2016-08-20] MEDS: VANCOMYCIN 2 GM in NS 500 ML IV SCH (14:20)
[2016-08-20] MEDS ORDERED: SODIUM CHLORIDE 0.9% INJ PRN (16:36)
[2016-08-20] MEDS: PHENERGAN IV PRN (16:59)
[2016-08-20] MEDS: DILAUDID IV PRN ×2 (18:27→22:19)
[2016-08-20] MEDS ORDERED: CARDIZEM IV ONE (21:19)
[2016-08-20] MEDS: CORTEF PO SCH (21:45)
[2016-08-20] MEDS: PROTONIX IV SCH (22:00)
[2016-08-21] MEDS ORDERED: CARDIZEM 100 MG/NS 100 MG/100 ML IVPB IV SCH (01:04)
[2016-08-21] MEDS: NORCO-10 PO PRN ×5 (02:13→22:30)
[2016-08-21] MEDS: DUONEB (A & A) INH SCH ×5 (03:31→19:59)
[2016-08-21] MEDS: ZOSYN 3.375 GM/NS 3.375 GM/50 ML IVPB IV SCH ×4 (04:47→22:30)
[2016-08-21] MEDS: D5 1/2 NS 1,000 ML IV SCH ×3 (04:52→22:30)
[2016-08-21 05:08] LABS: HEMATOCRIT 45.4 % (42.0-52.0); HEMOGLOBIN 14.8 g/dL (14.0-18.0); MCH 28.8 PG (27-31); MCHC 32.6 g/dL (33-37); MCV 88.5 FL (81-99); MPV 10.3 FL (7.4-10.4); RBC 5.13 XMIL (4.7-6.1)
[2016-08-21 06:20] LABS: AGAP 17; BUN 6 mg/dL (8-22); CALCIUM 7.9 mg/dL (8.8-10.2); CHLORIDE 102 mmol/L (98-107); COSMO 286; POTASSIUM 4.1 mmol/L (3.5-5.1); SODIUM 143 mmol/L (136-145); TCO2 24 mmol/L (25-35)
--- NOTE | 2016-08-21 07:08 | EKG Report ---
Test Performed on : 08/19/2016 5:15:18 PM Test Reason : tachycardia Blood Pressure : / mmHG Vent. Rate : 103 BPM Atrial Rate : 103 BPM P-R Int : 202 ms QRS Dur : 106 ms QT Int : 364 ms P-R-T Axes : 044 071 065 degrees QTc Int : 476 ms Sinus tachycardia. Possible Left atrial enlargement Inferior infarct , age undetermined Abnormal ECG When compared with ECG of 19-AUG-2016 12:23, (Unconfirmed) Questionable change in QRS axis Unconfirmed Result
--- NOTE | 2016-08-21 07:17 | Diag Imaging Result Doc PS360 ---
EXAM: CHEST-PORTABLE HISTORY: dyspnea TECHNIQUE: Portable COMPARISON: 08/20/2016 FINDINGS: The lungs are well expanded. The heart is not enlarged. The vessels are not distended. No pleural effusions identified. Dense right perihilar infiltrate persists. This may be slightly smaller than on the prior exam. IMPRESSION: Slight interval improvement. Electronically signed by Adal Ferraro 08/21/2016 7:15 AM
[2016-08-21] MEDS: VANCOMYCIN 2 GM in NS 500 ML IV SCH (08:55)
[2016-08-21] MEDS: TAMBOCOR PO SCH (08:55)
[2016-08-21] MEDS: DIFLUCAN PO SCH (08:57)
[2016-08-21] MEDS: DECADRON PO SCH (08:57)
[2016-08-21] MEDS: ELIQUIS PO SCH ×2 (08:57→20:32)
--- NOTE | 2016-08-21 09:01 | EKG Report ---
Test Performed on : 08/20/2016 9:08:20 PM Test Reason : ELEVATED HR Blood Pressure : / mmHG Vent. Rate : 157 BPM Atrial Rate : 157 BPM P-R Int : 128 ms QRS Dur : 102 ms QT Int : 286 ms P-R-T Axes : 000 198 -23 degrees QTc Int : 462 ms Sinus tachycardia. Right superior axis deviation Inferior infarct (cited on or before 15-AUG-2016) Abnormal ECG When compared with ECG of 20-AUG-2016 06:44, (Unconfirmed) T wave inversion no longer evident in Inferior leads Nonspecific T wave abnormality no longer evident in Anterolateral leads Confirmed by Guille ARRIAGA, Ray Gordon ([id number]) on 08/22/2016 12:26:17 PM
[2016-08-21] MEDS: CARDIZEM PO SCH ×3 (10:36→22:31)
--- NOTE | 2016-08-21 10:36 | CONSULTATION ---
DATE OF CONSULTATION: 08/21/2016 INDICATION FOR THE CONSULTATION: Tachycardia. HISTORY OF PRESENT ILLNESS: Mr. Greenberg is an unfortunate, 41-year-old, white male with a history of Hodgkin's lymphoma as well as non-small cell lung cancer and SVC syndrome treated via stenting previously. He had a recent hospitalization with discharge on the with chest discomfort and dysphagia as well as esophageal stricture. This was treated via EGD and esophageal dilatation by Dr. Sotomayor. Apparently, the patient re-presented to the hospital on the with complaints of altered mental status. It was presumed that he possibly took some Phenergan and became altered, and may have even taken supratherapeutic doses. He was not aware of what was going on that evening. He has no complaints of shortness of breath. He has chronic chest discomfort that has not changed in the interim. He reports no shortness of breath presently. He is not having any fevers. He is tolerating oral intake. He occasionally has some mild heart palpitations but has not had any recently. Presently, he is awake and alert. He is off BiPAP, breathing comfortably, and able to answer all questions appropriately. PAST MEDICAL HISTORY: 1. Significant for Hodgkin's lymphoma, currently in remission. 2. Non-small cell lung cancer, currently being followed by Dr. Sera Iqbal. 3. History of SVC syndrome, status post stenting. 4. COPD. 5. Morbid obesity. 6. Obstructive sleep apnea. 7. Hypertension. 8. Paroxysmal atrial fibrillation, maintained on an outpatient basis with flecainide and Eliquis. 9. History of esophageal stricture with dilatation within the last week. 10. Candidal esophagitis, recently diagnosed within the last week. 11. Gastritis. 12. Duodenitis. 13. Chronic pain with home narcotic therapy. SOCIAL HISTORY: He is . is not present. No reports of tobacco or alcohol use. FAMILY HISTORY: Hypertension. REVIEW OF SYSTEMS: Unable to be obtained. PHYSICAL EXAMINATION: Vital Signs: Currently and during this hospitalization, the patient has been afebrile. His heart rate presently is in the low 100s. His blood pressure is 121/73. General: He is in no acute distress. HEENT: Oropharynx is moist. Normal dentition. Eye examination shows pink conjunctivae and white sclerae. Neck: Examination shows no obvious thyromegaly or thyroid tenderness. Cardiovascular: He is in a regular rate and rhythm. He has no obvious murmurs. His current heart rate is in the high 90s. He has no lower extremity edema. Warm and well perfused lower extremities. Chest Examination: Sounds relatively clear with no increased work of breathing. Somewhat diminished sounds due to chest girth. Abdomen: Soft, nontender, nondistended. He has no obvious organomegaly. Skin Examination: Warm and dry throughout without any rashes. Neurological: He is moving all extremities well. Cranial nerves 2-12 are intact without any sensation deficits. PERTINENT DATA: His white count is 1.7 and his hematocrit is 45.4. I am unclear exactly what has caused the change in his hematocrit considering on the it was 30, on the it was 25, and today it is 45.4. There has been no transfusion in the interim. Platelet count is 152,000. His sodium is 143, potassium is 4.1, BUN 6, creatinine is 1.3. His magnesium level is 1.7. His troponin has been negative. His thyroid studies on the and the were normal. His urinalysis was unremarkable with the exception of some granular casts, mild amount of protein. His UDS was positive for benzodiazepines, oxycodone, and opiates. ASSESSMENT: 1. Altered mental status. 2. Tachycardia. PLAN: His most recent EKGs during this hospitalization seem to demonstrate sinus tachycardia. This was present on two separate EKGs on the as well as on the . There was no evidence of atrial fibrillation during this hospitalization and I am unclear exactly what his history of atrial fibrillation is but it seems like he has been treated with flecainide and Tambocor for that issue. For now, I would continue on those medications. I would continue to watch his hematocrit, considering the wide variability he has had over the last few days. He certainly could be infected and that could be the etiology of his tachycardia. His chest x-ray demonstrated persistent infiltrates in the right base but generally speaking, there does not appear to be any significant worsening. He did have an echocardiogram on the that demonstrated a normal ejection fraction of 65-70% with evidence for pulmonary hypertension with an RV systolic pressure of 73 and a moderate degree of TR. I would continue on the diltiazem presently. Continue to treat with antibiotics. cc: Mian Colon MD
--- NOTE | 2016-08-21 11:51 | Diag Imaging Result Doc PS360 ---
US ABDOMEN-COMPLETE - 08/21/2016 INDICATION: increased liver tests COMPARISON: Chest CT from 08/15/2016 FINDINGS: The liver is diffusely increased in echotexture without evidence of focal mass or fluid collection. There is splenomegaly. The spleen measures 14.8 x 14.7 x 5.4 cm. Gallbladder is mostly collapsed but otherwise normal. Common bile duct measures 4 mm. The pancreas is obscured. Both kidneys are normal. Aorta, IVC, and main portal vein are patent. IMPRESSION: 1. Diffusely increased echotexture of the liver suggesting hepatic steatosis. 2. Mild splenic megaly. Electronically signed by Min Preciado 08/21/2016 11:49 AM
--- NOTE | 2016-08-21 12:47 | EKG Report ---
Test Performed on : 08/19/2016 12:23:11 PM Test Reason : ED. NOT ORDERED IN [place] Blood Pressure : / mmHG Vent. Rate : 120 BPM Atrial Rate : 120 BPM P-R Int : 186 ms QRS Dur : 108 ms QT Int : 326 ms P-R-T Axes : 040 198 043 degrees QTc Int : 460 ms Sinus tachycardia. Possible Left atrial enlargement Possible Lateral infarct (cited on or before 15-AUG-2016) Abnormal ECG When compared with ECG of 15-AUG-2016 03:23, (Unconfirmed) Nonspecific T wave abnormality, improved in Inferior leads Nonspecific T wave abnormality no longer evident in Lateral leads Unconfirmed Result
--- NOTE | 2016-08-21 12:57 | EKG Report ---
Test Performed on : 08/20/2016 06:44:52 AM Test Reason : CCU. NOT ORDERED IN [place] Blood Pressure : / mmHG Vent. Rate : 141 BPM Atrial Rate : 141 BPM P-R Int : 140 ms QRS Dur : 102 ms QT Int : 370 ms P-R-T Axes : 000 141 -49 degrees QTc Int : 566 ms Sinus tachycardia. Left posterior fascicular block Cannot rule out Inferior infarct (cited on or before 15-AUG-2016) Abnormal ECG When compared with ECG of 19-AUG-2016 17:15, (Unconfirmed) T wave inversion now evident in Inferior leads Nonspecific T wave abnormality, worse in Anterolateral leads Confirmed by Guille ARRIAGA, Ray Gordon ([id number]) on 08/22/2016 12:26:04 PM
[2016-08-21] MEDS ORDERED: CARDIZEM PO SCH (14:00)
--- NOTE | 2016-08-21 14:08 | PROGRESS NOTE ---
DATE: 08/21/2016 SUBJECTIVE: Today Mr. Greenberg referred to be doing a lot better. His mentation is significantly improved. OBJECTIVE: Vital signs: Blood pressure is 121/73, pulse is down to 103, respirations 15, temperature 98.2 degrees. General: Mr. Greenberg 41-year-old male. He is in bed, does not seem to be in remarkable distress. HEENT: Mucosa is pink and moist. Anicteric. Acyanotic. Neck is supple. Face looks puffy consistent with his history of superior vena cava syndrome. Chest: Air entry is bilaterally reduced. No crepitations. No rhonchi. Cardiovascular: Slightly tachycardic but no murmurs, no rubs. Abdomen: Soft. Extremities: No pedal edema. QUALITY ASSOCIATE: Patient is awake, alert and oriented x4. There is no focal neurological deficit. LABORATORY DATA: WBC is 1.76, hemoglobin is 14.8, platelet count of 152,000. Chemistry is reviewed completely unremarkable except for creatinine of 1.3. A chest x-ray which was done this morning shows heart is not enlarged. Vessels are not distended. No pleural effusion identified. Dense right perihilar infiltrate persist. ASSESSMENT: 1. Altered mental status on presentation secondary to toxic metabolic encephalopathy. Mentation has been improved. We think this is likely due to prescription drug side effects. However patient is very adamant and clear that he does not take more than what he is prescribed of his pain medications and sedatives at home. 2. Hypotension on presentation likely due to medication side effects vrs sepsis. Blood pressure is a lot better. So far blood cultures have been negative. The patient was started on IV antibiotics for possible septic shock. 3. Right middle lobe pneumonia. Will continue with the IV antibiotics. 4. History of tachyarrhythmias (paroxysmally atrial fibrillation and sinus tachy). Patient is on Tambocor, had to be started on IV diltiazem overnight, blood pressures a whole lot better. Cardiology has been consulted. The plan is to switch to p.o. diltiazem. 5. 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 6. Transaminitis likely due to ischemic liver. We will repeat the LFTs for tomorrow morning. 7. Mild hypernatremia and hyperchloremia is improved. 8. Acute kidney injury likely due to hypoperfusion during the episode of hypotension and tachyarrhythmias. Will continue to follow up with renal functions. I think in general Mr. Greenberg is doing a lot better. Mentation has completely improved, tachyarrhythmia is also improved and blood pressure is improved. We are going to transfer him from the ICU to regular floor once he gets a stress dose of Cardizem and the drip is turned off. Patient is being followed up by hematology/oncology Dr. Phillips and also GI doctor Dr. Sotomayor. We consulted Dr. Sotomayor because patient just had dilation of the esophagus due to dysphagia 08/15/2016 so we consulted for regular postop followup. In general I think Mr. Greenberg carries a very poor prognosis. He has underlying aqu-rudwa-dggz lung cancer which he normally follows up with Dr. Phillips and also superior vena cava syndrome status post vascular stent. In terms of disposition once patient gets to the floor will observe him overnight. If he continues to be stable in terms of mentation zamora and his pulse better controlled he can be discharged by tomorrow on oral antibiotics. cc: Jose E Covarrubias MD [facility]
[2016-08-21] MEDS: CORTEF PO SCH (20:32)
[2016-08-21] MEDS: PROTONIX IV SCH (22:30)
[2016-08-21] MEDS: SODIUM CHLORIDE 0.9% INJ SCH (22:30)
[2016-08-21] MEDS: ROBITUSSIN PO PRN (22:38)
[2016-08-22] MEDS: ZOSYN 3.375 GM/NS 3.375 GM/50 ML IVPB IV SCH ×2 (03:04→09:02)
[2016-08-22] MEDS: NORCO-10 PO PRN ×2 (03:04→09:02)
[2016-08-22] MEDS: DUONEB (A & A) INH SCH ×7 (03:29→23:26)
--- NOTE | 2016-08-22 03:43 | CONSULTATION ---
DATE OF CONSULTATION: 08/20/2016 PRIMARY PROVIDER: Sera Iqbal M.D. REFERRING PHYSICIAN: Jose E Covarrubias M.D. INDICATION FOR CONSULTATION: 1. Elevated liver function tests. 2. Altered mental status. HISTORY OF PRESENT ILLNESS: Mr. Greenberg is a 41-year-old, white male who has been followed in our clinic. He has a history of non-Hodgkin's lymphoma that was subsequently treated, non- small-cell lung cancer, SVC syndrome, paroxysmal atrial fibrillation, and morbid obesity. Since January 2016, the patient has required an EGD on 5 separate occasions to relieve food impactions due to dysphagia and esophageal stricturing. His most recent EGD was performed on 08/15/2016. He was discharged to home on 08/17/2016 tolerating his diet. He was also noted to have paroxysmal atrial fibrillation and congestive heart failure during that admission. While at home, his reports that he did well on 08/16/2016 and 08/17/2016. She noticed that he was less active on 08/18/2016. On the morning of 08/19/2016, when the family went to arouse him, he was unarousable. When they found him, his pupils were pinpoint, respirations were depressed. In the emergency room, he was found to have altered mental status and does not recall any events from the time he went to bed from the day before. The patient believes that he took his regular medications as well as Phenergan but denies use of other substances. Unfortunately, he has partial amnesia of the 2 days following his hospital discharge. In the emergency room, a head CT was done that was negative for acute lesions. His chest x-ray showed worsening of infiltrates in the right mid lung zone with right perihilar prominence. His labs were remarkable for anemia, respiratory acidosis, and mild acute kidney injury. He was also noted to have a low grade temperature and resting tachycardia. His labs were also notable for a marked elevation in his liver function tests which is new. His blood pressure was slightly hypotensive with a resting tachycardia and a low-grade temperature. He was admitted to the ICU for presumed sepsis and metabolic encephalopathy. We are asked to participate in his care. PAST MEDICAL HISTORY: 1. Non-Hodgkin's lymphoma. 2. Dar-iywpr-enev lung CA. 3. SVC syndrome, status post stenting. 4. COPD. 5. Morbid obesity. 6. Hypertension. 7. Paroxysmal atrial fibrillation. 8. History of esophageal stricture. 9. Reflux esophagitis. 10. Peggy esophagitis. 11. Gastritis. 12. Duodenitis. 13. Chronic pain syndrome. 14. Congestive heart failure. 15. Aspiration pneumonia. 16. History of peptic ulcer disease. PAST SURGICAL HISTORY: 1. Lumbar surgery. 2. Port placement. 3. Multiple lung biopsies. FAMILY HISTORY: Remarkable in that his father had premature coronary artery disease at age 54 years of age. SOCIAL HISTORY: Remarkable in that the patient previously used alcohol, marijuana, cocaine, and crack. He has been alcohol and drug free for approximately 16 years. MEDICATION ALLERGIES: 1. Ultram. 2. IV pain medications. 3. Morphine. 4. Darvocet. HOME MEDICATIONS: 1. Promethazine / codeine. 2. Paxil. 3. Oxycodone. 4. Zofran. 5. Prilosec. 6. Lopressor. 7. Ativan. 8. Cortef. 9. Poynette 7.5. 10. Gabapentin. 11. Lasix. 12. Diflucan. 13. Tambocor. 14. Lunesta. 15. Dexamethasone. 16. Eliquis. PHYSICAL EXAMINATION: Vital Signs: On examination, his blood pressure is 101/ 62, pulse of 159, respirations 24, temperature of 97.3 degrees. HEENT: Negative for jaundice. Chest: His chest is clear anteriorly with decreased breath sounds posteriorly. Cardiovascular Examination: Remarkable for tachycardia. Neck: His neck is supple. However, he has a plethora of soft tissue in the neck and the face, consistent with SVC syndrome. Pulmonary Examination: He has decreased breath sounds bilaterally. There is no rhonchi, rales, or wheezes. Cardiovascular Examination: Remarkable for resting tachycardia. Abdominal Examination: Reveals normoactive bowel sounds. The abdomen is soft and nontender with central obesity. Extremities: Bilaterally are negative for cyanosis, clubbing, or edema. OBJECTIVE DATA: Reveals a hemoglobin of 8, with hematocrit of 25.6, and white count of 2.36. He has 230,000 platelets. Sodium is 147, potassium 3.4, chloride 113, CO2 24, BUN 6, creatinine 1, with a glucose of 85. His calcium is 6.9, total bilirubin of 0.42, AST of 214, ALT of 302, alkaline phosphatase of 39, total protein of 4.5, with an albumin of 2.8. His iron is 26, with a ferritin of 1770, his B12 was 1393, folate 16.8, and TSH 0.6. Of note, on admission, his AST was 326 and ALT of 362. IMPRESSION: 1. Altered mental status. 2. Hypotension. 3. Anemia. 4. Elevated liver function tests. 5. Known esophageal stricture. 6. Peggy esophagitis. 7. Reflux esophagitis. 8. Gastroduodenitis. RECOMMENDATION: 1. I agree with the administration of antibiotics for presumed sepsis. Given that the patient was found down, it is possible that he has an aspiration pneumonia. He does have a history of aspiration pneumonia in the past. 2. I would resume Diflucan for his Peggy esophagitis. 3. Begin IV Nexium or Protonix for the treatment of his known gastroesophageal reflux disease and reflux esophagitis. 4. He has elevated liver function tests which are new. I suspect it is related to hypotension and/or sepsis. However, I would order a hepatitis profile to further evaluate his abnormal liver function tests. I would also check a right upper quadrant ultrasound. 5. If his anemia persists or continues, he may benefit from a colonoscopy. However, this can be performed once he is more stable from a clinical perspective, as he does not have objective evidence of ongoing bleeding. Please check a stool for occult blood in light of his declining hemoglobin. 6. Additional recommendations to follow based on his clinical course. cc: MD Sera Quick MD Raphael K. Quansah, MD MTDD
--- NOTE | 2016-08-22 05:47 | CONSULTATION ---
DATE OF CONSULTATION: 08/21/2016 REASON FOR CONSULTATION: Dr. Covarrubias. Consultation is for lung cancer. Patient known. HISTORY OF PRESENT ILLNESS: Mr. Greenberg is a 41-year-old, male who is known to us, as we are currently treating him for recurrent non-small cell lung cancer. Patient is currently getting Navelbine, with his last dose being at the end of July. The patient was just admitted to the hospital and discharged on 08/17/2016 for shortness of breath and tachycardia. He now presents with altered mental status. He has been admitted for what is thought to be sepsis and toxic metabolic encephalopathy. Patient does have a history of SVC syndrome, status post stent placement. At this time, the patient's mental status is returning to his baseline. He is still in the ICU, but seems to be improving. PAST MEDICAL HISTORY: 1. Hodgkin's lymphoma, in remission. 2. Non-small cell lung cancer, currently undergoing chemotherapy treatment with Navelbine, last dose on 08/02/2016. 3. SVC syndrome, status post stent placement. Currently on Eliquis. 4. COPD. 5. Morbid obesity. 6. Hypertension. 7. Paroxysmal atrial fibrillation. 8. Esophageal stricture. 9. Gastritis. PAST SURGICAL HISTORY: Low back surgery, and then also status post port placement. FAMILY HISTORY: Positive for his father, who of coronary artery disease at age 54. SOCIAL HISTORY: Patient is currently . His is at bedside. He denies any current tobacco or alcohol use. REVIEW OF SYSTEMS: A 12 point review of systems has been completed and is negative, except for what is expressed in history of present illness. PHYSICAL EXAMINATION: Vital Signs: Temperature 98.8 degrees, heart rate 106, respirations 12, blood pressure 128/79, O2 saturation 94% on room air. General: Obese male, sitting in the hospital bed, in no acute distress. is at bedside. HEENT: Head: Normocephalic, atraumatic. Eyes: Pupils equal, round, reactive. Ears, Nose, Throat, Neck, Mouth: Oral mucosa appears to be normal. Trachea midline. Gross auditory acuity is intact. Cardiovascular: S1-S2 heard. Tachycardia noted. Regular rhythm. Respiratory: Chest is essentially clear to auscultation bilaterally. Normal respiratory effort. Abdomen: Soft, nontender , nondistended, with positive bowel sounds. Musculoskeletal: No obvious bony abnormalities. Extremities: Patient has trace edema x4. Neurologic: Patient and alert oriented x3. No focal motor deficits noted. LABORATORY STUDIES: White blood cells are 1.76, hemoglobin 14.8, hematocrit 45.4, platelet count 152,000. Sodium 143, potassium 4.1, chloride 102, CO2 24, BUN 6, creatinine 1.3 , glucose 157. CT The head was negative for any acute findings. Ultrasound of the abdomen shows diffusely increased echotexture delivery, suggesting hepatic steatosis and mild splenic medical care evaluation specialist. ASSESSMENT AND PLAN: 1. Non-small cell lung cancer, recurrent. Patient is currently receiving Navelbine. His treatment has been on hold due to his recent hospitalization. His last dose was 08/02/2016. Treatment continued to be on hold while his current issues resolved. He will follow up as an outpatient, to consider re-initiating treatment. 2. Altered mental status. Believed to be secondary to metabolic encephalopathy. Patient appears to be back at baseline. A head CT is negative, as per above. 3. Hypotension. Possibly secondary to medications versus possible septic shock. Patient is currently on IV antibiotics. His blood pressure is much better at this time. 4. Tachyarrhythmias. Currently, on Cardizem per Cardiology. Sinus tachycardia currently. 5. Transaminitis, likely secondary to ischemic liver. Ultrasound of the abdomen as per above. Repeat labs tomorrow. 6. Leukopenia. Patient has not had treatment in some time. Followup on this tomorrow. We will go ahead and check a CBC with differential. We want to thank you for consulting us on Mr. Greenberg. We will continue to follow along and adjust our treatment plan per his hospital course. Dictated by SUKHI Sutherland for Manish Mohan MD cc: Manish Mohan MD [facility]
[2016-08-22] MEDS: CARDIZEM PO SCH ×4 (05:49→21:55)
[2016-08-22 07:32] LABS: CALCIUM 8.1 mg/dL (8.8-10.2); POTASSIUM 3.9 mmol/L (3.5-5.1)
--- NOTE | 2016-08-22 08:50 | PROGRESS NOTE ---
DATE: 08/22/2016 SUBJECTIVE: Mr. Greenberg reports she feels better today. He is not as short of breath. PHYSICAL EXAMINATION: He is afebrile. His heart rate is in the 90s presently. He has been in the low 100s to 90s over the course of the evening. Blood pressure is 141/81. His I's and O's appear to be positive a total of 4 0.5 L over the course of the hospitalization. General: In no acute distress. Cardiovascular: He is in a regular rate and rhythm. No murmurs. No S3. Heart rate is in the 90s at the time of my examination. He has no lower extremity edema. Warm and well perfused lower extremities. Chest exam sounds relatively clear. No increased work of breathing. Abdomen is soft, nontender, nondistended. No obvious organomegaly. PERTINENT DATA: His CBC is currently pending. His sodium is 139, potassium 3.9, BUN is 12. Creatinine is 3.2 which is up from 6 and 1.3 yesterday. Mag level is 1.7. ASSESSMENT: 1. Acute kidney injury. 2. Tachycardia thought to be sinus tach although having a history of atrial fibrillation, presently on flecainide. PLAN: I will repeat his chemistry as well as consider consultation with the nephrology service. He seems to have had a significant trend up in his creatinine although his BUN does not seem to reflect that as well. At this point, I have no further Cardiology recommendations presently. We will continue him on his current doses of medications. cc: Mian Colon MD
[2016-08-22] MEDS: DIFLUCAN PO SCH (09:01)
[2016-08-22] MEDS: ELIQUIS PO SCH ×2 (09:01→20:20)
[2016-08-22] MEDS: DECADRON PO SCH (09:01)
[2016-08-22] MEDS: TAMBOCOR PO SCH (09:01)
[2016-08-22] MEDS: D5 1/2 NS 1,000 ML IV SCH (09:13)
[2016-08-22 09:44] LABS: CALCIUM 8.3 mg/dL (8.8-10.2); POTASSIUM 4.4 mmol/L (3.5-5.1)
[2016-08-22 10:23] LABS: BASO% 0.3 % (0.0-0.8); EOS# 0.01 X1000 (0.0-0.7); EOS% 0.2 % (0.0-10.0); HEMATOCRIT 32.4 % (42.0-52.0); HEMOGLOBIN 10.1 g/dL (14.0-18.0); IMM GRAN# 0.25 X1000 (0.0-0.04); IMM GRAN% 3.9 % (0.0-0.5); LYMPH# 0.71 X1000 (1.2-3.4); MANUAL DIFF NEEDED? YES; MCH 28.5 PG (27-31); MCHC 31.2 g/dL (33-37); MCV 91.5 FL (81-99); MONO# 1.07 X1000 (0.11-0.59); MONO% 16.6 % (1.7-9.3); MPV 10.3 FL (7.4-10.4); PLT 378 X1000 (130-400); RBC 3.54 XMIL (4.7-6.1)
[2016-08-22 10:34] LABS: HEPATITIS PROFILE ACUTE SEE COMMENTS
[2016-08-22 10:48] LABS: BANDS 8 % (0-1); LARGE PLATELETS 1+; LYMPHS 12 % (21-51); MONO 4 % (1-9); NRBC 1 % (0-0)
[2016-08-22] MEDS ORDERED: LEVAQUIN 500 MG/D5W 500 MG/100 ML IVPB IV SCH (12:15)
[2016-08-22] MEDS ORDERED: BENADRYL IV ONE (12:36)
[2016-08-22] MEDS: NS 1,000 ML IV SCH (13:04)
[2016-08-22] MEDS: NORCO-5 PO PRN (16:19)
[2016-08-22] MEDS: PHENERGAN IV PRN ×2 (16:24→20:20)
--- NOTE | 2016-08-22 16:30 | Diag Imaging Result Doc PS360 ---
US RENAL 2 (RETROPER) COMPLETE - 08/22/2016 INDICATION: elevated creatinine TECHNIQUE: COMPARISON: Complete abdominal ultrasound yesterday FINDINGS: Both kidneys and urinary bladder are normal and unchanged from yesterday. IMPRESSION: No acute disease or change from prior. Electronically signed by Min Preciado 08/22/2016 4:27 PM
--- NOTE | 2016-08-22 18:26 | PROGRESS NOTE ---
DATE: 08/22/2016 SUBJECTIVE: Patient reports hurting all over because some of his home medications have been withheld. Denies any fever or chills. OBJECTIVE: Vital Signs: Temperature 98.2 degrees, heart rate 91, respiratory rate 16, blood pressure 133/72, O2 saturation 97% on room air. General: This is a 41-year-old male, lying in bed, in no acute distress. HEENT: Head is normocephalic, atraumatic. Anicteric sclerae and pale conjunctivae. Mucous membranes moist. Face looks puffy, consistent with a history of superior vena cava. Neck: Supple. No JVD noted. No carotid bruits. No lymphadenopathy. No thyromegaly. Cardiovascular: S1, S2 heard. No murmurs, gallops, or rubs. Regular rate and rhythm. Respiratory: Decreased air entry. No wheezing. No crepitations. Patient is not using any accessory muscles or having work of breathing. Abdomen: Soft, nontender to palpation. Bowel sounds present. No organomegaly. Extremities: No clubbing, cyanosis, or edema. Peripheral pulses present in both legs. Neurological: Patient alert and oriented x3. Moves 4 extremities. LABORATORY DATA: White count 6.46, hemoglobin 10.1, hematocrit 32.4, platelets 378,000. BMP remarkable for creatinine 3.5, BUN of 12. ASSESSMENT AND PLAN: 1. Altered mental status, possibly secondary to metabolic encephalopathy. That condition is completely resolved. It has been considered that this patient developed this problem because of prescription drug side effects. In any case, that condition is completely resolved. As per patient request, we are going to slowly restart some of his pain medications. 2. Hypertension on presentation, resolved. 3. Right middle lobe pneumonia. The patient was on vancomycin and Zosyn. Because of renal failure, I decided to stop vancomycin and Zosyn too. I started levofloxacin 500 mg IV q.24 hours. That can be switched at discharge to oral. 4. History of tachyarrhythmias, paroxysmal atrial fibrillation since tachycardia. Cardiology was following this patient. The patient is on Tambocor. Cardiology has signed off already. 5. History of superior vena cava syndrome, aware. 6. Transaminitis. The liver function tests had been checked yesterday, but not today. We are going to do it tomorrow. We will go from there. 7. Acute kidney injury. The creatinine was slowly decreasing before yesterday to yesterday, but from today it jumped from 1.3 to 3.5. We will consult Nephrology and we will go from there. cc: Jose Nicole MD
[2016-08-22] MEDS: PROTONIX IV SCH (20:20)
[2016-08-22] MEDS: OXYCONTIN PO SCH (20:20)
[2016-08-22] MEDS: CORTEF PO SCH (20:20)
[2016-08-23] MEDS: CARDIZEM PO SCH ×5 (00:38→22:45)
[2016-08-23] MEDS: NS 1,000 ML IV SCH ×6 (00:39→22:45)
--- NOTE | 2016-08-23 01:25 | CONSULTATION ---
DATE OF CONSULTATION: 08/22/2016 REASON FOR ADMISSION: Altered mental status. REASON FOR CONSULT: Acute kidney injury. CONSULTING PHYSICIAN: Dr. Mian Colon. The patient has no family physician. His oncologist is Dr. Sera Iqbal. His global account manager is Dr. Edie Sotomayor, rig mechanic is Dr. Mian Colon. HPI: Mr. Greenberg is a 41-year-old white male who has not been seen by our services in the past. Patient states that approximately 1 week ago he was admitted for community- acquired pneumonia. He states that he was discharged on and does not remember being discharged on any antibiotics or taking antibiotics. He did state that he has a history of Hodgkin lymphoma that is currently in remission. He was recently diagnosed a year ago with non-small cell lung cancer. He has a history of SVC syndrome with probably a Green filter placement, paroxysmal atrial fibrillation who is on chronic Eliquis. Subsequently, patient did state that he was discharged from the hospital with pneumonia on last . He states that he was feeling well and was urinating well. Sunday morning he started with some complaints of nausea not necessarily any severe diarrhea just a little bit of a loose stool. He stated that he did have some emesis, not much but felt this may be related to his recent Chemotherapy treatment. Unfortunately, Sunday morning he stated that he started with decreased urinary output and severe nausea and dry heaves. His found him unresponsive Sunday afternoon. It is unknown the cause of his unresponsiveness. EMS was called he was transported to [facility]. They performed a head CT that did not show any acute changes. Chest x-ray at that time did showing worsening infiltrates in right midlung zone and right perihilar prominence and worsening infiltrates on the right. It indicated that he had mild renal insufficiency. Baseline creatinine during his previous admission was noted at 1.0 to 1.3. Patient's blood pressure remained low. Subsequently, due to possible sepsis syndrome patient was admitted to ICU for further evaluation and toxic metabolic encephalopathy. During his ICU stay patient was treated with IV Cardizem. He was then transferred to [facility]. Patient was transferred at midnight on 08/21 after starting p.o. Cardizem and having his IV Cardizem discontinued at noon yesterday. It is noted that during his hospital admission indicated a baseline creatinine of 1. It has since increased to 3.2 and then 3.5 today which is noted. Patient is currently in 5 L positive fluid balance. During review of history he states that within 1 month he has just recently started on chemotherapy IV he states that he thought his nausea and vomiting was related to that. He also received 34 treatments of radiation 1 year ago whre his lung cancer was noted in the perihilar region. He states that he has been doing fairly well up until his recent admission for pneumonia last week. He is currently on the 3rd floor. He is up walking. He is going to the bathroom. He denies any chest pain. No increased work of breathing. He states that he still remains slightly nauseated though he has been trying to eat. He denies any emesis. No diarrhea. He states that his urine output has improved. He denies any fever or chills. PAST MEDICAL HISTORY: Noted for Hodgkin lymphoma which is currently in remission, [id number]-mzzr lung cancer diagnosed a year ago, 34 treatments of radiation and 1 treatment of chemotherapy in the last month. Patient has had SVC syndrome status post stenting x3, COPD, morbid obesity, hypertension, PAF, esophageal strictures with recent esophageal dilatation in the past month, esophagitis, gastritis, duodenitis chronic back pain with previous surgery. Patient states that he did have a previous port placed and it was removed secondary to having a blood clot beneath it within 2-3 months of placement. FAMILY HISTORY: There are cancers. Positive for cardiovascular disease. Negative for diabetes, negative for hypothyroid, negative for kidney. SOCIAL HISTORY: Patient is . He has a son who is 11 that lives with him. He is disabled. He is not working. Denies any tobacco, alcohol or illicit drug use though he does admit to strong exposure to secondhand smoke all his life. CURRENT ALLERGIES: To morphine, propoxyphene and tramadol. HOME MEDICATIONS: Eliquis, dexamethasone, Lunesta, Tambocor, fluconazole, Lasix , gabapentin, Gardners, Solu-Cortef, Ativan, Lopressor, Prilosec, Zofran, OxyContin, Paxil, hydrocodone, cough syrup REVIEW OF SYSTEMS: Times 10 with pertinent positives listed above in the HPI. VITAL SIGNS: Most recent. Temperature 98.2 degrees, blood pressure 133/72, heart rate 91, respirations 16. He is on room air. Last recorded saturation 97%. He has had 50 recorded in with 175 out though patient states that he has been voiding large amounts. He has also had IV fluids infusing with antibiotics. Patient remains 5 L positive as noted on his I's and O's. LABS: Sodium 143, potassium 4.4, chloride 101, CO2 23, BUN 12, creatinine 3.5. This is up from 1.3 yesterday. Glucose 117, anion gap 19, calcium 8.3. White count 6.46, hemoglobin 10.1, hematocrit 32.4 with a platelet count of 378,000. His random vancomycin level completed this a.m. is 23.7, blood cultures are negative. Patient had urinalysis positive for proteinuria, negative for bacteria or leukocytes, positive for granular casts. Toxicology showed positive opiates, positive oxycodone, positive benzodiazepines otherwise negative. These correlate with the patient's home medications. Patient has hepatitis profile that was negative. CT of the head which is negative for acute as mentioned above. Chest x-ray as mentioned above. PHYSICAL EXAMINATION: General: This is a 41-year-old white male. He is sitting on the side of the bed. He does not appear in any acute distress. Skin: Warm and dry. HEENT : Normocephalic, atraumatic. Conjunctiva is pink. He has PIEDAD. Mucous membranes are moist. Neck: Supple. Unable to determine JVD secondary to neck size and patient position on the side of the bed. Cardiovascular: Regular rate and rhythm. No murmur or gallop appreciated. Lungs: Clear to auscultation anteriorly. He is on room air. Equal excursion. He has diminished lung sounds secondary to body habitus. GI: Abdomen is soft, nontender. Positive bowel sounds. Genitourinary: Not inspected. Patient states that he has been walking to the bathroom to void. He has had an increase in his p.o. and urine output in the last 12 hours. Extremities: He continues with 1+ lower extremity slightly pitting edema. Pulses palpable. No clubbing or cyanosis. Neurological: Patient is alert and oriented x3. Integumentary: Patient has multiple tattoos over his upper chest and arms. No rashes or lesions evident. Skin is warm and dry. ASSESSMENT AND PLAN: 1. Acute kidney injury. This appears to be multifactorial. Patient has had atrial fibrillation with rapid ventricular response. He has also had hypotension with a fluid resuscitation. He has had intravenous antibiotic greater than normal baseline dose with vancomycin trough at 23.7. He has had recent dosing of chemotherapy for his nsp-ynbcy-rgch carcinoma of the lungs. He is now being treated for Sepsis Syndrome and has been on protocol in ICU. Patient was unresponsive, unknown cardiac rate at that time. Possible volume depletion. We have ordered a series of urine electrolytes. We will check urine for eosinophils. We have renal ultrasound that is currently pending. We have requested patient to keep an accurate I and O and the orders remain intact on the chart. We will continue to monitor and follow. 2. Sepsis syndrome. Patient has been on vancomycin. Again random vancomycin level trough is 23.7, these are currently being held, dosed by pharmacy. Zosyn continues. We will check for renal dosing. 3. Electrolytes. These remain stable. 4. Acid-base balance. This is stable. 5. Anemia. This remains low but stable. 6. Paroxysmal atrial fibrillation. Patient was recently taken off intravenous Cardizem yesterday afternoon approximately at this time. He has been on p.o. Cardizem. This is now rate controlled. He remains on telemetry. Troponins remain negative. 7. Pww-gzbea-qgrw lung cancer. This is followed by Hematology/Oncology. He remains on Solu- Cortef and prednisone with chronic steroid use. I would like to thank you for allowing us to follow with this patient. Seen, data reviewed, discussed with Ruslan Pham on o7. I agree with the above assessment and plan of care. rg Dictated by CRISTOBAL Rudolph for Karri Tavarez MD cc: CRISTOBAL Rudolph MD [facility]
[2016-08-23] MEDS: DUONEB (A & A) INH SCH ×6 (03:45→22:38)
[2016-08-23] MEDS: NORCO-5 PO PRN ×3 (04:34→17:58)
[2016-08-23] MEDS: PHENERGAN IV PRN ×2 (04:35→08:38)
[2016-08-23 05:30] LABS: URINE CULTURE NEEDED? NO; URINE MICRO REVIEW NEEDED? NO; URINE SOURCE CATH
[2016-08-23 05:39] LABS: BILIRUBIN URINE NEGATIVE (NEGATIVE); BLOOD URINE NEGATIVE (NEGATIVE); COLOR STRAW; GLUCOSE URINE NEGATIVE (NEGATIVE); LEUKOCYTES URINE NEGATIVE (NEGATIVE); NITRITE URINE NEGATIVE (NEGATIVE); PROTEIN URINE TRACE mg/dL (NEGATIVE); SP GRAVITY URINE 1.004; TURBIDITY URINE CLEAR (CLEAR); UROBILINOGEN URINE NORMAL (NORMAL)
[2016-08-23 05:40] LABS: UR EPITHELIAL CELLS <10 /HPF (<10); URINE BACTERIA NEGATIVE /HPF; URINE RBC <10 /HPF (<10); URINE WBC <10 /HPF (<10)
[2016-08-23 05:48] LABS: UR PROT RANDOM 14.9 mg/dL
[2016-08-23 07:00] LABS: BASO% 0.2 % (0.0-0.8); HEMATOCRIT 29.9 % (42.0-52.0); HEMOGLOBIN 9.2 g/dL (14.0-18.0); IMM GRAN# 0.42 X1000 (0.0-0.04); IMM GRAN% 8.8 % (0.0-0.5); LYMPH# 0.45 X1000 (1.2-3.4); LYMPH% 9.5 % (20.5-51.1); MANUAL DIFF NEEDED? YES; MCHC 30.8 g/dL (33-37); MCV 90.9 FL (81-99); MONO# 0.81 X1000 (0.11-0.59); MPV 9.5 FL (7.4-10.4); NEUT% 64.5 % (42.2-75.2); PLT 344 X1000 (130-400); RBC 3.29 XMIL (4.7-6.1)
[2016-08-23 07:28] LABS: CALCIUM 7.8 mg/dL (8.8-10.2); POTASSIUM 4.9 mmol/L (3.5-5.1)
[2016-08-23 07:40] LABS: BANDS 4 % (0-1); HYPOCHROM 1+; LYMPHS 16 % (21-51); MONO 8 % (1-9)
[2016-08-23] MEDS: OXYCONTIN PO SCH ×2 (08:36→20:48)
[2016-08-23] MEDS: DIFLUCAN PO SCH (08:37)
[2016-08-23] MEDS: DECADRON PO SCH (08:37)
[2016-08-23] MEDS: ELIQUIS PO SCH ×2 (08:37→20:49)
[2016-08-23] MEDS: ROBITUSSIN PO PRN (08:39)
--- NOTE | 2016-08-23 13:08 | PROGRESS NOTE ---
DATE: 08/23/2016 SUBJECTIVE: Mr. Greenberg is resting quietly in bed. He states that he does continue to have some chest discomfort mostly with inspiratory effort and any increased activity. He does deny any chest pain. OBJECTIVE/VITAL SIGNS: Most recent vital signs: Temperature 98.5 degrees, blood pressure 133/73, heart rate 93, respirations 14. He is on room air. Last recorded saturation 98 %. He has had 3550 in; he has had 500+ out void. LABS: Sodium 141, potassium 4.9, chloride 101 CO2 23, BUN 22, creatinine 4.9, glucose 136. His anion gap is 17. Calcium 7.8, magnesium 1.7. White count 4.76, hemoglobin 9.2 , hematocrit 29.9, with a platelet count of 344. Patient had negative urine eosinophils, fractionated urea score of 72.92% indicating intra renal with ATN. PHYSICAL EXAM: General: This is a 41-year-old, white male. He is currently resting in bed. He appears chronically ill. He is in no acute distress. Skin: Warm and dry. HEENT: Normocephalic, atraumatic. Conjunctivae pale. He has PIEDAD. Mucous membranes are moist. Neck: Supple. Trachea midline. No JVD. Cardiovascular: He is regular rate and rhythm. He is without murmur or gallop. Lungs: Clear to auscultation anterior. He does have coarse breath sounds to the right posterior base. He remains on room air. Equal excursion. Abdomen: Large, obese, soft, nontender. Positive bowel sounds. Genitourinary: Patient has been voiding. Adequate urine out. Requested that he keep a strict I and O. Neurological: Patient is alert and oriented x3. Extremities: Has 1+ lower extremity edema. No clubbing or cyanosis. ASSESSMENT AND PLAN: 1. Acute kidney injury. Again this is multifactorial with no singular cause noted at this time. Patient has an elevated fractionated urea score indicating that he has acute tubular necrosis. BUN and creatinine have elevated again today; creatinine is now 4.9. We have taken away all offensive medications. Labs are ordered for the a.m. Adequate urine out. No indications for intervention. 2. Electrolytes. These remain stable. 3. Acidosis this is stable. 4. Anemia. This remains low, but stable. 5. Unresponsiveness with lethargy. This has resolved. 6. Pneumonia. Patient remains on renal-dosed antibiotics. I would like to thank you for allowing us to follow with this patient. Seen, data reviewed, discussed with Ruslan Pham on 08/23/16. I agree with the above assessment and plan of care. rg Dictated by CRISTOBAL Rudolph for Karri Tavarez MD cc: CRISTOBAL Rudolph MD [facility]
--- NOTE | 2016-08-23 13:34 | PROGRESS NOTE ---
DATE: 08/23/2016 SUBJECTIVE: Patient reports feeling better after we restart some of his home medications. Denies any fever, chills. Mild itching reported yesterday, but today the patient is fine. OBJECTIVE: Vital Signs: Temperature 97.4 degrees, heart rate 91, respiratory 16, blood pressure 117/84, O2 saturation 100% on room air. General examination: This is a 41-year-old, male, lying in bed in no acute distress. HEENT: Head is normocephalic, atraumatic. Anicteric sclerae and pale conjunctivae. Mucous membranes moist. Face looks puffy, consistent with history of superior vena cava. Neck: Supple. No JVD noted. No carotid bruits. No lymphadenopathy. No thyromegaly. Cardiovascular exam: S1, S2 heard. No murmurs, gallops, or rubs. Regular rate and rhythm. Respiratory exam: Decreased air entry, but there is no wheezing and no crepitation. Patient is not using any accessory muscles or work of breathing. Abdomen: Soft, nontender to palpation. Bowel sounds present. No organomegaly. Extremities: No clubbing, cyanosis, or edema. Peripheral pulses present in both legs. Neurological exam: Patient alert and oriented x3. Moves 4 extremities. LABORATORY DATA: The renal function creatinine is today 4.9 with BUN of 22. ASSESSMENT AND PLAN: 1. Altered mental status, possibly secondary to metabolic encephalopathy. Condition is completely resolved. Patient is awake and alert. 2. Hypertension. On presentation that condition is resolved with blood pressure less than 130 most of the time. 3. Right middle lobe pneumonia. Patient was switched to levofloxacin 500 mg because of renal dysfunction. 4. History of tachyarrhythmias, paroxysmal atrial fibrillation and tachycardia. Cardiology was following this patient. 5. Patient is using Tambocor. Will continue with the same management. 6. History of superior vena cava syndrome, aware. 7. Transaminitis, aware. 8. Acute kidney injury. Unfortunately, the creatinine continues to rise and yesterday 3.5 and today 4.9. Nephrology is already on board. We will follow recommendations. cc: Jose Nicole MD
[2016-08-23] MEDS: TAMBOCOR PO SCH (14:55)
[2016-08-23] MEDS: LEVAQUIN 250 MG/D5W 250 MG/50 ML IVPB IV SCH (17:51)
[2016-08-23] MEDS ORDERED: BENADRYL PO ONE (19:42)
[2016-08-23] MEDS: PROTONIX IV SCH (20:47)
[2016-08-23] MEDS: SODIUM CHLORIDE 0.9% INJ SCH (20:47)
[2016-08-23] MEDS: MELATONIN PO SCH (20:48)
[2016-08-23] MEDS: CORTEF PO SCH (20:49)
[2016-08-24] MEDS: NORCO-5 PO PRN ×2 (01:44→09:48)
[2016-08-24] MEDS: DUONEB (A & A) INH SCH ×6 (03:37→23:11)
[2016-08-24] MEDS: NS 1,000 ML IV SCH (05:20)
[2016-08-24] MEDS: CARDIZEM PO SCH ×5 (05:20→22:16)
[2016-08-24 07:21] LABS: CALCIUM 8.4 mg/dL (8.8-10.2); POTASSIUM 4.7 mmol/L (3.5-5.1); RANDOM VANCOMYCIN 13.9 ug/mL (5.0-80)
[2016-08-24] MEDS ORDERED: LASIX IV ONE (08:06)
[2016-08-24 08:41] LABS: ALLEN TEST YES; BE -4.5 mmoll (-3.0-3.0); BLOOD TYPE ARTERIAL; DRAW SITE L RADIAL; MODALITY ROOM AIR; PCO2(98.6) 35 mmHg (35-45); PO2(98.6) 76 mmHg (60-100); SAMPLE BLOOD; SAO2 98.9 % (95.0-100.0); THB 11.1 g/dL (11.5-17.4); pH(98.6) 7.37 (7.35-7.45)
--- NOTE | 2016-08-24 08:53 | Diag Imaging Result Doc PS360 ---
EXAM: CHEST-PORTABLE INDICATION: sudden onset sob TECHNIQUE: One view COMPARISON: 08/21/2016 FINDINGS: Inspiration is suboptimal. The dense right perihilar infiltrate persists. Given differences in inspiration, it is approximately stable. No new consolidation is appreciated. Cardiac silhouette is stable. IMPRESSION: Essentially stable right perihilar consolidation. Electronically signed by Richi Clayton 08/24/2016 8:51 AM
--- NOTE | 2016-08-24 09:13 | EKG Report ---
Test Performed on : 08/24/2016 08:14:40 AM Test Reason : sob Blood Pressure : / mmHG Vent. Rate : 095 BPM Atrial Rate : 095 BPM P-R Int : 232 ms QRS Dur : 112 ms QT Int : 384 ms P-R-T Axes : 044 038 064 degrees QTc Int : 482 ms Sinus rhythm. with 1st degree AV block. Cannot rule out Inferior infarct (cited on or before 15-AUG-2016) Abnormal ECG When compared with ECG of 20-AUG-2016 21:08, AL interval has increased Vent. rate has decreased BY 62 BPM Questionable change in QRS axis Serial changes of evolving Inferior infarct present Confirmed by Ray Han MD ([id number]) on 08/24/2016 12:51:34 PM
[2016-08-24] MEDS: ELIQUIS PO SCH ×2 (09:43→20:54)
[2016-08-24] MEDS: OXYCONTIN PO SCH ×2 (09:43→20:53)
[2016-08-24] MEDS: DECADRON PO SCH (09:43)
[2016-08-24] MEDS: DIFLUCAN PO SCH (09:43)
[2016-08-24] MEDS: TAMBOCOR PO SCH (09:43)
[2016-08-24] MEDS: ROBITUSSIN PO PRN (09:49)
[2016-08-24 11:01] LABS: BASO% 0.9 % (0.0-0.8); HEMATOCRIT 31.7 % (42.0-52.0); HEMOGLOBIN 9.8 g/dL (14.0-18.0); IMM GRAN# 0.62 X1000 (0.0-0.04); IMM GRAN% 8.4 % (0.0-0.5); LYMPH# 0.39 X1000 (1.2-3.4); LYMPH% 5.3 % (20.5-51.1); MANUAL DIFF NEEDED? YES; MCH 28.2 PG (27-31); MCHC 30.9 g/dL (33-37); MCV 91.4 FL (81-99); MONO# 1.16 X1000 (0.11-0.59); MONO% 15.7 % (1.7-9.3); MPV 9.9 FL (7.4-10.4); NEUT% 69.7 % (42.2-75.2); PLT 381 X1000 (130-400); RBC 3.47 XMIL (4.7-6.1)
[2016-08-24 11:16] LABS: LYMPHS 7 % (21-51); MONO 6 % (1-9)
[2016-08-24] MEDS: NORCO-7.5 PO PRN ×3 (13:49→23:53)
[2016-08-24] MEDS: PHENERGAN IV PRN ×2 (13:50→18:48)
--- NOTE | 2016-08-24 14:02 | PROGRESS NOTE ---
DATE: 08/24/2016 TIME SEEN: 0830. SUBJECTIVE: Mr. Greenberg is resting quietly in bed. He has complaints of mild distress. No increased work of breathing, though he states that he feels swollen all over. He has noted that he has increased tremors. Patient does state that he does have mild shortness of breath with mild exertion. Otherwise, he continues with chronic midsternal pain that he feels is noncardiac but associated with his lung cancer. OBJECTIVE: Vital Signs: His most recent vital signs are temperature 97.3 degrees, blood pressure 122/75, heart rate 98, respirations 18. He is actually on room air. His last recorded saturation is 100%. He has had 2280 in. He has had 1500 out. Patient is 8 L positive in the last 72 hours. General: This is a 41-year-old white male who is resting in bed. He is in mild distress. He does appear chronically ill. Skin: Warm and dry. is at the bedside with the patient. HEENT: Normocephalic and atraumatic. Conjunctivae pale. He has PIEDAD. Mucous membranes are moist. Neck: Supple. Trachea midline. No JVD. Cardiovascular: Regular rate and rhythm. He is without murmur or gallop. Lungs: Clear to auscultation anteriorly. Equal excursion. Patient is on room air. Abdomen: Large, round, soft, nontender. Positive bowel sounds. Genitourinary: Patient has been voiding adequate amount, greater amount of 1.5 L in the past 24 hours. Integumentary: Patient had a fine red rash to the upper chest, nonpalpable. The patient denies itching. No other further rashes or lesions present. He continues with tattoos to the upper chest wall and upper arms. Neurologic: He is alert and oriented x3. Patient does have some fine tremor at rest, gross with movement. LABORATORIES: Sodium 137, potassium 4.7, chloride 101, CO2 of 23, BUN 30, creatinine 4.5. His glucose is 123. Anion gap 13. Calcium 8.4. Previous hemoglobin 9.2. Patient has ABGs and a chest x-ray ordered this morning, these are pending. ASSESSMENT AND PLAN: 1. Acute kidney injury. Again, this is multifactorial. Patient had an elevated fractionated urea score yesterday of 72.92%. He has been on large amounts of IV fluids of normal saline. He is now 8 L positive, as noted. We will saline lock his IV. We will give him 40 mg of Lasix. We have requested that he keep a strict I and O. His BUN and creatinine have improved today, with a creatinine of 4.5, down from 4.9. He continues to make adequate urine. No further need for intervention. 2. Electrolytes. These remain stable. 3. Acidosis. This remains stable with narrowing of his anion gap. 4. Anemia. This remains low, but stable. 5. Pneumonia. Patient is on renal-dosed antibiotics, followed by the Primary Care team. Patient does have ABGs and a chest x-ray ordered for this a.m. I would like to thank you for allowing us to follow with this patient. Seen, data reviewed, discussed with Ruslan Pham on 08/24/16. I agree with the above assessment and plan of care. rg Dictated by CRISTOBAL Rudolph for Karri Tavarez MD cc: CRISTOBAL Rudolph MD [facility]
[2016-08-24] MEDS: LEVAQUIN 250 MG/D5W 250 MG/50 ML IVPB IV SCH (14:05)
--- NOTE | 2016-08-24 15:25 | PROGRESS NOTE ---
DATE: 08/24/2016 SUBJECTIVE: Patient reports feeding some swelling in the right thigh, some transient shortness of breath. No fever or chills. OBJECTIVE: Vital Signs: Temperature 97.2 degrees, heart rate 95, respiratory rate 20, blood pressure 108/59, O2 saturation 99% on room air. General examination: This is a 41-year-old male, lying in bed in no acute distress. HEENT: Head is normocephalic, atraumatic. Anicteric sclerae and pale conjunctivae. Mucous membranes moist. The face looks puffy consistent with history of superior vena cava. Neck: Supple. No JVD noted. No carotid bruits. No lymphadenopathy. No thyromegaly. Cardiovascular exam: S1, S2 heard. No murmurs, gallops, or rubs. Regular rate and rhythm. Respiratory exam: Decreased air entry. No crepitations or wheezing noted. Patient is not using any accessory muscles or having work of breathing. Abdomen: Soft, nontender to palpation. Bowel sounds present. No organomegaly. Extremities: No clubbing, cyanosis, or edema. Peripheral pulses present in both legs. Neurological exam: Patient is alert and oriented x3. Moves 4 extremities. LABORATORY DATA: White cell count 7.4, hemoglobin 9.8, hematocrit 31.7, platelets 381. ABG was completely unremarkable and the BMP shows creatinine 4.5. ASSESSMENT AND PLAN: 1. Altered mental status, resolved. 2. Hypertension, resolved. 3. Right middle lobe pneumonia under treatment. The patient is receiving levofloxacin 500 mg oral daily because of renal dysfunction. 4. History of tachyarrhythmia, stable. No new arrhythmias. The patient is on telemetry. We will continue with Tambocor. 5. History of superior vena cava. Aware. 6. Acute kidney injury. The creatinine started to go down today to 4.5. The patient is making good urine. So, if tomorrow there are no new recommendations from nephrology and they are okay to let this patient go, will discharge this patient. cc: Jose Nicole MD
[2016-08-24] MEDS: SODIUM CHLORIDE 0.9% INJ SCH (20:53)
[2016-08-24] MEDS: CORTEF PO SCH (20:53)
[2016-08-24] MEDS: PROTONIX IV SCH (20:53)
[2016-08-24] MEDS: MELATONIN PO SCH (20:54)
[2016-08-25] MEDS: DUONEB (A & A) INH SCH ×6 (03:53→22:48)
[2016-08-25] MEDS: NORCO-7.5 PO PRN ×4 (04:25→17:36)
[2016-08-25] MEDS: CARDIZEM PO SCH ×4 (04:26→22:02)
[2016-08-25 06:21] LABS: CALCIUM 8.7 mg/dL (8.8-10.2); POTASSIUM 5.3 mmol/L (3.5-5.1)
[2016-08-25 08:14] LABS: BASO% 1.2 % (0.0-0.8); HEMOGLOBIN 9.6 g/dL (14.0-18.0); IMM GRAN# 0.91 X1000 (0.0-0.04); IMM GRAN% 9.1 % (0.0-0.5); LYMPH# 0.53 X1000 (1.2-3.4); LYMPH% 5.3 % (20.5-51.1); MANUAL DIFF NEEDED? YES; MCH 28.3 PG (27-31); MCV 91.4 FL (81-99); MONO# 1.12 X1000 (0.11-0.59); MONO% 11.2 % (1.7-9.3); MPV 10.1 FL (7.4-10.4); NEUT% 73.2 % (42.2-75.2); PLT 361 X1000 (130-400); RBC 3.39 XMIL (4.7-6.1)
[2016-08-25] MEDS: TAMBOCOR PO SCH (08:47)
[2016-08-25] MEDS: OXYCONTIN PO SCH ×2 (08:49→21:19)
[2016-08-25] MEDS: DECADRON PO SCH (08:49)
[2016-08-25] MEDS: ELIQUIS PO SCH ×2 (08:49→21:19)
[2016-08-25] MEDS: DIFLUCAN PO SCH (08:49)
[2016-08-25] MEDS: PHENERGAN IV PRN (08:50)
[2016-08-25 08:58] LABS: BANDS 4 % (0-1); LYMPHS 10 % (21-51); MONO 11 % (1-9)
[2016-08-25 09:04] LABS: HYPOCHROM 1+
[2016-08-25] MEDS ORDERED: LASIX IV ONE (09:35)
--- NOTE | 2016-08-25 09:48 | PROGRESS NOTE ---
DATE: 08/25/2016 SUBJECTIVE: He states he feels about the same. Still having some shortness of breath, but not worse. His swelling he states is about the same as well. It is significantly greater than his usual swelling that he experiences at home. OBJECTIVE: Vital Signs: Blood pressure 124/75, heart rate 131, respiration 18, afebrile. Intake 4.4 L; output 3.1 L. General: On physical exam, no acute distress. Skin: Warm and dry. He has a faint rash on the chest. Eyes: Conjunctivae are pink. Pupils are equal. Neck: Neck veins are not appreciated. Heart: Somewhat distant and tachycardic. Lungs: Have equal breath sounds. No crackles or wheezes. Abdomen: Obese and soft. Bowel sounds are present. Extremities: Have 2+ edema. No clubbing or cyanosis. LABORATORY DATA: Sodium 140, potassium 5.3, chloride 104, bicarbonate 22, BUN 34 and creatinine 4.6. IMPRESSION: 1. Acute kidney injury. Labs are stable over the last 24 hours. Urine output is good, but he was still in positive fluid balance. I have asked him to restrict his fluids to about a quart a day. The nursing staff states he is drinking much more than what they have been able to document. He is not currently on diuretics, but again with his excellent urine output I think simply restricting fluids is all that is necessary. 2. Electrolytes. Acceptable. 3. Acid base, stable. cc: Karri Tavarez MD
[2016-08-25] MEDS: HYDROXYZINE PO PRN (13:24)
[2016-08-25] MEDS: LEVAQUIN 250 MG/D5W 250 MG/50 ML IVPB IV SCH (13:25)
--- NOTE | 2016-08-25 14:31 | PROGRESS NOTE ---
DATE: 08/25/2016 SUBJECTIVE: Patient reports feeling fine. Sometimes shortness of breath occasionally. No fever or chills reported. OBJECTIVE: Vital Signs: Temperature 97.6 degrees, heart rate 104, respiratory rate 13, blood pressure 131/77 and O2 saturation 100% on room air. General: This is a 41-year-old male, lying in bed, in no acute distress. HEENT: Head is normocephalic, atraumatic. Anicteric sclerae and pale conjunctivae. Mucous membranes moist. The face looks puffy consistent with history of superior vena cava. Neck supple. No JVD noted. No carotid bruits. No lymphadenopathy. No thyromegaly. Cardiovascular: S1, S2 heard. No murmurs, gallops, or rubs. Regular rate and rhythm. Respiratory: Decreased air entry. There is no crepitation. Mild wheezing noted and some crackles in both bases. Patient is not using any accessory muscles or work of breathing. Abdomen is soft, nontender to palpation. Bowel sounds present. No organomegaly. Extremities: No clubbing, cyanosis, or edema. Peripheral pulses present in both legs. Neurologic: Patient alert oriented x3. Moves 4 extremities. LABORATORY DATA: White cell count 9.98, hemoglobin 9.6, hematocrit 31.0, platelets 361,000. The BMP shows creatinine 4.6 and BUN 34, with creatinine with potassium 4.3. ASSESSMENT AND PLAN: 1. Acute kidney injury. This patient's creatinine is around 4.6. He is still making good urine. Dr. Tavarez from Nephrology is following this patient and prefers to keep this patient over the weekend monitoring carefully In and Out. Will follow recommendations. 2. Right middle lobe pneumonia under treatment. The patient is on levofloxacin 500 mg p.o. daily. Because of renal dysfunction, we will continue with same management. He is having transient shortness of breath and although it is not clear in the last x-ray that we have that there is some vascular congestion, I prefer to give 1 dose of Lasix and see how he does. 3. Altered mental status, resolved. 4. Hypertension. Blood pressure is within normal limits. 5. superior vena cava, aware. 6. History of tachyarrhythmia. His condition now is stable. No arrhythmia reported via telemetry. cc: Jose Nicole MD
[2016-08-25] MEDS: CORTEF PO SCH (21:18)
[2016-08-25] MEDS: MELATONIN PO SCH (21:20)
[2016-08-25] MEDS: PROTONIX IV SCH (21:21)
[2016-08-25] MEDS: SODIUM CHLORIDE 0.9% INJ SCH (21:21)
[2016-08-26] MEDS: NORCO-7.5 PO PRN ×2 (01:13→06:18)
[2016-08-26] MEDS: DUONEB (A & A) INH SCH ×6 (03:39→22:34)
[2016-08-26] MEDS: CARDIZEM PO SCH ×4 (06:18→22:35)
[2016-08-26] MEDS: PHENERGAN IV PRN (06:20)
[2016-08-26 06:48] LABS: CALCIUM 8.7 mg/dL (8.8-10.2); POTASSIUM 5.3 mmol/L (3.5-5.1)
[2016-08-26] MEDS: OXYCONTIN PO SCH ×2 (08:43→20:51)
[2016-08-26] MEDS: DIFLUCAN PO SCH (08:44)
[2016-08-26] MEDS: ELIQUIS PO SCH ×2 (08:44→20:51)
[2016-08-26] MEDS: DECADRON PO SCH (08:44)
[2016-08-26] MEDS: TAMBOCOR PO SCH (08:44)
[2016-08-26] MEDS: NORCO-10 PO PRN ×4 (11:23→22:37)
[2016-08-26] MEDS: LASIX IV ONE ×2 (11:41→12:05)
[2016-08-26] MEDS: LEVAQUIN 250 MG/D5W 250 MG/50 ML IVPB IV SCH (12:12)
--- NOTE | 2016-08-26 12:26 | PROGRESS NOTE ---
DATE: 08/26/2016 SUBJECTIVE: Patient reports still hurting, although shortness of breath that he was having during the last few days is no longer present. OBJECTIVE: Vital Signs: Temperature 97.7 degrees, heart rate 116, respiratory rate 14, blood pressure 137/78, O2 saturation 99% on room air. General: This is a 41-year-old male, lying in bed in no acute distress. HEENT: Head is normocephalic, atraumatic. Anicteric sclerae and pale conjunctivae. Mucous membranes moist. Face looks puffy, consistent with history of superior vena cava. Neck: Supple. No JVD noted. No carotid bruits. No lymphadenopathy. No thyromegaly. Cardiovascular: S1 and S2 heard. No murmurs, gallops, or rubs. Regular rate and rhythm. Respiratory: Decreased air entry, but there is no crepitation. Mild wheezing, definitely better when comparing with previous days, noted in both bases. Some crackles, as well. The patient is not using any accessory muscles or having work of breathing. Abdomen: Soft, nontender to palpation. Bowel sounds present. No organomegaly. Extremities: No clubbing, cyanosis, or edema. Peripheral pulses present in both legs. Neurological: The patient is alert and oriented x3. Moves 4 extremities. LABORATORY DATA: BMP shows creatinine 4.0. ASSESSMENT AND PLAN: 1. Acute right middle lobe pneumonia. The condition is under treatment. The patient is currently receiving levofloxacin and today is day #5. Before that, he was on vancomycin and Zosyn. Those medications were discontinued because of renal dysfunction. In any case, and he is responding to the therapy. We are planning to keep this patient over the weekend and on Sunday I think this patient will not need any more antibiotics for this infection. 2. Acute kidney injury. The creatinine today is 4.0. The patient is making a good amount of urine, about [address] Tavarez is following this patient and, as per his recommendation, we are going to keep this patient over the weekend and see have his creatinine does. Otherwise, he can be discharged on Sunday. 3. Altered mental status. Resolved. 4. Hypertension. Blood pressure is within normal limits. 5. History of superior vena cava. Aware. 6. History of tachyarrhythmias. Stable. cc: Jose Nicole MD
--- NOTE | 2016-08-26 13:09 | PROGRESS NOTE ---
DATE: 08/26/2016 SUBJECTIVE: They are very concerned today about swelling. He has been up and sitting in the chair and, when he got up and transferred, that noticed that his flanks were significantly swollen. Ongoing lower extremity swelling as well. No particular shortness of breath or chest discomfort. He is able to eat. OBJECTIVE: Vital Signs: Blood pressure 137/78, heart rate 116, respirations 14, afebrile. Intake 1 L. Output 3.1 L. PHYSICAL EXAMINATION: He is in no acute distress. Skin is warm and dry. Conjunctivae are pink. Neck veins are not visible. Heart is regular without gallops or murmurs. Lungs have equal breath sounds. No dullness, crackles, wheezes. Abdomen is obese and soft. Bowel sounds are present. Extremities have 2 to 3+ edema, and he does have flank edema as well. No clubbing or cyanosis. LABORATORY DATA: Sodium 140, potassium 5.3, chloride 102, bicarbonate 24. BUN 39, creatinine 4.0, hemoglobin 9.6. IMPRESSION: 1. Acute kidney injury. Continued slow improvement in his creatinine. Down to 4 today; 4.9 on 08/23/2016. He has excellent urine output over the last 2 days and has done a good job with fluid restriction such that he was negative 2 L over the last 24 hours. I encouraged him to continue to restrict his fluids, and we will continue his treatment as ordered. He did receive a single dose of furosemide 80 mg yesterday, so I will repeat that today. 2. Electrolytes are acceptable. 3. Congestive heart failure. He does not really have pulmonary symptoms, so we will continue to manage conservatively as we are. cc: Karri Tavarez MD
[2016-08-26] MEDS: MELATONIN PO SCH (20:50)
[2016-08-26] MEDS: SODIUM CHLORIDE 0.9% INJ SCH (20:51)
[2016-08-26] MEDS: PROTONIX IV SCH (20:51)
[2016-08-26] MEDS: CORTEF PO SCH (20:51)
[2016-08-26] MEDS: HYDROXYZINE PO PRN (20:56)
[2016-08-27] MEDS: NORCO-10 PO PRN ×4 (02:27→23:36)
[2016-08-27] MEDS: DUONEB (A & A) INH SCH ×6 (03:18→22:52)
[2016-08-27] MEDS: CARDIZEM PO SCH ×5 (04:11→23:16)
[2016-08-27 07:00] LABS: CALCIUM 8.8 mg/dL (8.8-10.2); POTASSIUM 4.9 mmol/L (3.5-5.1)
[2016-08-27] MEDS: ELIQUIS PO SCH ×2 (09:15→21:09)
[2016-08-27] MEDS: DIFLUCAN PO SCH (09:15)
[2016-08-27] MEDS: OXYCONTIN PO SCH ×2 (09:16→21:09)
[2016-08-27] MEDS: DECADRON PO SCH (09:16)
[2016-08-27] MEDS: TAMBOCOR PO SCH (09:16)
[2016-08-27] MEDS: LEVAQUIN 250 MG/D5W 250 MG/50 ML IVPB IV SCH (12:27)
--- NOTE | 2016-08-27 16:59 | PROGRESS NOTE ---
DATE: 08/27/2016 SUBJECTIVE: Patient reports feeling fine. The pain is better controlled. Denies any fever or shortness of breath. OBJECTIVE: Vital Signs: Temperature 97.6 degrees, heart rate 102, respiratory 22, blood pressure 126/89, O2 saturation 98% on room air. General Examination: This is a 41-year-old male, lying in bed, in no acute distress. HEENT: Head is normocephalic, atraumatic. Anicteric sclerae and pale conjunctivae. Mucous membranes moist. Face looks puffy, consistent with history of superior vena cava. Neck: Supple. No JVD noted. No carotid bruits. No lymphadenopathy. No thyromegaly. Cardiovascular: S1, S2 heard. No murmurs, gallops, or rubs. Regular rate and rhythm. Respiratory: Decreased air entry. There is no crepitation, just mild wheezing, better in comparing with previous days. The patient is not using any accessory muscles or having work of breathing. Abdomen: Soft. Nontender to palpation. Bowel sounds present. No organomegaly. Extremities: No clubbing, cyanosis, or edema. Peripheral pulses present in both legs. Neurological: Patient is alert and oriented x3. Able to move 4 extremities. Cranial nerves 2 through are grossly normal. LABORATORY DATA: Creatinine today is 3.5. ASSESSMENT AND PLAN: 1. Acute right middle lobe pneumonia. Patient is clinically feeling better. Requiring no oxygen supplementation. Patient's white cell count is within normal limits. Patient is receiving levofloxacin. Today is #6 of this medication. He was receiving vancomycin and Zosyn before. Those medications have been discontinued because of renal dysfunction. Upon discharge we are going to prescribe this medication orally to complete 10 days of total treatment. 2. Acute kidney injury. Today creatinine is 3.5, which is an improvement from 4.0 yesterday. The patient is making a good amount of urine. The patient can be discharged home when cleared by nephrology. 3. Altered mental status, resolved. 4. Hypertension. Blood pressure within normal limits. 5. History of superior vena cava. Aware. 6. History of tachyarrhythmias. Stable. cc: Jose Nicole MD
[2016-08-27] MEDS: HYDROXYZINE PO PRN (21:09)
[2016-08-27] MEDS: MELATONIN PO SCH (21:09)
[2016-08-27] MEDS: CORTEF PO SCH (21:10)
[2016-08-28] MEDS: DUONEB (A & A) INH SCH ×2 (03:30→07:33)
[2016-08-28] MEDS: CARDIZEM PO SCH (04:45)
[2016-08-28] MEDS: NORCO-10 PO PRN ×2 (04:45→09:58)
[2016-08-28] MEDS: ROBITUSSIN PO PRN (05:58)
[2016-08-28] MEDS ORDERED: PROTONIX PO SCH (07:00)
[2016-08-28 07:19] LABS: CALCIUM 9.4 mg/dL (8.8-10.2); POTASSIUM 5.3 mmol/L (3.5-5.1)
[2016-08-28 07:46] VITALS: BP 140/87
--- NOTE | 2016-08-28 08:54 | PROGRESS NOTE ---
DATE: 08/28/2016 SUBJECTIVE: Mr. Greenberg was resting quietly in bed. Head of the bed is elevated. He states that he has not recently been out of bed since yesterday evening. He slept well. Denies chest pain or increased work of breathing. OBJECTIVE: Vital Signs: His most recent vital signs, temperature 97.7 degrees , blood pressure 140/87, heart rate 98, respirations 11. He is on room air. Last recorded saturation 97%. He has had 240 in. He has had 3350 out per void. Laboratory Data: Sodium 141, potassium 5.3, chloride is 99, CO2 20, BUN 44, creatinine 2.9, glucose is 120, anion gap 12, calcium 9.4, phosphorus 4.8, albumin 4. Previous hemoglobin 9.6 on the . Physical Examination: General: This is a 41-year-old, white male. He is resting quietly in bed. He is in no acute distress. Skin: Warm and dry. HEENT: Normocephalic, atraumatic. Conjunctiva are pink. He has PIEDAD. Mucous membranes are moist. Neck: Supple. Trachea midline. No JVD. Cardiovascular: He has regular rate and rhythm. He is without murmur or gallop. Lungs: Clear to auscultation anteriorly. Equal excursion on room air. Abdomen: Large, obese, soft, nontender. Positive bowel sounds. Extremities: Continues with 2 to 3+ lower extremity edema up into the mid abdominal/flank area. No clubbing or cyanosis present. Neurological: Alert and oriented x3. ASSESSMENT: 1. Acute kidney injury. Patient continues to show a slow improvement. Creatinine is down to 2.9 from 3.5. He remains on a 1.5 L fluid restriction. He is in a -3 L fluid balance today. The patient did not receive any Lasix yesterday, though he did receive Lasix the day before. 2. Electrolytes. These are stable. 3. Acid-base balance. This is stable. 4. Anemia. This is low but stable. PLAN: The patient and his state that he feels that he is ready to go home. We have indicated that this is up to the primary care team. If he is discharged, he has at [facility] who come to the home for home health assistance. It is indicated that we can monitor his labs on a weekly basis and see the patient in our office within 2-3 weeks of discharge. I would to thank you for allowing us to follow with this patient. Seen, data reviewed, discussed with Ruslan Pham on 08/28/16. I agree with the above assessment and plan of care. rg Dictated by CRISTOBAL Rudolph for Karri Tavarez MD cc: CRISTOBAL Rudolph MD [facility]
[2016-08-28] MEDS ORDERED: LEVAQUIN PO SCH (09:00)
[2016-08-28] MEDS: TAMBOCOR PO SCH (09:49)
[2016-08-28] MEDS: OXYCONTIN PO SCH (09:49)
[2016-08-28] MEDS: DIFLUCAN PO SCH (09:50)
[2016-08-28] MEDS: DECADRON PO SCH (09:50)
[2016-08-28] MEDS: ELIQUIS PO SCH (09:58)
--- NOTE | 2016-08-29 14:02 | DISCHARGE SUMMARY ---
ADMISSION DATE: 08/19/2016 DISCHARGE DATE: 08/28/2016 CONSULTATIONS: 1. Dr. Edie Sotomayor with Gastroenterology. 2. Dr. Mohan with Hematology/Oncology. 3. CRISTOBAL Huerta with Nephrology. PERTINENT PROCEDURES: 1. Head CT showed no hemorrhage. Negative brain CT without contrast. 2. Chest x-ray showed interval worsening of infiltrates in the mid right lung. Right perihilar prominence persists. Heart is enlarged. 3. Abdominal ultrasound showed diffusely increased echotexture of the liver, suggesting hepatic steatosis, mild splenomegaly. 4. Renal ultrasound showed no acute disease or change from prior. 5. Final chest x-ray showed essentially stable right perihilar consolidation. DISCHARGE DIAGNOSES: 1. Acute kidney injury with slow improvement. Creatinine is down to 2.9. The patient remains on 1.5 L fluid restriction. Electrolytes, acid-base, and anemia remain stable. Will follow up with Dr. Tavarez for laboratory work on 09/18/2016 at 9 a.m. Stable. 2. Acute right middle lobe pneumonia. Clinically, the patient has improved. She is being discharged on p.o. antibiotics. 3. Toxic metabolic encephalopathy. Resolved. 4. Hypertension. Improved. 5. Tachycardia secondary to infectious process. The patient was treated accordingly and continued on antiarrhythmics. The patient has remained in sinus rhythm. No signs of atrial fibrillation. 6. Sepsis. Resolved. 7. Non-small cell lung cancer, followed by Hematology/Oncology. Treatment was placed on hold. Will follow up after discharge. 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 9. Chronic steroid use. 10. Hodgkin lymphoma history. HOSPITAL COURSE: Mr. Greenberg is a 41-year-old male who carries a past medical history of Hodgkin lymphoma, in remission, non-small cell lung cancer, SVC syndrome status post stenting, COPD, morbid obesity, hypertension, PAF, esophageal stricture, esophagitis, gastritis, duodenitis, chronic pain on heavy amounts of narcotic therapy, recently discharged on 08/17/2016. He was diagnosed with recurrent non-small cell lung cancer, dysphagia, esophageal stricture, and tachycardia. He was discharged home after having an EGD by Dr. Sotomayor. On the day of his admission, apparently, he was at home, throwing up, and possibly took too much Phenergan and became altered, and was sent to the ED. He had a CT of the head done that did not show anything acute. A chest x-ray showed worsening infiltrates in the right mid lung zone with right perihilar prominence. Lab work showed anemia, mild respiratory acidosis, and a mild acute kidney injury. His blood pressure was low. He was tachycardic with a low-grade temperature. He was admitted to the ICU for sepsis and toxic metabolic encephalopathy. Blood cultures were obtained. He was started on vancomycin and Zosyn. He was also found to have an acute kidney injury. He was started on fluid resuscitation. Hematology was consulted. His treatments were placed on hold during his acute illness. The patient had an increase in his creatinine as well as being 5 L positive in his fluid balance. Nephrology was consulted. He had been within 1 month of recently being started on chemotherapy IV. His acute kidney injury was felt to be multifactorial, given his hypotension as well as his vancomycin trough level being at 23.7, and given his recent dosing of chemotherapy and a fluid volume depletion. The patient also had episodes of tachycardia, when he was treated with IV Cardizem; however, he was not in atrial fibrillation. He was transitioned to p.o. Cardizem and moved to [facility], and continued on his antiarrhythmics. The patient was initiated on IV Lasix by Nephrology as well as placed on strict I's and O's and daily weights. He was making adequate urine. His electrolytes, acidosis, and anemia remained stable. He was making adequate urine. He was placed on a 1.5 L fluid restriction. His altered mental status did improve. His antibiotics were changed to p.o. Levaquin. His creatinine is down to 2.9. The patient was kept here over the weekend. The patient and his feel that they are appropriate to go home today. We will have Electric Shovel Operator contact his palliative care team who comes to his home for health junior assistant manager, and Dr. Tavarez's office will continue to monitor his labs on a weekly basis and see his office in 2-3 weeks of discharge to continue to monitor his kidney function, and he will remain on a 1.5 L fluid restrictions. VITAL SIGNS ON DISCHARGE: Temperature is 97.7 degrees, heart rate 98, respirations 20, blood pressure 140/87, and O2 is 97% on room air. DISCHARGE DIET: Renal. DISCHARGE MEDICATIONS: As per Dr. Clemons. 1. Eliquis 5 mg p.o. b.i.d. 2. Dexamethasone 4 mg p.o. daily. 3. Cardizem CD 240 mg p.o. daily. 4. Lunesta 3 mg p.o. at bedtime. 5. Flecainide 50 mg p.o. daily. 6. Lasix 20 mg p.o. daily ordered. 7. Gabapentin 600 mg p.o. at bedtime. 8. [place] 10/325 one to 2 each p.o. q.4 hours p.r.n. 9. Solu-Cortef 10 mg p.o. at bedtime. 10. Hydroxyzine 50 mg p.o. q.4 hours. 11. Levaquin 250 mg p.o. daily. 12. p.o. at bedtime. 13. Lopressor 100 mg p.o. q.a.m. 14. Prilosec 40 mg p.o. daily. 15. Zofran 8 mg p.o. daily. 16. OxyContin 50 mg p.o. b.i.d. 17. Paxil 20 mg p.o. daily. 18. Promethazine HCL codeine 5 mL p.o. p.r.n. 19. Fluconazole 100 mg p.o. daily. FOLLOWUP: The patient is being discharged home with his , where he will continue to get followup with Palliative Care. He will follow up with Dr. Tavarez on 09/18/2016 at 9 a.m. as well as with Dr. Sera Iqbal to discuss when he will start back on his outpatient treatment. DISCHARGE INSTRUCTIONS: He will follow a 1.5 L fluid restriction. Patient can return to the ED for any worsening of symptoms. Dictated by CRISTOBAL Barreto for Jose Nicole MD cc: Jose Nicole MD
--- NOTE | 2016-08-29 17:09 | Extremity Venous Study ---
PROCEDURE NAME: Venous U/S Right Leg - 08/24/2016 RIGHT LOWER EXTREMITY VENOUS DUPLEX STUDY: REFERRING PHYSICIAN: Jose Nicole MD READING PHYSICIAN: Darron Gallo MD CHEMICAL PROCESS ANALYST: Srinivas. INDICATION: Right thigh swelling. FINDINGS: The deep and superficial veins of the right lower extremity were imaged throughout their course. All are compressible with forward flow. No thrombosis is identified. INTERPRETATION: No evidence of deep or superficial venous thrombosis of the right lower extremity. cc: MD Jose Shepard MD
--- NOTE | 2016-11-10 16:40 | ED EKG INTERP ---
This chart was entered by Lili Lakhani Scribe, acting as scribe for Weston Shipley MD. EKG Interpretation - EKG Time of EKG reading by physician:: 12:23 EKG Read and Signed by:: Weston Shipley EKG Interpretation (*Must complete 3 of following elements*): Abnormal ( possible lateral infarct, age undetermined) Rate: 120 Rhythm: sinus tachycardia Comments: possible left atrial enlargement; - EKG # 2 Time of EKG reading by physician:: 17:15 EKG Read and Signed by:: Yelena Alegria EKG Interpretation (*Must complete 3 of following elements*): Abnormal Rate: 103 Rhythm: sinus tachycardia Comments: possible left atrial enlargement; inferior infarct, age undetermined Attestation - Physician/ [place] Attestation The physician spent face to face time with patient:: Yes Advanced Practice Provider documentation review:: Supervising physician onsite and consulted in the evaluation and care of this patient. The physician did have a face to face encounter with the patient. This chart was documented by the indicated scribe, (Lili Lakhani Scribe) and accurately reflects the services I performed and decisions made by me, Weston Shipley MD, as attested by the provider's signature.
== END 2016-08-28 12:16 | disposition home or self-care (01) ==
LOC: ED 12:16 → ICU 17:48 → SUATTDRO 17:48 → ICU 19:46 → 3N 08-22 00:33
PROVIDERS: ATTEND Internal Medicine

== ENCOUNTER 2016-09-16 15:10 | Inpatient (IN) ==
[2016-09-16 15:35] LABS: MANUAL DIFF NEEDED? NO
[2016-09-16 15:41] LABS: BASO% 0.3 % (0.0-0.8); EOS# 0.29 X1000 (0.0-0.7); EOS% 4.2 % (0.0-10.0); HEMATOCRIT 30.5 % (42.0-52.0); HEMOGLOBIN 9.6 g/dL (14.0-18.0); IMM GRAN# 0.04 X1000 (0.0-0.04); IMM GRAN% 0.6 % (0.0-0.5); LYMPH# 1.08 X1000 (1.2-3.4); LYMPH% 15.6 % (20.5-51.1); MCH 27.3 PG (27-31); MCHC 31.5 g/dL (33-37); MCV 86.6 FL (81-99); MONO# 0.74 X1000 (0.11-0.59); MONO% 10.7 % (1.7-9.3); MPV 10.3 FL (7.4-10.4); NEUT% 68.6 % (42.2-75.2); PLT 370 X1000 (130-400); RBC 3.52 XMIL (4.7-6.1)
--- NOTE | 2016-09-16 15:43 | Diag Imaging Result Doc PS360 ---
EXAM: CHEST-2 VIEWS HISTORY: CP TECHNIQUE: PA and lateral chest COMMENT: There is what appears to be atelectasis and opacification of the right middle lobe which has been previously demonstrated on CT. This was also present on 09/12/2016. IMPRESSION: Stable chest. Electronically signed by Charles Mccarthy 09/16/2016 3:41 PM
[2016-09-16 15:50] LABS: INR 1.16; PROTIME 12.3 Seconds (9.2-11.7); PTT 33.1 Seconds (22.0-36.0)
[2016-09-16 16:05] LABS: ALBUMIN 4.4 g/dL (3.5-5.0); CALCIUM 9.5 mg/dL (8.8-10.2); MAGNESIUM 1.6 mg/dL (1.5-2.7); POTASSIUM 4.6 mmol/L (3.5-5.1); TOTAL BILIRUBIN 0.5 mg/dL (0.20-1.00); TOTAL PROTEIN 8.2 g/dL (6.3-8.3)
[2016-09-16] MEDS ORDERED: DUONEB (A & A) INH ONE (16:10)
[2016-09-16] MEDS ORDERED: G.I. COCKTAIL PO ONE (16:11)
[2016-09-16] MEDS ORDERED: NS 1,000 ML IV ONE (16:35)
[2016-09-16] MEDS ORDERED: LASIX IV ONE (16:42)
--- NOTE | 2016-09-16 17:10 | PROVIDER DOCUMENTATION ---
This chart was entered by Livier Bey Scribe, acting as scribe for Weston Shipley MD. HPI-Chest Pain - General Chief Complaint: Return/Recheck Stated Complaint: CP Time Seen by Provider: 09/16/16 15:44 Source: patient Allergies/Adverse Reactions: Patient Allergies Allergy/AdvReac Type Severity Reaction Status Date / Time morphine Allergy ANAPHYLAXIS Verified 09/16/16 15:22 propoxyphene napsylate * Allergy SWELLING Verified 09/16/16 15:22 [From Darvocet-N] tramadol HCl * [From Ultram] Allergy SWELLING Verified 09/16/16 15:22 IV pain meds Allergy Unknown Uncoded 09/16/16 15:22 Home Medications: Home Medication List Medication Instructions Recorded Confirmed Last Taken Type Metoprolol [Lopressor] 50 mg PO QAM 11/23/15 09/16/16 09/16/16 09:00 History Omeprazole [Prilosec] 40 mg PO DAILY #30 capsule. 05/15/16 09/16/16 09/16/16 09:00 Rx Hydrocortisone [Cortef] 10 mg PO HS 08/09/16 09/16/16 09/15/16 History Furosemide [Lasix] 20 mg PO PRN PRN 08/15/16 09/16/16 09/16/16 09:00 History Apixaban [Eliquis] 5 mg PO BID 08/19/16 09/16/16 09/16/16 09:00 History Eszopiclone [Lunesta] 3 mg PO HS 08/19/16 09/16/16 09/15/16 History Flecainide [Tambocor] 50 mg PO DAILY 08/19/16 09/16/16 09/16/16 09:00 History Fluconazole 100 mg PO DAILY 08/19/16 09/16/16 09/16/16 09:00 History Oxycodone E.r. [Oxycontin] 15 mg PO BID 08/19/16 09/16/16 09/16/16 09:00 History Paroxetine [Paxil] 20 mg PO DAILY 08/19/16 09/16/16 09/16/16 09:00 History Hydroxyzine 50 mg PO Q4H PRN PRN #30 tablet 07/09/16/16 09/16/16 09:00 Rx Hydrocortisone 20 mg PO QAM 09/12/16 09/16/16 09/16/16 09:00 History Lorazepam [Ativan] 1 mg PO QHS 09/12/16 09/16/16 08/16/16 History Hydrocodone/Acetaminophen [Trout 2 mg PO Q4-6H PRN PRN 09/16/16 09/16/16 History 7.5-325 Tablet] - History of Present Illness-CP Nature of Presenting Problem: Pt is a 41 year old male who came to the ED with a cc of chest pain and unable to swallow his medications. pt reports he is recently being treated for lung cancer and is on chemo. Pt is now bothered by the esophageal stretchers. Location: reports: other (esophagus) Chest Pain Radiation: reports: no radiation Quality of Pain: reports: tightness Severity in ED: mild Onset/Duration: unsure Timing: still present Context/Activities at Onset: reports: none Modifying Factors: improves with: nothing Nitro Today/Relief: no nitro taken today Aspirin Treatment Today: no aspirin today Prior Chest Pain/Cardiac Workup: reports: no prior chest pain Similar Symptoms Previously?: Yes Recently Seen Here or By Another Healthcare Provider: Yes Review of Systems - Adult - REVIEW OF SYSTEMS - ADULT Constitutional: denies: chills, fever Eyes: reports: no symptoms reported Ears, Nose, Mouth & Throat: reports: throat swelling. denies: sinus problem, loose teeth Cardiovascular: reports: chest pain. denies: heart murmur, orthopnea Respiratory: reports: shortness of breath. denies: cough, hemoptysis, wheezing Gastrointestinal: denies: diarrhea, nausea, vomiting Genitourinary: reports: no symptoms reported Musculoskeletal: reports: no symptoms reported Integumentary: reports: no symptoms reported Neurological: reports: no symptoms reported Psychiatric: reports: no symptoms reported Endocrine: reports: no symptoms reported Hematologic/Lymphatic: reports: no symptoms reported Allergic/Immunologic: reports: no symptoms reported All Other Systems: Reviewed and Negative Past History - Adult - PAST MEDICAL HISTORY-ADULT Review of Records: reports: Old Records Reviewed, Nursing Assessment Review Major Childhood Illnesses: reports: denies history Cardiovascular: reports: CHF, HTN Respiratory: reports: COPD, cancer, sleep apnea Gastrointestinal: reports: GERD Obstetrical/Gynecological: reports: denies history Genitourinary: reports: kidney stones Musculoskeletal: reports: denies history Neurological: reports: denies history Psychiatric: reports: anxiety Endocrine/Immune: reports: Lymphoma (hodgkins) Other Conditions: reports: other cancer - PRIOR SURGERIES/PROCEDURES Surgical/Procedure History: reports: back/neck, other (chest, biospy) - IMMUNIZATION STATUS Childhood Immunizations: See Nurse Assessment Flu Vaccine: See Nurse Assessment - FAMILY HISTORY Family History: reviewed, not pertinent Physical Exam-General - PHYSICAL EXAM-ADULT Initial Vital Signs Reviewed: Yes - CONSTITUTIONAL General Appearance: alert, obese - EYES Eyes: PERRL/EOMI, pink conjunctivae - HEAD, EARS, NOSE, MOUTH & THROAT HENMT: normocephalic/atraumatic, moist mucous membranes - NECK Neck: non-tender, full range of motion - RESPIRATORY Respiratory: wheezing - CARDIOVASCULAR Cardiovascular: normal peripheral pulses, regular rate, rhythm - GASTROINTESTINAL (ABDOMEN) Abdominal Exam: normal bowel sounds, non tender, soft - MUSCULOSKELETAL Back Exam: normal inspection, no CVA tenderness Extremity: normal range of motion, non-tender - SKIN Integumentary: normal color, normal turgor - NEUROLOGIC Neurologic: grossly normal - PSYCHIATRIC Psych/Mental Status: normal mood/affect, normal thought content, normal thought process, oriented x 3 Progress - PLAN OF CARE/RESULTS Progress/Plan/Lab Results: Vital Signs - 8 hr 09/16/16 15:13 09/16/16 16:27 Temperature 97.8 F Pulse Rate 97 H 80 Respiratory Rate 20 20 Blood Pressure 120/65 O2 Sat by Pulse Oximetry 100 Laboratory Results - last 24 hr 09/16/16 09/16/16 09/16/16 15:21 15:21 15:21 WBC 6.94 RBC 3.52 L Hgb 9.6 L Hct 30.5 L MCV 86.6 MCH 27.3 MCHC 31.5 L RDW Std Deviation 16.5 H Plt Count 370 MPV 10.3 Immature Gran % (Auto) 0.6 H Neut % (Auto) 68.6 Lymph % (Auto) 15.6 L [place] % (Auto) 10.7 H Eos % (Auto) 4.2 Baso % (Auto) 0.3 Immature Gran # (Auto) 0.04 Neut # (Auto) 4.77 Lymph # (Auto) 1.08 L [place] # (Auto) 0.74 H Eos # (Auto) 0.29 Baso # (Auto) 0.02 PT INR PTT (Actin FS) D-Dimer 2.42 H Sodium 136 Potassium 4.6 Chloride 96 L Carbon Dioxide 26 Anion Gap 14 BUN 10 Creatinine 1.6 H Estimated GFR/1.73 m2 48 BUN/Creatinine Ratio 6 Glucose 106 H Calculated Osmolality 271 Calcium 9.5 Magnesium 1.6 Total Bilirubin 0.50 AST 20 ALT 23 Alkaline Phosphatase 98 Creatine Kinase 43 Troponin T Mig-G-Nggsxpjylur Pept Total Protein 8.2 Albumin 4.4 Globulin 3.8 Albumin/Globulin Ratio 1.2 09/16/16 09/16/16 09/16/16 15:21 15:21 15:21 WBC RBC Hgb Hct MCV MCH MCHC RDW Std Deviation Plt Count MPV Immature Gran % (Auto) Neut % (Auto) Lymph % (Auto) [place] % (Auto) Eos % (Auto) Baso % (Auto) Immature Gran # (Auto) Neut # (Auto) Lymph # (Auto) [place] # (Auto) Eos # (Auto) Baso # (Auto) PT 12.3 H INR 1.16 PTT (Actin FS) 33.1 D-Dimer Sodium Potassium Chloride Carbon Dioxide Anion Gap BUN Creatinine Estimated GFR/1.73 m2 BUN/Creatinine Ratio Glucose Calculated Osmolality Calcium Magnesium Total Bilirubin AST ALT Alkaline Phosphatase Creatine Kinase Troponin T < 0.010 [id number]-[id number] Pept 1561 H Total Protein Albumin Globulin Albumin/Globulin Ratio Orders Category Date Time Status CHEST-2 VIEWS [RAD] Stat Exams 09/16/16 15:20 Completed CBC WITH ELECTRONIC DIFF [HEME] Stat Lab 09/16/16 15:21 Completed CK PROFILE [SP CHEM] Stat Lab 09/16/16 15:21 Completed COMPREHENSIVE METABOLIC PANEL [CHEM] Stat Lab 09/16/16 15:21 Completed D-DIMER [CHEM] Stat Lab 09/16/16 15:21 Completed MAGNESIUM [CHEM] Stat Lab 09/16/16 15:21 Completed PRO B-NATRIURETIC PEPTIDE Stat Lab 09/16/16 15:21 Completed PROTIME WITH INR [COAG] Stat Lab 09/16/16 15:21 Completed PTT [COAG] Stat Lab 09/16/16 15:21 Completed TROPONIN T Stat Lab 09/16/16 15:21 Completed 0.9% Sodium Chloride Inj [Ns] 1,000 ml Med 09/16/16 16:35 Discontinued IV 999 mls/hr Albuterol 2.5MG/Ipratrop 0.5MG [Duoneb (A & A)] Med 09/16/16 16:10 Discontinued 3 ml INH NOW ONE Furosemide [Lasix] Med 09/16/16 16:42 Discontinued 60 mg IV NOW ONE Lido/Armando Alk/Al&mg Hydrox [G.i. Cocktail] Med 09/16/16 16:11 Discontinued 30 ml PO NOW ONE Aerosol Treatments Routine Oth 09/16/16 16:11 Completed Aerosol Treatments Stat Oth 09/16/16 16:11 Completed EKG [EKG] Stat Ther 09/16/16 15:20 Ordered Result Diagrams: 09/16/16 15:21 09/16/16 15:21 - REASSESSMENT Reassessment #1 Time Reassessed: 17:06 Status: unchanged (tried to explain that he is not getting better, but is in denial) - EKG 1 Time of EKG reading by physician:: 15:16 EKG Read and Signed by:: Weston Shipley EKG Interpretation (*Must complete 3 of following elements*): Abnormal Rate: 93 (possible left atrial enlargement; possible inferior infarct, age undetermined) Rhythm: NSR - CONSULTS/PCP/HOSPITALIST Notification #1 *Consult/PCP/Hospitalist*: Dr Sotomayor Time Discussed: 17:07 Consult Disposition: Admit (pt cannot be intubated so further intervention not possible admit and anticipate hospice placement) Departure - Departure Date of Disposition Decision: 09/16/16 Time of Disposition Decision: 17:09 DIAGNOSIS: Esophageal obstruction, Esophageal atresia, stenosis, or tracheoesophageal fistula, congenital Lung cancer Qualifiers: Lung location: unspecified part of lung Disposition: ADMITTED INPATIENT 09 Certified Medical Emergency: Emergent Condition: Stable - Critical Care Note This patient required my direct & personal management of CC.: No Attestation - Physician/ [place] Attestation The physician spent face to face time with patient:: Yes Advanced Practice Provider documentation review:: Supervising physician onsite and consulted in the evaluation and care of this patient. The physician did have a face to face encounter with the patient. This chart was documented by the indicated scribe, (Livier Bey Scribe) and accurately reflects the services I performed and decisions made by me, Weston Shipley MD, as attested by the provider's signature.
[2016-09-16] MEDS ORDERED: NORCO-7.5 PO PRN (18:16)
[2016-09-16] MEDS: HYDROCODONE/APAP 7.5-325/15 ML PO PRN (20:03)
[2016-09-16] MEDS: ASPIRIN PO SCH ×2 (20:05→20:07)
[2016-09-16] MEDS: NS 1,000 ML IV SCH (20:06)
[2016-09-16] MEDS: ZOSYN 2.25 GM/NS 2.25 GM/50 ML IVPB IV SCH (20:06)
--- NOTE | 2016-09-16 20:40 | HISTORY AND PHYSICAL ---
CHIEF COMPLAINT: Chest pain, shortness of breath. HISTORY OF PRESENT ILLNESS: Ms Greenberg is a 41-year-old male well known to our service with a history of Hodgkin lymphoma in remission, non-small cell lung cancer, SVC syndrome, PAF and multiple others who was most recently discharged from our service on 08/28/2016. At that time he was admitted for pneumonia, acute kidney injury and sepsis. He has been having left-sided chest pain and shortness of breath over the last week or so. He describes a constant left-sided chest pain that wraps around to the left side of his back. It is associated with significant shortness of breath, is not made worse or better with anything. He reports occasional fevers, mild nausea and vomiting which is constant for him and difficulty swallowing. However he is also known to have candidal esophagitis and esophageal strictures, he is followed by Dr. Sotomayor as well. He actually came to the ER on 09/12/16, at that time he had a CTA of the chest done which revealed narrowing to the arteries in the right hilum secondary to adenopathy which is questionably mildly advanced compared to the prior. There is a postobstructive atelectasis and infiltrates which are more prominent. Today chest x-ray shows right middle lobe atelectasis and opacification. His laboratory data shows anemia, creatinine of 1.6 and a probe B of 1561. An echocardiogram done on 08/16/2016 does show a fairly significant pulmonary artery hypertension with PA pressures estimated at 73/25. He has generalized weakness and shortness of breath whether he is lying, standing or sitting. He has chronic edema from his other comorbidities. The patient is now going to be admitted for further treatment and evaluation. PAST MEDICAL HISTORY: 1. Hodgkin lymphoma in remission. 2. Non-small cell lung cancer. 3. SVC syndrome status post stenting. 4. COPD. 5. Obesity. 6. Hypertension. 7. PAF. 8. Esophageal strictures. 9. Candidal salpingitis. 10. Gastritis. 11. Duodenitis. 12. Chronic pain on large amounts of narcotic therapy. 13. Recent acute kidney injury that has been resolving over the past few weeks. PAST SURGICAL HISTORY: Port placement, back surgery, SVC stent and lithotripsy. SOCIAL HISTORY: He denies tobacco, alcohol or drug use. FAMILY HISTORY: Noncontributory . REVIEW OF SYSTEMS: Fourteen-point review of systems obtained and found to be negative with the exception of the HPI. ALLERGIES: Morphine, Darvocet, tramadol and IV pain medications. HOME MEDICATIONS: Eliquis 5 mg b.i.d., flecainide 50 mg daily, Diflucan 100 mg daily, [place] as needed for pain, Cortef 20 mg in the a.m. 10 mg in the at bedtime, hydroxyzine 50 mg as needed, Ativan 1 mg p.o. at bedtime, Lopressor 50 mg a.m., Prilosec 40 mg daily, OxyContin 15 mg b.i.d., Paxil 20 mg daily, Ambien 10 mg at bedtime. PHYSICAL EXAMINATION: VITAL SIGNS: Blood pressure is 120/65, heart rate is 97, respiratory is 20, O2 saturation is 100% on room air, temperature is 97.8 degrees. GENERAL: This is an obese male lying in hospital bed no acute distress. NEUROLOGIC: He is awake, alert, and oriented, follows commands. No focal deficits are noted. HEENT: Head atraumatic and normocephalic. He does have significant steroid related fat accumulation in the face. Pupils are equal, round, reactive to light. Oral mucosa is moist. Trachea is midline. CHEST: Wheezes and crackles in the right lung diminished throughout, somewhat diminished air entry. CV: Regular rate and rhythm. S1-S2 is noted. GI: Soft, nondistended, nontender. Bowel sounds positive. EXTREMITIES: Trace edema, pulses diminished but palpable bilaterally. DIAGNOSTIC DATA: Chest x-ray shows right middle lobe opacification and atelectasis. WBC 6.94, hemoglobin 9.6, hematocrit 30.5, platelet count is 370,000 INR 1.16, D-dimer 2.42, sodium 136, potassium 4.6, chloride 96, CO2 26, anion gap 14, BUN 10, creatinine 1.6, glucose 106, LFTs within normal limits. Troponin negative, proBNP 1561, albumin 4.4. ASSESSMENT AND PLAN: 1. Chest pain: Atypical bordering on noncardiac in nature. Will continue telemetry, rule out AK with cardiac enzymes and check a CT of the chest without contrast. Echocardiogram recently done does not reveal any abnormalities of the left ventricle, there is PA hypertension and RV dilation. Is unlikely that his pain is cardiac in nature but we will continue with his pain medication and watch closely. 2. A right middle lobe opacification with atelectasis: Biopsy done earlier this year is negative for malignancy however he continues to have opacification post obstruction in that lobe. He is reporting subjective fever and chills so will go ahead and draw cultures and start Zosyn and Levaquin. Continue with breathing treatments and consult Dr. Doty his contract administration coordinator. 3. Dysphagia: Dr. Sotomayor has been consulted. He may need another EGD but obviously will defer that to GI. 4. Hodgkin lymphoma and non-small cell lung cancer: Dr. Iqbal has been consulted. 5. Renal insufficiency: Creatinine is much improved from most recent admission but we are going to go ahead and hydrate him and monitor his response. 6. Chronic pain: Continue home medications. 7. History of superior vena cava syndrome: Will continue his Eliquis. 8. History of paroxysmal atrial fibrillation: Continue all his antiarrhythmics and anticoagulants. 9. Deep vein thrombosis prophylaxis with his Eliquis at home. Further recommendations to follow. Dictated by CRISTOBAL Ambrose for Jose E Covarrubias MD cc: CRISTOBAL Ambrose MD
[2016-09-16] MEDS: ATIVAN PO SCH (21:35)
[2016-09-16] MEDS: CUBICIN 500 MG in NS 100 ML IV SCH (21:35)
[2016-09-16] MEDS: CORTEF PO SCH (21:36)
[2016-09-16] MEDS: ELIQUIS PO SCH (21:36)
[2016-09-16] MEDS: OXYCONTIN PO SCH (21:36)
[2016-09-16] MEDS: AMBIEN PO SCH (21:36)
--- NOTE | 2016-09-16 22:06 | Diag Imaging Result Doc PS360 ---
EXAM: CT THORAX W/O CONTRAST HISTORY: left sided chest pain, dyspnea TECHNIQUE: CT of the chest without contrast with dose reduction (clarity.) COMMENT: The current study is compared with that of 09/12/2016. There are some patchy alveolar opacities present in the right upper lobe around image 40 which were not present at the time the previous study. This may represent patchy Erin bronchopneumonia, particularly given the very short interval between the two exams. There is also a small focus of groundglass opacity adjacent to the pleura in the right lower lobe on image 47 which was not previously evident. There continues to be fluid throughout the esophagus and right paratracheal adenopathy. There is obstruction of the right middle lobe bronchus. There is pleural fluid on the left which has increased in volume since the previous study. IMPRESSION: 1. Patchy pneumonitis in the right upper and lower lobes not present on 09/12/2016. 2. Worsened left pleural effusion. Electronically signed by Charles Mccarthy 09/16/2016 10:04 PM
[2016-09-16] MEDS: DUONEB (A & A) INH PRN (22:29)
[2016-09-17] MEDS: ZOSYN 2.25 GM/NS 2.25 GM/50 ML IVPB IV SCH ×4 (01:26→18:26)
[2016-09-17] MEDS: HYDROCODONE/APAP 7.5-325/15 ML PO PRN ×4 (01:27→20:46)
[2016-09-17 03:51] LABS: HEMATOCRIT 26.6 % (42.0-52.0); HEMOGLOBIN 8.3 g/dL (14.0-18.0); MCH 27.4 PG (27-31); MCHC 31.2 g/dL (33-37); MCV 87.8 FL (81-99); MPV 10.3 FL (7.4-10.4); RBC 3.03 XMIL (4.7-6.1)
[2016-09-17 03:53] LABS: CALCIUM 8.2 mg/dL (8.8-10.2); POTASSIUM 4.1 mmol/L (3.5-5.1)
[2016-09-17] MEDS: NS 1,000 ML IV SCH ×3 (05:48→22:17)
[2016-09-17] MEDS ORDERED: PRILOSEC PO SCH (07:00)
[2016-09-17] MEDS: DUONEB (A & A) INH PRN ×3 (07:34→20:08)
[2016-09-17] MEDS: ELIQUIS PO SCH ×2 (10:42→22:11)
[2016-09-17] MEDS: TAMBOCOR PO SCH (10:43)
[2016-09-17] MEDS: DIFLUCAN PO SCH (10:43)
[2016-09-17] MEDS: PAXIL PO SCH (10:44)
[2016-09-17] MEDS: CORTEF PO SCH ×2 (10:44→22:16)
[2016-09-17] MEDS: LOPRESSOR PO SCH (10:44)
[2016-09-17] MEDS: ASPIRIN PO SCH (10:45)
[2016-09-17] MEDS: OXYCONTIN PO SCH ×2 (10:50→22:11)
--- NOTE | 2016-09-17 15:39 | PROGRESS NOTE ---
DATE: 09/17/2016 SUBJECTIVE: A 41-year-old with a history of lung cancer. He presented with some chest pain. States he is still having some chest pain. Does not seem to be that severe. He is asking for some food. He had a chest CT done and probably has pneumonitis right upper lower lobes, worsening left pleural effusion. This was compared with CT on 09/12/2016 and patchy alveolar opacities present in the right upper lobe that were not present on previous study. He describes two components of pain, one he has had for a while and seems to deep, substernal and he has some left-sided sharp pain, radiates down around the left chest, and a distant history of Hodgkin lymphoma, diagnosis of [id number] cancer remission, non-small cell cancer with SVC syndrome, paroxysmal atrial fibrillation. He was in on our service on 08/28/2016. At that time he had pain and shortness of breath. This time presented with chest pain. He seems to be feeling a little better. OBJECTIVE: Vital Signs: Afebrile, temperature 97.9 degrees, pulse 96, respirations 14, blood pressure 107/65. Lungs: Clear anterolateral. Cardiovascular: Regular rate without murmur or S3. Abdomen: Soft. Skin: Warm and dry. LABORATORY STUDIES: Urine output over 600 mL. Reviewed his labs. Hematocrit is 26, hemoglobin 8.3. Chemistry: Sodium 140, potassium 4.1, chloride 97, BUN 11, creatinine 1.8. Troponins were less than 0.01 and CPK in the 30s. ASSESSMENT AND PLAN: 1. Atypical chest pain in face of underlying lung cancer. Cardiac enzymes were negative. Echocardiogram recently done. Did not reveal any abnormality of left ventricle. PA hypertension and RV dilatation./ 2. Right middle lobe opacification, pneumonia. Continue present antibiotics. He is on Zosyn and Levaquin. 3. Dys[address]ia. Dr. Sotomayor has seen before. Apparently he has had more trouble swallowing. 4. Hodgkin lymphoma, non-small cell lung cancer. Dr. Iqbal following him. 5. Renal insufficiency. Creatinine improved from recent admission. Continue to hydrate him. 6. Chronic pain. 7. History of superior vena cava syndrome. He is on . 8. Paroxysmal atrial fibrillation. Continue present antiarrhythmic. cc: Edi Witt MD
--- NOTE | 2016-09-17 17:37 | CONSULTATION ---
DATE OF CONSULTATION: 09/17/2016 CHIEF COMPLAINT: Shortness of breath, chest pain, cough. HISTORY OF PRESENT ILLNESS: This is a 41-year-old male admitted with pneumonia. He has a complaint of shortness of breath and cough. He describes his cough as nonproductive and intermittent. He states that he has shortness of breath at rest and with exertion. Other manifestations include occasional fever with chills. PAST MEDICAL HISTORY: 1. Hodgkin's lymphoma in remission. 2. Non-small cell lung cancer. 3. COPD. 4. SVC syndrome. 5. Obesity. 6. Hypertension. 7. Esophageal strictures. 8. Gastritis. 9. Candidal salpingitis. 10.Duodenitis. 11.Chronic pain. PAST SURGICAL HISTORY: 1. Port placement. 2. Back surgery. 3. SVC stent. 4. Lithotripsy. SOCIAL HISTORY: He denies tobacco, alcohol, or illicit drug use. FAMILY HISTORY: Noncontributory. REVIEW OF SYSTEMS: A 10-point review of systems was obtained and the pertinent is listed in the HPI, otherwise noncontributory. ALLERGIES: Morphine, Darvocet, tramadol, and IV pain medications. HOME MEDICATIONS: 1. Eliquis 5 mg b.i.d. 2. Diflucan 100 mg daily. 3. [place] p.r.n. for pain. 4. Ativan 1 mg p.o. at bedtime. 5. Lopressor 50 mg every a.m. 6. Prilosec 40 mg daily. 7. OxyContin 15 mg. 8. Flecainide 50 mg daily. 9. Hydroxyzine 50 mg as needed. 10. 20 mg daily. 11.Ambien 10 mg at bedtime. PHYSICAL EXAMINATION: Vital signs: Temperature 97.7. Pulse rate 97. Respiratory rate 13. Blood pressure 101/62. O2 saturation 96% on room air. General: This is a 41- year-old male who appears weak. No acute distress. Neurologic: Awake, alert, oriented x3. HEENT: Head is atraumatic, normocephalic. Pupils are equal, round, reactive to light and accommodation. Trachea midline. Neck supple. Oral mucosa pink and moist. Cardiovascular: S1 and S2 auscultated. No gallops or rubs. Respiratory: Diminished breath sounds throughout with wheezes and crackles. Gastrointestinal: Abdomen soft, nondistended, nontender, with active bowel sounds. Extremities: Without edema or cyanosis. Pedal pulses bilaterally palpable. DIAGNOSTIC DATA: Chest CT impression: Patchy pneumonitis in the right upper lobe and lower lobes, worsening of left pleural effusion. Chest x-ray on 09/16/2016 impression : Stable chest, also what appears to be atelectasis and ossification of the right middle lobe. LABORATORY DATA: White blood cells 5.35, red blood cells 3.03, hemoglobin 8.3, hematocrit 26.6, MCHC 31.2, RDW 16.4. Sodium 140, chloride 97, creatinine 1.8, glucose 116, calcium 8.2. ASSESSMENT AND PLAN: 1. Atelectasis and opacity of the right middle lobe. Continue bronchodilators and antibiotics. This could be secondary to pneumonia or malignance. He is post inconclusive bronchoscopy in 04/2016. 2. Hodgkin's lymphoma and non-small cell lung cancer. Dr. Iqbal has been consulted. 3. Chest pain. Continue telemetry. 4. History of superior vena cava syndrome. I agree with the current treatment plan. 5. Atrial fibrillation. I agree with the current treatment plan. 6. Continue DVT prophylaxis and GI prophylaxis. Thank you for the courtesy of this consult. Dictated by CRISTOBAL Green for Wale Doty MD cc: CRISTOBAL Green MD [facility]
[2016-09-17] MEDS: HYDROXYZINE PO PRN (18:30)
--- NOTE | 2016-09-17 19:16 | CONSULTATION ---
DATE OF CONSULTATION: 09/17/2016 REFERRING PHYSICIAN: Dr. Jose E Covarrubias M.D. INDICATION FOR CONSULTATION: Dysphagia. HISTORY OF PRESENT ILLNESS: The patient is a 41-year-old white male who is well known to our service. He has had multiple admissions for chest pain and shortness of breath as a complication of his non-small cell lung cancer and Hodgkin lymphoma. His clinical course has been complicated by SVC syndrome, recurrent pneumonia, pleural effusions, and failure to thrive. From a GI perspective, he has undergone multiple EGDs since February for recurrent dysphagia due to esophageal stenosis. His last endoscopy was remarkable for Peggy esophagitis , esophageal stricture, reflux esophagitis, possible Demarco's esophagus, Schatzki's ring, hiatal hernia, erosive gastritis, multiple gastric polyps, and duodenitis limited to the duodenal bulb. His endoscopy was complicated by our inability to intubate his airway. Anesthesia attempted intubation for over 20 minutes. It was deemed that he was too high risk. He tolerated conscious sedation with minimal airway compromise. Unfortunately, because of his difficult airway, anesthesia is reluctant to repeat his endoscopy in the absence of a life- threatening complication, such as active bleeding. He is currently admitted with chest pain and shortness of breath. His CT scan that was performed in the emergency room is remarkable for patchy pneumonitis in the right upper lobe and the right middle lobe that was not previously present on 2016. In addition, there was obstruction of the right middle lobe bronchus which is new. He also has persistent fluid in the esophagus and right paratracheal adenopathy which is causing compression on the esophagus. There has also an interval increase in his left pleural effusion since the previous study. At bedside, he is notably tachypneic. He was receiving a breathing treatment at the time of our exam but remained tachypneic with audible inspiratory and expiratory wheezes. He reports significant but intermittent dysphagia. We are asked to participate in his care. PAST MEDICAL HISTORY: 1. Hodgkin lymphoma. 2. Non-small cell lung cancer. 3. SVC syndrome status post stenting. 4. COPD. 5. Obesity. 6. Hypertension. 7. Paroxysmal atrial fibrillation. 8. Esophageal strictures. 9. Peggy esophagitis. 10. Erosive esophagitis, grade C. 11. Schatzki's ring. 12. Demarco's esophagus. 13. Hiatal hernia. 14. Erosive gastritis. 15. Gastric polyps. 16. Duodenitis. 17. Difficult airway. 18. Chronic pain syndrome requiring large amounts of narcotic therapy. 19. Acute kidney injury. 20. Kidney stones. PAST SURGICAL HISTORY: 1. Multiple back surgeries. 2. Multiple lung biopsies. 3. Port placement. 4. SVC stent placement. 5. Lithotripsy. SOCIAL HISTORY: Currently negative for alcohol, tobacco, or recreational drug use. In the past, however, he drank and smoked heavily. He also used a significant amount of drugs. He has been clean for several years. FAMILY HISTORY: Noncontributory. REVIEW OF SYSTEMS: Remarkable for the information that is noted above. From a GI perspective, he continues to have dysphagia although it is intermittent. He denies abdominal pain, nausea with vomiting, fevers, or chills. MEDICATION ALLERGIES: 1. Morphine. 2. Darvocet. 3. Tramadol. 4. Difficulty with IV pain medications due to recurrent respiratory distress. HOME MEDICATIONS: 1. Paxil. 2. OxyContin. 3. Prilosec. 4. Lopressor. 5. Ativan. 6. Hydroxyzine. 7. Cortef. 8. [place]. 9. Lasix. 10. Fluconazole. 11. Tambocor. 12. Lunesta. 13. Eliquis. PHYSICAL EXAMINATION: Vital signs: His blood pressure is 105/60, pulse is 98, respirations 16, temperature of 98.0 degrees. HEENT: He has facial fullness consistent with his history of SVC syndrome. His sclerae are anicteric. His conjunctivae are pale. His oropharyngeal mucosal membranes are unremarkable. Pulmonary: He has inspiratory and expiratory wheezes despite just receiving a breathing treatment. There are decreased breath sounds in the bases bilaterally with the left being greater than the right. Cardiovascular: He has regular rate and rhythm with no gallops or rubs. Abdominal Exam: Reveals normoactive bowel sounds. The abdomen is soft, nontender, with central adiposity. Extremities: Bilaterally are negative for cyanosis, clubbing, or edema. OBJECTIVE DATA: Reveals a hemoglobin of 8.3 with hematocrit of 26.6, and a white count of 5.35. He has 328,000 platelets. His sodium is 140, potassium 4.1, chloride 97, CO2 of 30, BUN 11, creatinine 1.8, with a glucose of 116 and a calcium of 8.2. His CK is 33 with a troponin of less than 0.10. On 09/16/2016, his BMP was 1,561. His PT is 12.3 with an INR of 1.16 and a PTT of 33.1. His D-dimer is elevated at 2.42. IMPRESSIONS: 1. Dysphagia. 2. Recurrent esophageal obstruction. 3. Known peggy esophagitis. 4. Reflux esophagitis. 5. Gastritis. 6. Gastric polyps. 7. Duodenitis. 8. Iron-deficiency anemia. 9. Dysphagia. 10. Difficult airway. RECOMMENDATION: 1. In light of his disease progression and the level of difficulty we have had with intubation and performing his endoscopies, I recommend conservative management. 2. I would not perform endoscopy at this time given his pulmonary conditions and the recent findings on the CT scan. 3. He would benefit from a full liquid to soft food diet which he tolerates at home. He does not tolerate chicken or soft meats that are solid. However, he has been extremely noncompliant and typically consumes chicken and beef as well as other meats on a regular basis which have resulted in food impactions. 4. He does have a decreasing hemoglobin. However, in the absence of acute bleeding, I would recommend transfusion and clinical monitoring. 5. In the event that he does have a bleeding episode, he would require an awake intubation because of the difficulty with his airway. 6. I will place him on IV PPI therapy as opposed to oral Prilosec. He has a tendency to become choked on his medications at times. He will need suspension or elixir in the future. 7. Additional recommendations to follow based on his clinical course. cc: MD Jose E Quick MD Heather Shah, MD MTDD
[2016-09-17] MEDS: ATIVAN PO SCH (22:11)
[2016-09-17] MEDS: AMBIEN PO SCH (22:11)
[2016-09-17] MEDS: CUBICIN 500 MG in NS 100 ML IV SCH (22:12)
[2016-09-17] MEDS: PROTONIX IV SCH (22:17)
[2016-09-17] MEDS: SODIUM CHLORIDE 0.9% INJ SCH (22:17)
[2016-09-18] MEDS: ZOSYN 2.25 GM/NS 2.25 GM/50 ML IVPB IV SCH ×4 (00:41→18:16)
[2016-09-18] MEDS: HYDROCODONE/APAP 7.5-325/15 ML PO PRN ×6 (00:44→22:25)
--- NOTE | 2016-09-18 06:23 | EKG Report ---
Test Performed on : 09/16/2016 3:16:45 PM Test Reason : Re-Ordered/CP Blood Pressure : / mmHG Vent. Rate : 093 BPM Atrial Rate : 093 BPM P-R Int : 194 ms QRS Dur : 118 ms QT Int : 388 ms P-R-T Axes : 040 048 070 degrees QTc Int : 482 ms Normal sinus rhythm. Possible Left atrial enlargement Possible Inferior infarct (cited on or before 12-SEP-2016) Abnormal ECG When compared with ECG of 12-SEP-2016 21:33, QRS axis shifted left Unconfirmed Result
--- NOTE | 2016-09-18 06:31 | EKG Report ---
Test Performed on : 09/16/2016 8:33:55 PM Test Reason : chest pain Blood Pressure : / mmHG Vent. Rate : 091 BPM Atrial Rate : 091 BPM P-R Int : 202 ms QRS Dur : 114 ms QT Int : 442 ms P-R-T Axes : 034 -15 067 degrees QTc Int : 543 ms Normal sinus rhythm. Possible Left atrial enlargement Left axis deviation Prolonged QT Abnormal ECG When compared with ECG of 16-SEP-2016 15:16, (Unconfirmed) ST less elevated in V2-V3 T wave amplitude has decreased in Confirmed by Arnaldo Colon DO ([id number]) on 09/21/2016 6:52:24 AM
[2016-09-18 07:03] LABS: AGAP 11; BUN 7 mg/dL (8-22); CALCIUM 8.3 mg/dL (8.8-10.2); CHLORIDE 102 mmol/L (98-107); COSMO 277; POTASSIUM 3.9 mmol/L (3.5-5.1); SODIUM 140 mmol/L (136-145); TCO2 27 mmol/L (25-35)
[2016-09-18 07:38] LABS: HEMATOCRIT 25.7 % (42.0-52.0); HEMOGLOBIN 7.9 g/dL (14.0-18.0); MCHC 30.7 g/dL (33-37); MCV 91.1 FL (81-99); MPV 10.4 FL (7.4-10.4); RBC 2.82 XMIL (4.7-6.1)
[2016-09-18] MEDS: PAXIL PO SCH (08:04)
[2016-09-18] MEDS: TAMBOCOR PO SCH (08:04)
[2016-09-18] MEDS: CORTEF PO SCH ×2 (08:05→21:38)
[2016-09-18] MEDS: ELIQUIS PO SCH ×2 (08:05→21:37)
[2016-09-18] MEDS: DIFLUCAN PO SCH (08:05)
[2016-09-18] MEDS: ASPIRIN PO SCH (08:05)
[2016-09-18] MEDS: LOPRESSOR PO SCH (08:05)
[2016-09-18] MEDS: DUONEB (A & A) INH PRN (08:25)
[2016-09-18] MEDS: OXYCONTIN PO SCH ×2 (09:10→21:37)
[2016-09-18] MEDS: NS 1,000 ML IV SCH ×2 (09:46→18:59)
[2016-09-18] MEDS: HYDROXYZINE PO PRN (15:44)
[2016-09-18] MEDS ORDERED: ATIVAN PO PRN (16:40)
--- NOTE | 2016-09-18 17:02 | PROGRESS NOTE ---
DATE: 09/18/2016 SUBJECTIVE: He still having left-sided chest pain. He still has significant dysphagia. I appreciate the help from Dr. Iqbal and Dr. Sotomayor. This is a 41-year-old who is well known to our service with multiple admissions for chest pain and shortness of breath. He has complications from non-small cell lung cancer, Hodgkin's lymphoma with superior vena cava syndrome, recurrent pneumonia, and pleural effusions, failure to thrive. Dr. Sotomayor is following him. He has undergone multiple EGDs since February for recurring dysphagia due to esophageal stenosis. His last EGD was remarkable for Peggy esophagitis, esophageal stricture, reflux esophagitis, possible Demarco's esophagus, Schatzki's ring, hiatal hernia, erosive gastritis, multiple gastric polyps, duodenitis, limited to duodenal bulb. His endoscopy was complicated by inability to intubate his airway. Anesthesia attempted intubation for 20 minutes and deemed he was too high risk. He tolerated conscious sedation with minimal airway compromise. Unfortunately because of difficult airway, Anesthesia is reluctant to repeat this endoscopy in the absence of life- threatening complication, such as active bleeding or I guess esophageal obstruction. He had a CT done in emergency room of his chest which showed patchy pneumonitis of the right upper lobe, right middle lobe, not much that was not previously present on 09/12/2016. In addition, there was obstruction of the right middle lobe bronchus which is new. He has persistent fluid in the esophagus and right peritracheal adenopathy causing compression of the esophagus, so he appears to be having advance radiographically of his lung cancer. He is about to eat supper. He has a hamburger. Dr. Sotomayor has cautioned him to eat soft foods. The urine output has been good, over 2.5 L. OBJECTIVE: Vital signs: Pulse 80, respirations 17, blood pressure 107/56. Lungs: Are clear in all lung marte. Cardiovascular: Regular rhythm and rate without murmur or S3. Abdomen: Soft. Skin: Is warm and dry. LABORATORY: Reviewed laboratory from the . Hematocrit 25, hemoglobin 7.9. Sodium 140, potassium 3.9, chloride 102, BUN 7, creatinine 1.3, magnesium 1.4. ASSESSMENT AND PLAN: 1. Non-small cell lung cancer. Patchy pneumonitis in the right upper lobe, lower lobes, which was present on 09/12/2016, worsened left pleural effusion. He is currently getting Zosyn 2.25 mg IV q.6 hours. Concerned that there is an increase in tumor load. Dr. Mohan and Dr. Iqbal following. 2. Dysphagia. Aware. As above. 3. Chest pain, which does not appear to be cardiac. 4. History of Hodgkin's lymphoma. cc: Edi Witt MD
[2016-09-18] MEDS: PROTONIX IV SCH (18:16)
[2016-09-18] MEDS: SODIUM CHLORIDE 0.9% INJ SCH (18:16)
--- NOTE | 2016-09-18 18:19 | CONSULTATION ---
DATE OF CONSULTATION: 09/18/2016 REASON FOR CONSULTATION: Consultation requested for patient known, history of lung cancer. HISTORY OF PRESENT ILLNESS: Mr. Greenberg is an unfortunate 41-year-old, male who is known to us as we have been treating him for non-small cell lung cancer. The patient also has a history of Hodgkin's lymphoma as well as SVC syndrome, status post stent placement, PAF and now multiple admissions for pneumonia as well as atypical chest pain. The patient has now presented with again some left-sided chest pain with shortness of breath that will occur intermittently. The patient has had several hospitalizations and ER visits over the last 8 weeks or so with many of the same complaints. The patient is also having issues with dysphagia and has previously been found to have candidal esophagitis as well as esophageal strictures. He is followed by Dr. Sotomayor for both of these issues. Exams have reviewed the patient to have some atelectasis and infiltrates. He also had elevated creatinine 1.6 as well as a proBNP of 1561. He also has significant pulmonary artery hypertension with PA pressures estimating at 73/25 with a recent echocardiogram. The patient has now been admitted for further evaluation and treatment. PAST MEDICAL HISTORY: 1. Hodgkin's lymphoma currently in remission. 2. Small cell lung cancer. Currently receiving Navelbine treatment, but his last treatment was on 08/09/2016. Treatment has been held due to the patient's ongoing health issues and multiple hospitalizations. 3. SVC syndrome, status post stenting. 4. COPD. 5. Obesity. 6. Hypertension. 7. PAF. 8. Esophageal strictures and compression from lung cancer, the patient has had multiple dilatations. 9. Candidal esophagitis. Previously treated. 10. Gastritis and duodenitis. 11. Chronic pain. 12. Recent acute kidney injury that has been improving. PAST SURGICAL HISTORY: 1. Port placement. 2. Back surgery. 3. SVC stenting and previous lithotripsy. SOCIAL HISTORY: Patient denies any current tobacco, alcohol or drug use. He does live with his . He does not work at this time. FAMILY HISTORY: His father of coronary artery disease at age 54. REVIEW OF SYSTEMS: Twelve point review of systems has been completed and negative except for as in HPI. PHYSICAL EXAMINATION: Vital Signs: Temperature 97.7 degrees, heart rate 93, respirations 16, blood pressure 118/63, O2 saturation 91% on room air. General: This is a male who is sitting up in his hospital bed in no acute distress. No one is at bedside. He appears pale. No increased work of breathing. HEENT: Head appears to be normocephalic, atraumatic. Eyes: Pupils equal, round, reactive. Ears, nose, throat, neck, and mouth: Oral mucosa appears to be normal. Trachea is midline. Cardiovascular: S1-S2 heard. Respiratory: Chest is essentially clear to auscultation bilaterally. Normal respiratory effort. Gastrointestinal: Abdomen is obese. Soft, nontender, nondistended with positive bowel sounds. Musculoskeletal: No bony abnormalities noted. Extremities: No edema noted. Neurologic: Patient is alert and oriented. He appears somewhat lethargic. He does participate in the interview. No obvious focal motor deficits noted. LABS AND STUDIES: CT of the chest on 09/16/2016 does show patchy pneumonitis in the right upper and lower lobes which was not present on the scan that was just done on 2016. Patient also has worsened left pleural effusion. Electrocardiogram shows normal sinus rhythm. Prolonged QT. White blood cells 5.48, hemoglobin 7.9, hematocrit 25.7, platelets 328,000. Sodium 140, potassium 3.9 chloride 102, CO2 27, BUN 7, creatinine 1.3, glucose 100, proBNP 1561. Troponins have been normal. Magnesium low at 1.4. ASSESSMENT AND PLAN: 1. Metastatic non-small cell lung cancer. Patient has not been able to receive treatment in over a month due to his general overall state of health. Recent scans have showed that his disease is slowly progressing without treatment. He is not a candidate for any further radiation therapy. He is also again not well enough at this time to proceed with any further chemotherapy. We did discuss with the patient and his today about proceeding with hospice. They are open to hospice consult and this has now been placed. 2. Chest pain. Appears to be atypical. Workup as per above. Continue to monitor closely. 3. Opacification and atelectasis noted on CT scan. Previously also noted atelectasis versus infiltrates. The patient was reporting subjective fevers and chills upon his presentation. Cultures have been drawn and the patient has been started on IV antibiotics of Zosyn and Levaquin. Dr. Doty has also been consulted and is following the patient. 4. Dys[address]. Dr. Sotomayor has been consulted. Per her note, any further EGDs are not recommended at this time. Patient is high risk. Continue conservative management per Dr. Sotomayor. 5. Hodgkin's lymphoma. No evidence of recurrence. 6. Renal insufficiency. Patient's creatinine is actually slowly improving. 7. History of superior vena cava, status post stenting. Continue Eliquis. 8. History of paroxysmal atrial fibrillation. Continue all his current medications as well as anticoagulation We want to thank you for consulting us on Mr. Greenberg. Will continue to follow along and adjust our treatment plan per hospital course. Dictated by SUKHI Sutherland for Sera Iqbal MD cc: Sera Iqbal MD I have seen and examined Mr. Greenberg and agree with above A/P. I have recommended Hospice for the patient given his declining performance status and limited treatment options despite his young age. Sera Iqbal MD [facility]
[2016-09-18] MEDS: AMBIEN PO SCH (21:38)
[2016-09-18] MEDS: ATIVAN PO SCH (21:38)
[2016-09-18] MEDS: CUBICIN 500 MG in NS 100 ML IV SCH (21:41)
[2016-09-19] MEDS: ZOSYN 2.25 GM/NS 2.25 GM/50 ML IVPB IV SCH ×4 (01:13→14:30)
[2016-09-19] MEDS: NS 1,000 ML IV SCH ×3 (02:57→21:00)
[2016-09-19] MEDS: HYDROCODONE/APAP 7.5-325/15 ML PO PRN ×5 (05:21→23:59)
[2016-09-19 07:19] LABS: AGAP 14; BUN 6 mg/dL (8-22); CALCIUM 8.7 mg/dL (8.8-10.2); CHLORIDE 101 mmol/L (98-107); COSMO 278; SODIUM 140 mmol/L (136-145); TCO2 25 mmol/L (25-35)
[2016-09-19 07:20] LABS: HEMATOCRIT 25.5 % (42.0-52.0); HEMOGLOBIN 7.8 g/dL (14.0-18.0); MCH 28.1 PG (27-31); MCHC 30.6 g/dL (33-37); MCV 91.7 FL (81-99); MPV 10.2 FL (7.4-10.4); RBC 2.78 XMIL (4.7-6.1)
[2016-09-19] MEDS: DUONEB (A & A) INH PRN ×2 (07:33→18:50)
[2016-09-19] MEDS: TAMBOCOR PO SCH (09:05)
[2016-09-19] MEDS: CORTEF PO SCH ×2 (09:05→21:02)
[2016-09-19] MEDS: DIFLUCAN PO SCH (09:07)
[2016-09-19] MEDS: ASPIRIN PO SCH (09:07)
[2016-09-19] MEDS: ELIQUIS PO SCH ×2 (09:07→21:01)
[2016-09-19] MEDS: OXYCONTIN PO SCH ×2 (09:07→21:01)
[2016-09-19] MEDS: LOPRESSOR PO SCH (09:07)
[2016-09-19] MEDS: PAXIL PO SCH (09:10)
--- NOTE | 2016-09-19 13:35 | PROGRESS NOTE ---
DATE: 09/19/2016 SUBJECTIVE: The patient states that the decision has been made to transition him to hospice. In light of this, I will sign off. Please note, he should avoid eating solid meats and dry foods, as he is prone to food impactions. Because of his difficult airway, we are hard pressed to consider repeat endoscopy, except for an emergent situation. His hemoglobin is noted to be 7.8 today. It is reasonable to consider blood transfusion prior to transitioning to hospice which will help with his pulmonary toilet and his oxygen saturation. cc: MD Sera Quick MD Allen J. Schmidt, MD MTDD
--- NOTE | 2016-09-19 13:35 | PROGRESS NOTE ---
DATE: 09/19/2016 He is still having the chest pain. He is a little bit sad and despondent. He understands that there is really no further treatment plan for his cancer and that it is progressing. He did have a talk with hospice and the plan is to go home with hospice. At this point we will continue to treat his pneumonia. He remained afebrile, pulse 77, respirations 17, blood pressure 97/63.Lungs: Are clear in all lung marte. Cardiovascular: Regular rhythm and rate without murmur or S3. Abdomen: Soft. Skin: Is warm and dry. Urine output is 1600 mL. LAB: White count 6170, hematocrit 25, platelet count 339,000. MCV is 91. Chemistry: Sodium 140, potassium 4.0, chloride 101, bicarb 25, BUN 6, creatinine 1.2. Blood sugars have been under good control. ASSESSMENT AND PLAN: 1. Metastatic isc-djbar-rsby cancer. The patient has not been able to receive treatment in over a month due to his general poor state of health. Recent scans have shown that his disease is slowly progressing without treatment. He is not a candidate for any further radiation therapy. He is also again not well enough at this time to proceed with any further chemotherapy so he is wanting to go home with hospice. 2. Chest pain which appears to be atypical, probably musculoskeletal. It may be related to the cancer. 3. Opacification and atelectasis on CT scan. We are treating him for pneumonia of potential infectious infiltrate. Will continue his antibiotics, I think a couple more days. 4. Dysphagia. He has had no further EGDs recommended. He has been counseled to eat soft and pureed food but he continues to eat hamburgers and large chunks of meat. 5. Hodgkin lymphoma. No evidence of recurrence. 6. Renal insufficiency. Creatinine slowly improving. 7. Superior vena cava syndrome status post stenting. He is on Eliquis. 8. Paroxysmal atrial fibrillation, aware. Continue his present medications. I have reviewed orders. I do not see any change at this point. On Zosyn 2.25 mg IV q.6. On Paxil 20 mg a day. Oxycodone ER 50 mg b.i.d. Getting normal saline at 125 mL an hour. Ativan 1 mg at bedtime. Lopressor 50 mg q.a.m. Also getting Ativan p.r.n. q.4 hours for anxiety, hydroxyzine 50 mg q.4 hours p.r.n., Cortef 10 mg p.o. at bedtime gets 20 mg q.a.m. Hydrocodone 7.5 mg q.4-6 hours, Diflucan 100 mg daily, Tambocor 50 mg daily, daptomycin he is getting 500 mg q.24 hours. Aspirin 81 mg a day. Eliquis 5 mg b.i.d. cc: Edi Witt MD
[2016-09-19] MEDS ORDERED: ZOSYN 2.25 GM in NS 50 ML IV SCH ×2 (15:00→16:29)
[2016-09-19] MEDS: PROTONIX IV SCH (18:36)
[2016-09-19] MEDS: SODIUM CHLORIDE 0.9% INJ SCH (18:36)
[2016-09-19] MEDS: CUBICIN 500 MG in NS 100 ML IV SCH (21:00)
[2016-09-19] MEDS: ATIVAN PO SCH (21:01)
[2016-09-19] MEDS: AMBIEN PO SCH (21:01)
[2016-09-19] MEDS: ZOSYN 2.25 GM in NS 50 ML IV SCH (21:38)
[2016-09-20] MEDS: ZOSYN 2.25 GM in NS 50 ML IV SCH ×4 (03:00→20:54)
[2016-09-20] MEDS: NS 1,000 ML IV SCH ×3 (03:36→18:15)
[2016-09-20] MEDS: HYDROCODONE/APAP 7.5-325/15 ML PO PRN ×4 (03:51→22:38)
[2016-09-20] MEDS: ELIQUIS PO SCH ×2 (09:23→21:11)
[2016-09-20] MEDS: DIFLUCAN PO SCH (09:23)
[2016-09-20] MEDS: ASPIRIN PO SCH (09:23)
[2016-09-20] MEDS: CORTEF PO SCH ×2 (09:23→21:11)
[2016-09-20] MEDS: TAMBOCOR PO SCH (09:24)
[2016-09-20] MEDS: PAXIL PO SCH (09:24)
[2016-09-20] MEDS: LOPRESSOR PO SCH (09:24)
[2016-09-20] MEDS: OXYCONTIN PO SCH ×2 (09:29→21:10)
[2016-09-20] MEDS: DUONEB (A & A) INH PRN ×2 (10:09→20:24)
--- NOTE | 2016-09-20 12:14 | PROGRESS NOTE ---
DATE: 09/20/2016 SUBJECTIVE: Mr. Greenberg in the room by himself. He appears comfortable. He reports that he still does not feel well. OBJECTIVE: Vital Signs: Temperature 98.0 degrees, heart rate 88, respirations 18, blood pressure 111/57, O2 saturation 96% on 2L nasal cannula. ASSESSMENT AND PLAN: Metastatic non-small cell lung cancer. The patient is not currently a candidate for any further treatment given his overall condition. The patient reports to me today that he has accepted hospice and will be transitioned to hospice at discharge. We agree with this discharge plan. The patient is told he can contact our office with any further questions. He can also come in p.r.n. Dictated by SUKHI Sutherland for Sera Iqbal MD cc: Sera Iqbal MD I have seen and examined Mr. Greenberg and agree with the above A/P. Sera Iqbal MD [facility]
[2016-09-20] MEDS ORDERED: IMODIUM PO PRN (12:20)
--- NOTE | 2016-09-20 16:29 | PROGRESS NOTE ---
DATE: 09/20/2016 SUBJECTIVE: He feels about the same. He had a discussion with hospice, but he needs to talk to Dr. Sera Iqbal. He has metastatic non-small cell lung cancer. Patient is not currently a candidate for any further treatment given his overall condition. He reports that he had accepted hospice and will be transferred to hospice on discharge, but he is not ready to go. He would like to see if we could treat him further, and I think we can continue to try and treat the pneumonia. The family, the and brother, do not want us to, has some apprehension about his discussing his condition and the fact that there seems to be extension of cancer. And he is having difficulty swallowing although he continues to want a regular diet. He is not a candidate for another EGD or dilatation. OBJECTIVE: On exam today, he is afebrile, pulse 79, respirations 16, blood pressure 105/58.Respiratory: Lungs are clear in all lung marte. Cardiovascular: Regular rhythm and rate. Abnormal S3. Abdomen: Soft. Skin: Warm and dry. Genitourinary: Urine output is over 6 L. DIAGNOSTIC DATA: Lab reviewed from the . His CT of the chest done on 09/16, patchy pneumonitis right upper and lower lobes, worsened left pleural effusion. ASSESSMENT AND PLAN: 1. Metastatic non-small cell cancer. The patient has not been able to receive treatment over a long time due to poor health. We can continue to treat his pneumonia. He had Peggy esophagitis. He has had dysphagia because of esophageal irritation and stricture. Not a candidate for EGD because of high risk. Encourage puree diet but he continues to want regular diet. 2. Chest pain which appears atypical musculoskeletal and I suspect it is related to his cancer. 3. Opacification and atelectasis on the CAT scan. Treating him for pneumonia. Also suspect cancer load may be increasing as well. 4. Hodgkin lymphoma in the past, no evidence of recurrence. 5. Renal insufficiency. 6. Superior vena cava syndrome. He has a stent placed. He is on Eliquis. 7. Paroxysmal atrial fibrillation. Aware. 8. Review of his lab: Hematocrit 25. Chemistries, electrolytes: Creatinine 1.2. I do not see any change in our therapy at this time. We will continue piperacillin 2.25 mg IV q.6, recheck another chest x-ray in the morning. cc: Edi Witt MD
[2016-09-20] MEDS: SODIUM CHLORIDE 0.9% INJ SCH (17:57)
[2016-09-20] MEDS: PROTONIX IV SCH (17:57)
[2016-09-20] MEDS: CUBICIN 500 MG in NS 100 ML IV SCH (21:06)
[2016-09-20] MEDS: ATIVAN PO SCH (21:11)
[2016-09-20] MEDS: AMBIEN PO SCH (21:11)
[2016-09-21] MEDS: NS 1,000 ML IV SCH ×3 (03:25→19:27)
[2016-09-21] MEDS: ZOSYN 2.25 GM in NS 50 ML IV SCH ×4 (03:25→20:46)
[2016-09-21] MEDS: HYDROCODONE/APAP 7.5-325/15 ML PO PRN ×4 (04:51→20:06)
--- NOTE | 2016-09-21 07:22 | Diag Imaging Result Doc PS360 ---
EXAM: CHEST-PORTABLE HISTORY: pneumonia TECHNIQUE: AP portable at 0500 COMMENT: The atelectasis or pneumonia in the right middle lobe which was present on 09/16/2016 is slightly improved. Otherwise has been no significant change. IMPRESSION: Improving right middle lobe atelectasis. Electronically signed by Charles Mccarthy 09/21/2016 7:20 AM
[2016-09-21] MEDS: DIFLUCAN PO SCH (09:51)
[2016-09-21] MEDS: OXYCONTIN PO SCH ×2 (09:51→20:47)
[2016-09-21] MEDS: PAXIL PO SCH (09:51)
[2016-09-21] MEDS: ASPIRIN PO SCH (09:51)
[2016-09-21] MEDS: LOPRESSOR PO SCH (09:51)
[2016-09-21] MEDS: CORTEF PO SCH ×2 (09:51→20:48)
[2016-09-21] MEDS: ELIQUIS PO SCH ×2 (09:52→20:47)
[2016-09-21] MEDS: TAMBOCOR PO SCH (09:52)
--- NOTE | 2016-09-21 11:49 | PROGRESS NOTE ---
DATE: 09/21/2016 SUBJECTIVE: He reports that he is feeling pretty good. No pain today. Still pretty puny. He has remained afebrile. OBJECTIVE: Vital signs: Temperature 97.8 degrees, pulse 100, respirations 15, blood pressure 106/64. Lungs: Clear. Anterolateral. Cardiovascular exam: Regular rhythm and rate without murmur or S3. Abdomen: Soft. Skin: Warm and dry. : Urine output 1800 mL. LAB: No new lab today. Reviewed the lab from the . Serum creatinine stable at 1.4. ASSESSMENT AND PLAN: 1. Note also we did a chest x-ray this morning. Treating him for right middle lobe pneumonia, atelectasis that seems to be improving. Radiographically breathing better. The pain is diminished. 2. Atypical chest pain which I suspect is musculoskeletal. We will continue present measures. I think he wants to go home with hospice, but I think he would like to try for Sunday, and I think he would benefit from an at least another 48 hours of intravenous antibiotic. 3. Esophageal stricture. Continue to encourage him to chew his food well. cc: Edi Witt MD
[2016-09-21] MEDS: SODIUM CHLORIDE 0.9% INJ SCH (18:16)
[2016-09-21] MEDS: PROTONIX IV SCH (18:16)
[2016-09-21] MEDS: DUONEB (A & A) INH PRN (19:42)
[2016-09-21] MEDS: CUBICIN 500 MG in NS 100 ML IV SCH (20:06)
[2016-09-21] MEDS: ATIVAN PO SCH (20:47)
[2016-09-21] MEDS: AMBIEN PO SCH (20:47)
[2016-09-22] MEDS: ZOSYN 2.25 GM in NS 50 ML IV SCH ×4 (02:42→21:07)
[2016-09-22] MEDS: HYDROCODONE/APAP 7.5-325/15 ML PO PRN ×2 (02:43→13:14)
[2016-09-22] MEDS: NS 1,000 ML IV SCH ×2 (05:03→14:19)
[2016-09-22] MEDS: ASPIRIN PO SCH (08:16)
[2016-09-22] MEDS: LOPRESSOR PO SCH (08:16)
[2016-09-22] MEDS: ELIQUIS PO SCH ×2 (08:17→21:08)
[2016-09-22] MEDS: DIFLUCAN PO SCH (08:17)
[2016-09-22] MEDS: CORTEF PO SCH ×2 (08:17→21:09)
[2016-09-22] MEDS: PAXIL PO SCH (08:17)
[2016-09-22] MEDS: TAMBOCOR PO SCH (08:17)
[2016-09-22] MEDS: OXYCONTIN PO SCH ×2 (08:25→21:13)
[2016-09-22] MEDS: DUONEB (A & A) INH PRN ×2 (09:23→13:07)
--- NOTE | 2016-09-22 14:32 | PROGRESS NOTE ---
DATE: 09/22/2016 SUBJECTIVE: Mr. Greenberg says he is just not having a good day and does not feel very good. He is eating okay by his report. Breathing is comfortable.Vital signs: Temperature 98.2 degrees, pulse 90, respirations 14, blood pressure 130/69. Eyes: Pupils are equal and round. Lungs: Clear in all lung marte. Cardiovascular exam: Regular rhythm and rate without murmur or S3. Abdomen: Soft. Skin: Warm and dry. : Urine output over 1000 mg. LAB: Reviewed lab from the . Magnesium is down to 1.4. ASSESSMENT AND PLAN: 1. General weakness, general malaise about the same. He has metastatic non small-cell lung cancer and no plans for treatment at this point. He has had Peggy esophagitis. He has esophageal stricture and encouraged him to continue to chew his food well. He has been recommended to have a soft pureed diet, but he continues regular diet, but so far has been able to keep the food down. 2. Chest pain which is atypical, about the same. 3. Opacification atelectasis on CAT scan. Suspect predominantly from his tumor load, but treating for postobstructive pneumonia. 4. Hodgkin lymphoma in the past. 5. Renal insufficiency. 6. 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 He is on Eliquis. 7. Paroxysmal atrial fibrillation. Rate has been controlled. 8. Anemia. We are continuing to watch his blood count. Hemoglobin 7.8, hematocrit 25. May consider transfusion and see if that will help him feel better. cc: Edi Witt MD
[2016-09-22] MEDS ORDERED: MAGNESIUM SULFATE 2 GM/S.W.I. 2 GM/50 ML IVPB IV ONE (15:00)
--- NOTE | 2016-09-22 15:22 | PROGRESS NOTE ---
DATE: 09/22/2016 SUBJECTIVE: Mr. Greenberg is lying in hospital bed. There is no one by bedside. He reports that he feels no better than when he was 1st admitted. He has no new complaints. OBJECTIVE: VITAL SIGNS: Temperature 98.1 degrees, heart rate 86, respirations 12, blood pressure 128/68, O2 saturation 98% on room air. LABS: No new labs. PHYSICAL EXAM: CV: S1, S2 heard. No murmurs, gallops, rubs appreciated. Respiratory: Chest with some coarse breath sounds. No rhonchi noted. Gastrointestinal: Abdomen is obese and soft and nontender. Extremities: Patient has trace bilateral extremity edema noted. ASSESSMENT AND PLAN: 1. Metastatic/recurrent non-small cell lung cancer. The patient is not a surgical candidate and patient is not a candidate for any further radiation therapy. His performance status his overall condition is not well enough to proceed with any further chemotherapy treatments at this time. In addition, chemotherapy is unlikely to improve his symptoms significantly. We have discussed with the patient as well as the family that hospice is recommended. The patient has reported that he has agreed to hospice but wants to wait to be discharged until Sunday. He reiterated that he does want to go home on hospice. We did discuss how no further treatments for his cancer are planned at this time. 2. Pneumonia. Continue current management. 3. Superior vena cava syndrome status post stent. Patient will need to continue Eliquis. 4. Paroxysmal atrial fibrillation. Rate controlled. 5. Atypical chest pain. Continue pain management. 6. Dysphagia. Related to cancer. Continue current management. Dictated by SUKHI Sutherland for Sera Iqbal MD cc: Sera Iqbal MD I have seen and examined the patient and agree with the above A/P. Sera MOSLEY
[2016-09-22] MEDS: PROTONIX IV SCH (17:54)
[2016-09-22] MEDS: SODIUM CHLORIDE 0.9% INJ SCH (17:55)
[2016-09-22] MEDS: CUBICIN 500 MG in NS 100 ML IV SCH (20:14)
[2016-09-22] MEDS: MAG-OX PO SCH (21:08)
[2016-09-22] MEDS: AMBIEN PO SCH (21:12)
[2016-09-22] MEDS: ATIVAN PO SCH (21:13)
[2016-09-23] MEDS: ZOSYN 2.25 GM in NS 50 ML IV SCH ×2 (02:28→08:55)
[2016-09-23] MEDS: HYDROCODONE/APAP 7.5-325/15 ML PO PRN ×4 (05:30→18:15)
[2016-09-23] MEDS: NS 1,000 ML IV SCH (05:57)
[2016-09-23 06:44] LABS: MANUAL DIFF NEEDED? NO
[2016-09-23 06:49] LABS: BASO% 0.2 % (0.0-0.8); EOS# 0.46 X1000 (0.0-0.7); EOS% 7.1 % (0.0-10.0); HEMATOCRIT 27.3 % (42.0-52.0); HEMOGLOBIN 8.2 g/dL (14.0-18.0); IMM GRAN# 0.03 X1000 (0.0-0.04); IMM GRAN% 0.5 % (0.0-0.5); LYMPH# 0.91 X1000 (1.2-3.4); LYMPH% 14.1 % (20.5-51.1); MCH 27.2 PG (27-31); MCV 90.4 FL (81-99); MONO# 0.73 X1000 (0.11-0.59); MONO% 11.3 % (1.7-9.3); MPV 9.5 FL (7.4-10.4); NEUT% 66.8 % (42.2-75.2); PLT 407 X1000 (130-400); RBC 3.02 XMIL (4.7-6.1)
[2016-09-23] MEDS: CORTEF PO SCH ×2 (08:54→22:17)
[2016-09-23] MEDS: MAG-OX PO SCH (08:54)
[2016-09-23] MEDS: ASPIRIN PO SCH (08:55)
[2016-09-23] MEDS: ELIQUIS PO SCH ×2 (08:55→22:17)
[2016-09-23] MEDS: TAMBOCOR PO SCH (08:55)
[2016-09-23] MEDS: DIFLUCAN PO SCH (08:55)
[2016-09-23] MEDS: PAXIL PO SCH (08:56)
[2016-09-23] MEDS: LOPRESSOR PO SCH (08:56)
[2016-09-23] MEDS: OXYCONTIN PO SCH ×3 (08:56→22:17)
[2016-09-23] MEDS ORDERED: OXYCONTIN PO ONE (09:45)
--- NOTE | 2016-09-23 10:28 | PROGRESS NOTE ---
DATE: 09/23/2016 SUBJECTIVE: Mr. Greenberg chief complaint is that of pain is poorly controlled. He is needing his medicine very regularly at this time. He is doing better with the pain medicine in liquid form per his . OBJECTIVE: Temperature 98 degrees, pulse 89, respiratory rate 12, blood pressure 116/68, O2 saturation 96% on room air. General: This is a chronically ill-appearing, overweight, man in no acute distress. Eyes: Sclerae anicteric. is at bedside. Cardiovascular: Regular rate and rhythm. Normal S1, S2. No murmurs, rubs, or gallops. Pulmonary: Lungs are clear to auscultation bilaterally without wheezes, rales, or rhonchi. GI: Abdomen is soft, obese, but nontender, nondistended with normoactive bowel sounds. Rest of exam is unchanged. LABORATORY DATA: White count 6.44, hemoglobin 8.2, platelet count 407,000. ASSESSMENT AND PLAN: 1. Metastatic non-small cell lung cancer, recurrent: He is status post multiple lines of therapy and is no longer a candidate for therapy given his declining performance status. I have recommended hospice placement which is scheduled for Sunday. 2. Postobstructive pneumonia: The patient is on antibiotics but has lost his IV access. We will switch him over to oral antibiotics at this time. 3. Superior vena cava syndrome: He is status post stent placement and continues on Eliquis at this time. 4. Pain: I will adjust his pain medications today for better pain control. PLAN: Still for hospice discharge for Sunday. cc: Sera Iqbal MD
[2016-09-23] MEDS: DUONEB (A & A) INH PRN ×3 (10:53→23:58)
--- NOTE | 2016-09-23 11:52 | PROGRESS NOTE ---
DATE: 09/23/2016 Mr. Greenberg said he did not eat much for breakfast. Had a hard time getting food to go down. He has remained afebrile. Feels about the same. I think his plan is still to try and go home on Sunday. Temp is 98.0 degrees, pulse 79, respirations 16, blood pressure 116/68. Lungs: Are clear in all lung marte. Cardiovascular: Regular rhythm and rate without murmur or S3. Abdomen: Soft. Skin: Is warm and dry. LAB: Reviewed from the . Hematocrit 26, hemoglobin 8.2. White blood cell count 6444, platelet count 407,000. Chest x-ray repeated on the , prerenal right middle lobe atelectasis. ASSESSMENT AND PLAN: 1. Metastatic non-small cell lung cancer recurrent. He is status post multiple lines of therapy and is no longer a candidate for therapy given his decline in performance status. Recommend hospice placement which is scheduled for Sunday. 2. Postobstructive pneumonia. The patient on antibiotics, has lost his IV access. Will switch him over to p.o. antibiotics. 3. Superior vena cava syndrome status post stent placement. Continue his Eliquis at this time. So we will keep his IV out and will change his antibiotics over to p.o. cc: Edi Witt MD
[2016-09-23] MEDS: LEVAQUIN PO SCH (12:15)
[2016-09-23] MEDS: AMBIEN PO SCH (22:16)
[2016-09-23] MEDS: ATIVAN PO SCH (22:17)
[2016-09-24] MEDS: HYDROCODONE/APAP 7.5-325/15 ML PO PRN ×3 (00:52→17:11)
[2016-09-24] MEDS: DUONEB (A & A) INH PRN ×2 (09:15→23:02)
[2016-09-24] MEDS: LEVAQUIN PO SCH (09:20)
[2016-09-24] MEDS: CORTEF PO SCH ×2 (09:21→21:25)
[2016-09-24] MEDS: LOPRESSOR PO SCH (09:21)
[2016-09-24] MEDS: PAXIL PO SCH (09:21)
[2016-09-24] MEDS: ASPIRIN PO SCH (09:21)
[2016-09-24] MEDS: ELIQUIS PO SCH ×2 (09:21→21:25)
[2016-09-24] MEDS: TAMBOCOR PO SCH (09:21)
[2016-09-24] MEDS: OXYCONTIN PO SCH ×2 (09:42→21:25)
--- NOTE | 2016-09-24 14:16 | PROGRESS NOTE ---
DATE: 09/24/2016 SUBJECTIVE: Mr. Greenberg says he is feeling a little better today. He is asking for more pain medicine though and seems to be pretty lethargic. Family has requested that we cut down a little bit on the pain medicine. EXAM: Vital signs: Today temperature 97.6 pulse 76, respirations 12, blood pressure 82/42. Lungs: Clear in all lung marte. Cardiovascular: Regular rhythm, rate without murmur or S3. Abdomen: Soft. Skin: Warm and dry. ASSESSMENT AND PLAN: 1. Metastatic non-small cell cancer recurrent. No further treatment plan at this time. Continue. I am going to back down a little bit on his pain medicine at the family's request and I think the plan is to go home with hospice tomorrow. 2. Postobstructive pneumonia which is better and he is on p.o. antibiotics. 3. Superior vena cava syndrome with status post stent, will see how we do today, we may want to cut down his oxycodone when he goes home. Review his orders, no change at this time. cc: Edi Witt MD
[2016-09-24] MEDS: AMBIEN PO SCH (21:25)
[2016-09-24] MEDS: ATIVAN PO SCH (21:25)
[2016-09-25] MEDS: HYDROCODONE/APAP 7.5-325/15 ML PO PRN ×2 (07:25→20:25)
[2016-09-25] MEDS: CORTEF PO SCH ×2 (09:30→20:24)
[2016-09-25] MEDS: PAXIL PO SCH (09:30)
[2016-09-25] MEDS: LEVAQUIN PO SCH (09:30)
[2016-09-25] MEDS: ELIQUIS PO SCH ×2 (09:31→20:24)
[2016-09-25] MEDS: TAMBOCOR PO SCH (09:31)
[2016-09-25] MEDS: LOPRESSOR PO SCH (09:31)
[2016-09-25] MEDS: ASPIRIN PO SCH (09:32)
[2016-09-25] MEDS: OXYCONTIN PO SCH (09:39)
[2016-09-25] MEDS: DUONEB (A & A) INH PRN ×2 (10:37→15:24)
--- NOTE | 2016-09-25 17:57 | PROGRESS NOTE ---
DATE: 09/25/2016 SUBJECTIVE: He stated he did not feel real good today. He seemed a little bit lethargic. OBJECTIVE: Vital Signs: Temp 98.0 degrees, pulse 80, respirations 20, blood pressure 108/61. Lungs: Clear in all lung marte. Cardiovascular Examination: Regular rhythm and rate without murmur or S3. Abdomen: Soft. Skin: Warm and dry. Urine output: 1600 mL. LABS: Labs reviewed from the . Chemistries reviewed from the . ASSESSMENT AND PLAN: 1. Metastatic [id number] cancer. No further treatment. Plan is to go home with hospice. Family asked if he could go home tomorrow. They are trying to get a hospital bed and bedside commode. 2. Postobstructive pneumonia. He has been on p.o. antibiotics. Doing much better. 3. Superior vena cava syndrome. He is status post stent. 4. Esophageal stricture and history of esophagitis. He has to be real careful. He has been told to stick to pureed foods but he is eating a regular diet. He is able to get his food down. At the present time on fairly high doses of pain medicines. He stays lethargic a good portion of the time but he is actually requesting more so we will continue the present regimen. cc: Edi Witt MD
[2016-09-25] MEDS: AMBIEN PO SCH (20:24)
[2016-09-25] MEDS: ATIVAN PO SCH (20:24)
[2016-09-26] MEDS: HYDROCODONE/APAP 7.5-325/15 ML PO PRN ×4 (08:45→22:23)
[2016-09-26] MEDS: ASPIRIN PO SCH (08:51)
[2016-09-26] MEDS: ELIQUIS PO SCH ×2 (08:51→21:06)
[2016-09-26] MEDS: CORTEF PO SCH ×2 (08:52→21:06)
[2016-09-26] MEDS: LEVAQUIN PO SCH (08:55)
[2016-09-26] MEDS: TAMBOCOR PO SCH (08:55)
[2016-09-26] MEDS: LOPRESSOR PO SCH (08:55)
[2016-09-26] MEDS: PAXIL PO SCH (08:55)
[2016-09-26] MEDS: DUONEB (A & A) INH PRN ×3 (09:11→22:16)
--- NOTE | 2016-09-26 13:14 | PROGRESS NOTE ---
DATE: 09/26/2016 SUBJECTIVE: Today, Mr. Greenberg referred to be doing relatively stable. My understanding is that he is discharged and we are just waiting on hospice arrangements for him to go home. OBJECTIVE: Vital signs: Blood pressure is 87/37, pulse of 82, respirations 18, and temperature 94.4 degrees. General: Mr. Greenberg is a 41-year-old, morbidly obese gentleman. He is in bed, no distress. HEENT: Mucosa is pink and moist. Anicteric. Acyanotic. Neck: Supple. Chest: Air entry is bilaterally reduced. Abdomen: Soft. Extremities: No pedal edema. MANAGER FLOAT: Patient is awake, alert, oriented. No focal neurological deficit. LABORATORY DATA: None for today. ASSESSMENT: 1. Metastatic non-small cell lung cancer. 2. Postobstructive pneumonia. Patient is doing fine. 3. Superior vena cava syndrome. 4. Esophageal stricture and history of esophagitis. PLAN: In general, I understand Mr. Greenberg is being discharged home on hospice. We are pending final arrangements to have him discharged. cc: Jose E Covarrubias MD
--- NOTE | 2016-09-26 15:11 | PROGRESS NOTE ---
DATE: 09/26/2016 SUBJECTIVE: Mr. Greenberg is overall doing about the same. He was due to go home yesterday on hospice but this discharge has been delayed. OBJECTIVE: Vital Signs: Temperature 98.4 degrees, heart rate 82, respirations 20, blood pressure 87/44, O2 saturation 94% on room air. LABS: No new labs for today. ASSESSMENT AND PLAN: 1. Recurrent metastatic non-small cell lung cancer. Again, patient has had multiple lines of therapy and is not felt to be a candidate for any further therapy at this time. The patient continues to have a declining performance status. The family has met with hospice and has agreed to be discharged with hospice. Arrangements with hospice are being made at this time. From our standpoint, the patient can be discharged home with hospice whenever things are ready. 2. Postobstructive pneumonia. Patient is currently on oral antibiotics. 3. SVC syndrome, status post stenting. Continue on Eliquis 5 mg b.i.d. 4. Hypotension. Likely secondary to his pain medications. Those were adjusted over the weekend. His OxyContin 40 mg has been discontinued at this time. The patient is awake and alert. He has no tachycardia or any evidence of any arrhythmias at this time. DISPOSITION: Home with hospice once arrangements have been completed. Dictated by SUKHI Sutherland for Sera Iqbal MD cc: Sera Iqbal MD I have seen and examined the patient and agree with the above A/P. Sera MOSLEY
[2016-09-26] MEDS: AMBIEN PO SCH (21:06)
[2016-09-26] MEDS: ATIVAN PO SCH (21:07)
[2016-09-27] MEDS: DUONEB (A & A) INH PRN ×2 (04:29→09:35)
[2016-09-27 07:23] VITALS: BP 112/60
[2016-09-27] MEDS: ELIQUIS PO SCH (09:13)
[2016-09-27] MEDS: LEVAQUIN PO SCH (09:13)
[2016-09-27] MEDS: CORTEF PO SCH (09:13)
[2016-09-27] MEDS: ASPIRIN PO SCH (09:14)
[2016-09-27] MEDS: TAMBOCOR PO SCH (09:14)
[2016-09-27] MEDS: LOPRESSOR PO SCH (09:14)
[2016-09-27] MEDS: PAXIL PO SCH (09:14)
[2016-09-27] MEDS ORDERED: HYDROCODONE/APAP 7.5-325/15 ML PO PRN (11:53)
[2016-09-27] MEDS ORDERED: PHENERGAN PO PRN (11:53)
--- NOTE | 2016-09-27 16:13 | DISCHARGE SUMMARY ---
ADMISSION DATE: 09/16/2016 DISCHARGE DATE: 09/27/2016 CONSULTATIONS: 1. Edie Sotomayor MD with Gastroenterology. 2. Sera Iqbal MD with Hematology/Oncology PERTINENT PROCEDURES: Chest CT showed patchy pneumonitis in the right upper and lower lobes not present on worsened left pleural effusion. DISCHARGE DIAGNOSES: 1. Recurrent metastatic non-small cell lung cancer. The patient has had multiple lines of therapy and was not felt to be a candidate for any further therapy. Continues to have a declining performance status. The family and patient met with hospice and it was agreed to be discharged home with hospice. He will be discharged home with [facility] today. 2. Postobstructive pneumonia. 3. Superior vena cava syndrome status post stenting. 4. Hypotension secondary to pain medication. Adjustments have been made by Hematology. Again he is being discharged home with [facility]. 5. Esophageal stricture and history of esophagitis, however, patient is noncompliant. He typically consumes chicken, beef as well as other meats on a regular basis that have resulted in food impactions. Dr. Sotomayor recommended full liquid to soft food diet which he tolerates at home. He does not tolerate chicken or soft meats that salted. She does not recommend performing any endoscopy given his level of difficulty. They have had intubation in performing his endoscopy. She recommended conservative management. HOSPITAL COURSE: Mr. Greenberg is an unfortunate 41-year-old male well known to our service with a history of Hodgkin's lymphoma in remission, small-cell lung cancer, SVC syndrome , paroxysmal atrial fibrillation and multiple others, most recently discharged from our service on 08/28/2016. At that time he was admitted for pneumonia, acute kidney injury and sepsis. He had been having left-sided chest pain and shortness of breath a week prior to his admission. He reported occasional fevers, mild nausea and vomiting which is constant for him, difficulty swallowing, and he is also known to have candidal esophagitis and esophageal stricture, followed by Dr. Sotomayor as well. They did come to the ED on 09/12/2016 and at that time he had a CTA of the chest done that revealed narrowing to the arteries in the right hilum secondary to adenopathy which was questionable mildly advanced compared to prior. There is postobstructive atelectasis and infiltrates which are prominent. X-ray taken in the ED showed right middle lobe atelectasis. His laboratory data showed anemia with creatinine 1.6 and a proBNP of 50 to 61. He has generalized weakness and shortness of breath whether he is lying, sitting or standing, and chronic edema from his other comorbidities. He was admitted with GI and Oncology consultations. He was started on IV antibiotics. We trended his cardiac enzymes. We started him on bronchodilators, supplemental O2. Dr. Sotomayor just recommended conservative management. In light of his disease progression and level of difficulty, they have him intubated in performing his endoscopy and also he is extremely noncompliant when it comes to his recommended diet of a full liquid to soft diet. He typically consumes chicken and beef as well as other meats on a regular basis that have resulted in food impactions. HEM/ONC had a discussion with the patient and his family. Recent scans have showed that the disease is slowly progressing and that he is not a candidate for any further radiation therapy, and that he is not well enough to proceed with any further chemotherapy , and they need to proceed with hospice given his declining performance status and limited treatment options despite his young age. Mr. Greenberg is being discharged home with [facility] today. VITAL SIGNS AT TIME OF DISCHARGE: Temperature is 98.5 degrees, heart rate 98, respirations 18, blood pressure 112/60, O2 is 95% on room air. DISCHARGE MEDICATIONS: As per Dr. Covarrubias. DISPOSITION: Mr. Greenberg is being discharged home with [facility]. Time spent for discharge 45 minutes. Dictated by CRISTOBAL Barreto for Jose E Covarrubias MD cc: Jose E Covarrubias MD I have seen and examined this patient today. Patient is clinically stable for discharge. Please follow instructions outlined above. MTDD
== END 2016-09-27 13:41 | disposition hospice, home (50) ==
LOC: ED 15:10 → 3N 17:58 → SUATTDRO 17:58
PROVIDERS: ATTEND Internal Medicine

== ENCOUNTER 2016-10-05 11:29 | Inpatient (IN) ==
[2016-10-05] MEDS: LR 1,000 ML IV SCH ×2 (14:24→23:39)
[2016-10-05] MEDS: HYDROCODONE/APAP 7.5-325/15 ML PO PRN ×2 (15:24→21:00)
[2016-10-05] MEDS: HEPARIN 25,000 UNITS/D5W 25,000 UNIT/250 ML IV.SOLN IV SCH (16:33)
[2016-10-05 17:00] LABS: MANUAL DIFF NEEDED? NO
[2016-10-05 17:03] LABS: BASO% 0.1 % (0.0-0.8); EOS# 0.16 X1000 (0.0-0.7); EOS% 2.1 % (0.0-10.0); HEMATOCRIT 31.8 % (42.0-52.0); HEMOGLOBIN 9.7 g/dL (14.0-18.0); IMM GRAN# 0.03 X1000 (0.0-0.04); IMM GRAN% 0.4 % (0.0-0.5); LYMPH# 1.01 X1000 (1.2-3.4); LYMPH% 13.5 % (20.5-51.1); MCH 26.9 PG (27-31); MCHC 30.5 g/dL (33-37); MCV 88.3 FL (81-99); MONO# 0.76 X1000 (0.11-0.59); MONO% 10.2 % (1.7-9.3); NEUT% 73.7 % (42.2-75.2); PLT 358 X1000 (130-400)
[2016-10-05 17:39] LABS: AGAP 13; ALBUMIN 3.2 g/dL (3.5-5.0); ALKALINE PHOSPHATASE 70 U/L (32-122); BUN 8 mg/dL (8-22); CALCIUM 8.5 mg/dL (8.8-10.2); CHLORIDE 101 mmol/L (98-107); CK PROFILE 38 U/L (24-204); COSMO 280; GOT 9 U/L (10-34); GPT 5 U/L (10-44); POTASSIUM 3.7 mmol/L (3.5-5.1); SODIUM 141 mmol/L (136-145); TCO2 27 mmol/L (25-35); TOTAL BILIRUBIN 0.54 mg/dL (0.20-1.00); TOTAL PROTEIN 6.6 g/dL (6.3-8.3)
[2016-10-05] MEDS: PHENERGAN IV PRN ×2 (17:55→23:40)
[2016-10-05] MEDS: DUONEB (A & A) INH SCH ×2 (19:44→22:55)
[2016-10-05] MEDS: SODIUM CHLORIDE 0.9% INJ PRN (23:40)
[2016-10-06] MEDS: DUONEB (A & A) INH SCH ×6 (03:31→23:04)
[2016-10-06] MEDS: HYDROCODONE/APAP 7.5-325/15 ML PO PRN ×4 (03:52→20:31)
[2016-10-06] MEDS: ZOFRAN IV PRN (03:52)
[2016-10-06] MEDS: LR 1,000 ML IV SCH (06:20)
[2016-10-06] MEDS: HEPARIN 25,000 UNITS/D5W 25,000 UNIT/250 ML IV.SOLN IV SCH ×2 (06:20→09:21)
[2016-10-06 09:29] LABS: AGAP 17; BUN 7 mg/dL (8-22); CALCIUM 8.5 mg/dL (8.8-10.2); CHLORIDE 98 mmol/L (98-107); COSMO 274; MAGNESIUM 1.5 mg/dL (1.5-2.7); POTASSIUM 3.7 mmol/L (3.5-5.1); SODIUM 138 mmol/L (136-145); TCO2 23 mmol/L (25-35)
[2016-10-06] MEDS ORDERED: HEPARIN 25,000 UNITS/D5W 25,000 UNIT/250 ML IV.SOLN IV SCH ×5 (11:22→23:00)
[2016-10-06] MEDS: CLINIMIX E 4.25%-5% SOLUTION 1,000 ML IV SCH ×2 (12:33→20:33)
[2016-10-06] MEDS ORDERED: HEPARIN IV ONE (14:34)
[2016-10-06] MEDS ORDERED: PHENERGAN PO PRN (15:55)
[2016-10-06] MEDS: ATIVAN PO SCH (20:27)
[2016-10-06] MEDS: CORTEF PO SCH (20:27)
[2016-10-06] MEDS: AMBIEN PO SCH (20:27)
[2016-10-06] MEDS: OXYCONTIN PO SCH (20:28)
[2016-10-06] MEDS: PHENERGAN IV PRN (23:06)
[2016-10-06] MEDS: SODIUM CHLORIDE 0.9% INJ PRN (23:06)
[2016-10-07] MEDS: HYDROCODONE/APAP 7.5-325/15 ML PO PRN ×3 (03:40→17:42)
[2016-10-07] MEDS: HYDROXYZINE PO PRN (03:44)
[2016-10-07] MEDS: DUONEB (A & A) INH SCH ×6 (03:55→22:55)
[2016-10-07] MEDS: PRILOSEC PO SCH (06:35)
[2016-10-07] MEDS: CLINIMIX E 4.25%-5% SOLUTION 1,000 ML IV SCH ×3 (06:40→18:06)
[2016-10-07] MEDS: HEPARIN 25,000 UNITS/D5W 25,000 UNIT/250 ML IV.SOLN IV SCH ×3 (07:03→13:56)
[2016-10-07] MEDS: TAMBOCOR PO SCH (08:17)
[2016-10-07] MEDS: LOPRESSOR PO SCH ×2 (08:17→08:24)
[2016-10-07] MEDS: PAXIL PO SCH (08:17)
[2016-10-07] MEDS: OXYCONTIN PO SCH ×2 (08:17→20:15)
[2016-10-07] MEDS: CORTEF PO SCH ×2 (08:18→20:15)
[2016-10-07] MEDS: AMBIEN PO SCH (20:15)
[2016-10-07] MEDS: ATIVAN PO SCH (20:15)
[2016-10-08] MEDS: DUONEB (A & A) INH SCH ×6 (03:10→23:00)
[2016-10-08] MEDS: CLINIMIX E 4.25%-5% SOLUTION 1,000 ML IV SCH ×5 (06:31→21:20)
[2016-10-08] MEDS: HEPARIN 25,000 UNITS/D5W 25,000 UNIT/250 ML IV.SOLN IV SCH ×3 (06:31→17:29)
[2016-10-08] MEDS: PRILOSEC PO SCH (06:32)
[2016-10-08] MEDS: LOPRESSOR PO SCH (08:34)
[2016-10-08] MEDS: OXYCONTIN PO SCH ×2 (08:34→20:12)
[2016-10-08] MEDS: TAMBOCOR PO SCH (08:35)
[2016-10-08] MEDS: PAXIL PO SCH (08:35)
[2016-10-08] MEDS: CORTEF PO SCH ×2 (08:35→20:12)
[2016-10-08] MEDS: HYDROCODONE/APAP 7.5-325/15 ML PO PRN ×2 (08:39→17:33)
[2016-10-08] MEDS: ZOFRAN IV PRN (17:34)
[2016-10-08] MEDS: ATIVAN PO SCH (20:13)
[2016-10-08] MEDS: AMBIEN PO SCH (20:13)
[2016-10-09] MEDS: DUONEB (A & A) INH SCH ×6 (03:05→23:40)
[2016-10-09] MEDS: HEPARIN 25,000 UNITS/D5W 25,000 UNIT/250 ML IV.SOLN IV SCH ×6 (03:25→23:59)
[2016-10-09] MEDS: CLINIMIX E 4.25%-5% SOLUTION 1,000 ML IV SCH ×4 (05:07→21:09)
[2016-10-09] MEDS: HYDROCODONE/APAP 7.5-325/15 ML PO PRN ×2 (06:05→21:39)
[2016-10-09] MEDS ORDERED: HEPARIN IV ONE ×2 (09:01→16:47)
[2016-10-09] MEDS: PAXIL PO SCH (09:12)
[2016-10-09] MEDS: TAMBOCOR PO SCH (09:12)
[2016-10-09] MEDS: CORTEF PO SCH ×2 (09:12→21:04)
[2016-10-09] MEDS: LOPRESSOR PO SCH (09:12)
[2016-10-09] MEDS: OXYCONTIN PO SCH ×2 (09:15→21:04)
[2016-10-09] MEDS: SODIUM CHLORIDE 0.9% INJ PRN (10:52)
[2016-10-09] MEDS: PHENERGAN IV PRN (10:52)
[2016-10-09] MEDS: ZOFRAN IV PRN (19:06)
[2016-10-09] MEDS: AMBIEN PO SCH (21:05)
[2016-10-09] MEDS: ATIVAN PO SCH (21:05)
[2016-10-10] MEDS: CLINIMIX E 4.25%-5% SOLUTION 1,000 ML IV SCH ×4 (03:42→20:18)
[2016-10-10] MEDS: DUONEB (A & A) INH SCH ×6 (04:51→23:08)
[2016-10-10] MEDS ORDERED: KEFZOL 1 GM/D5W 1 GM/50 ML IVPB IV ONE (05:46)
[2016-10-10] MEDS: PRILOSEC PO SCH (06:05)
[2016-10-10 07:58] LABS: MANUAL DIFF NEEDED? NO
[2016-10-10 08:23] LABS: BASO% 0.3 % (0.0-0.8); EOS# 0.26 X1000 (0.0-0.7); EOS% 4.2 % (0.0-10.0); HEMATOCRIT 25.6 % (42.0-52.0); HEMOGLOBIN 7.6 g/dL (14.0-18.0); IMM GRAN# 0.04 X1000 (0.0-0.04); IMM GRAN% 0.7 % (0.0-0.5); LYMPH% 14.6 % (20.5-51.1); MCH 26.5 PG (27-31); MCHC 29.7 g/dL (33-37); MCV 89.2 FL (81-99); MONO# 0.67 X1000 (0.11-0.59); MONO% 10.9 % (1.7-9.3); MPV 11.1 FL (7.4-10.4); NEUT% 69.3 % (42.2-75.2); PLT 281 X1000 (130-400); RBC 2.87 XMIL (4.7-6.1)
[2016-10-10 08:26] LABS: AGAP 14; BUN 15 mg/dL (8-22); CALCIUM 8.3 mg/dL (8.8-10.2); CHLORIDE 97 mmol/L (98-107); COSMO 275; POTASSIUM 4.8 mmol/L (3.5-5.1); SODIUM 137 mmol/L (136-145); TCO2 26 mmol/L (25-35)
[2016-10-10] MEDS: CORTEF PO SCH ×2 (09:49→22:51)
[2016-10-10] MEDS: TAMBOCOR PO SCH (09:50)
[2016-10-10] MEDS: LOPRESSOR PO SCH (09:51)
[2016-10-10] MEDS: PAXIL PO SCH (09:53)
[2016-10-10] MEDS: OXYCONTIN PO SCH ×2 (09:54→20:45)
[2016-10-10] MEDS ORDERED: DIPRIVAN 1% ONE (11:51)
[2016-10-10] MEDS ORDERED: LR 1,000 ML ONE (12:39)
[2016-10-10] MEDS ORDERED: XYLOCAINE 1% ONE (12:54)
[2016-10-10] MEDS ORDERED: SENSORCAINE 0.5%-EPI 1:200,000 ONE (12:54)
[2016-10-10] MEDS ORDERED: HURRICAINE SPRAY (DOSE) ONE (13:06)
[2016-10-10] MEDS ORDERED: NEO-SYNEPHRINE ONE (13:26)
[2016-10-10] MEDS ORDERED: SODIUM CHLORIDE 0.9% 10 ML ONE (13:26)
[2016-10-10] MEDS ORDERED: QUELICIN (DOSE) ONE (13:28)
[2016-10-10] MEDS ORDERED: FENTANYL ONE (13:54)
[2016-10-10] MEDS ORDERED: ZOFRAN ONE (14:51)
[2016-10-10] MEDS: DILAUDID ONE ×4 (15:01→15:26)
[2016-10-10] MEDS: HEPARIN 25,000 UNITS/D5W 25,000 UNIT/250 ML IV.SOLN IV SCH (18:17)
[2016-10-10] MEDS: DILAUDID IV PRN ×2 (18:29→22:50)
[2016-10-10] MEDS ORDERED: LASIX PO PRN (19:42)
[2016-10-10] MEDS: ELIQUIS PO SCH ×2 (20:45→22:51)
[2016-10-10] MEDS: ATIVAN PO SCH (20:45)
[2016-10-10] MEDS: AMBIEN PO SCH (20:46)
[2016-10-10] MEDS: ZOFRAN IV PRN (23:16)
[2016-10-11] MEDS ORDERED: HEPARIN IV ONE (01:28)
[2016-10-11] MEDS: HEPARIN 25,000 UNITS/D5W 25,000 UNIT/250 ML IV.SOLN IV SCH ×2 (01:46→08:41)
[2016-10-11] MEDS: CLINIMIX E 4.25%-5% SOLUTION 1,000 ML IV SCH ×3 (01:55→20:14)
[2016-10-11] MEDS: HYDROCODONE/APAP 7.5-325/15 ML PO PRN ×2 (01:56→15:42)
[2016-10-11] MEDS: DILAUDID IV PRN ×6 (02:55→20:57)
[2016-10-11] MEDS: DUONEB (A & A) INH SCH ×6 (03:19→22:55)
[2016-10-11 06:34] LABS: MANUAL DIFF NEEDED? NO
[2016-10-11] MEDS: PRILOSEC PO SCH (06:34)
[2016-10-11 07:00] LABS: BASO% 0.3 % (0.0-0.8); EOS# 0.16 X1000 (0.0-0.7); EOS% 2.5 % (0.0-10.0); HEMATOCRIT 25.6 % (42.0-52.0); HEMOGLOBIN 7.7 g/dL (14.0-18.0); IMM GRAN# 0.03 X1000 (0.0-0.04); IMM GRAN% 0.5 % (0.0-0.5); LYMPH# 0.85 X1000 (1.2-3.4); LYMPH% 13.3 % (20.5-51.1); MCH 26.4 PG (27-31); MCHC 30.1 g/dL (33-37); MCV 87.7 FL (81-99); MONO% 12.5 % (1.7-9.3); MPV 10.5 FL (7.4-10.4); NEUT% 70.9 % (42.2-75.2); PLT 298 X1000 (130-400); RBC 2.92 XMIL (4.7-6.1)
[2016-10-11 07:05] LABS: AGAP 14; BUN 14 mg/dL (8-22); CALCIUM 8.5 mg/dL (8.8-10.2); CHLORIDE 97 mmol/L (98-107); COSMO 274; POTASSIUM 4.6 mmol/L (3.5-5.1); SODIUM 136 mmol/L (136-145); TCO2 25 mmol/L (25-35)
[2016-10-11] MEDS: OXYCONTIN PO SCH ×2 (09:20→20:42)
[2016-10-11] MEDS: LOPRESSOR PO SCH (11:05)
[2016-10-11] MEDS: CORTEF PO SCH ×2 (11:10→20:43)
[2016-10-11] MEDS: PAXIL PO SCH (11:10)
[2016-10-11] MEDS: ELIQUIS PO SCH ×2 (11:15→20:42)
[2016-10-11] MEDS: TAMBOCOR PO SCH (11:21)
[2016-10-11 16:52] LABS: URINE CULTURE NEEDED? NO; URINE MICRO REVIEW NEEDED? NO; URINE SOURCE CATH
[2016-10-11 16:54] LABS: BILIRUBIN URINE NEGATIVE (NEGATIVE); BLOOD URINE NEGATIVE (NEGATIVE); COLOR YELLOW; GLUCOSE URINE NEGATIVE (NEGATIVE); LEUKOCYTES URINE NEGATIVE (NEGATIVE); NITRITE URINE NEGATIVE (NEGATIVE); PH URINE 7.5; PROTEIN URINE NEGATIVE (NEGATIVE); SP GRAVITY URINE 1.011; TURBIDITY URINE CLEAR (CLEAR); UROBILINOGEN URINE NORMAL (NORMAL)
[2016-10-11 16:55] LABS: UR EPITHELIAL CELLS <10 /HPF (<10); URINE BACTERIA NEGATIVE /HPF; URINE RBC <10 /HPF (<10); URINE WBC <10 /HPF (<10)
[2016-10-11] MEDS: AMBIEN PO SCH (20:43)
[2016-10-11] MEDS: ATIVAN PO SCH (20:43)
[2016-10-12] MEDS: CLINIMIX E 4.25%-5% SOLUTION 1,000 ML IV SCH ×2 (02:46→11:15)
[2016-10-12] MEDS: DILAUDID IV PRN ×7 (02:47→22:22)
[2016-10-12] MEDS: DUONEB (A & A) INH SCH ×6 (03:05→23:10)
[2016-10-12] MEDS: NORCO-10 PO PRN ×2 (03:13→20:35)
[2016-10-12] MEDS: HYDROCODONE/APAP 7.5-325/15 ML PO PRN (04:51)
[2016-10-12 06:30] LABS: MANUAL DIFF NEEDED? NO
[2016-10-12 06:32] LABS: BASO% 0.3 % (0.0-0.8); EOS# 0.26 X1000 (0.0-0.7); EOS% 3.7 % (0.0-10.0); HEMOGLOBIN 7.7 g/dL (14.0-18.0); IMM GRAN# 0.03 X1000 (0.0-0.04); IMM GRAN% 0.4 % (0.0-0.5); LYMPH# 0.64 X1000 (1.2-3.4); LYMPH% 9.2 % (20.5-51.1); MCH 26.3 PG (27-31); MCHC 29.6 g/dL (33-37); MCV 88.7 FL (81-99); MONO# 0.72 X1000 (0.11-0.59); MONO% 10.3 % (1.7-9.3); MPV 10.8 FL (7.4-10.4); NEUT% 76.1 % (42.2-75.2); PLT 318 X1000 (130-400); RBC 2.93 XMIL (4.7-6.1)
[2016-10-12] MEDS: PRILOSEC PO SCH ×2 (06:43→06:44)
[2016-10-12 06:53] LABS: AGAP 11; ALBUMIN 2.9 g/dL (3.5-5.0); ALKALINE PHOSPHATASE 98 U/L (32-122); BUN 14 mg/dL (8-22); CALCIUM 8.6 mg/dL (8.8-10.2); CHLORIDE 96 mmol/L (98-107); COSMO 270; GOT 7 U/L (10-34); GPT 5 U/L (10-44); POTASSIUM 4.9 mmol/L (3.5-5.1); SODIUM 134 mmol/L (136-145); TCO2 27 mmol/L (25-35); TOTAL BILIRUBIN 0.31 mg/dL (0.20-1.00); TOTAL PROTEIN 6.2 g/dL (6.3-8.3)
[2016-10-12] MEDS: CORTEF PO SCH ×2 (09:18→20:36)
[2016-10-12] MEDS: PAXIL PO SCH (09:18)
[2016-10-12] MEDS: OXY IR PO SCH ×3 (09:19→20:34)
[2016-10-12] MEDS: ELIQUIS PO SCH ×2 (09:19→20:34)
[2016-10-12] MEDS: LOPRESSOR PO SCH (09:19)
[2016-10-12] MEDS: TAMBOCOR PO SCH (09:19)
[2016-10-12] MEDS: ZOFRAN IV PRN ×3 (10:41→19:33)
[2016-10-12] MEDS: PROTONIX IV SCH (17:11)
[2016-10-12] MEDS: ATIVAN PO SCH (20:35)
[2016-10-12] MEDS: AMBIEN PO SCH (20:35)
[2016-10-13] MEDS: ZOFRAN IV PRN ×3 (02:14→12:31)
[2016-10-13] MEDS: DILAUDID IV PRN ×8 (02:14→23:49)
[2016-10-13] MEDS: OXY IR PO SCH ×4 (02:14→20:54)
[2016-10-13] MEDS: DUONEB (A & A) INH SCH ×6 (02:45→23:00)
[2016-10-13] MEDS: PHENERGAN IV PRN ×2 (03:29→21:21)
[2016-10-13] MEDS: SODIUM CHLORIDE 0.9% INJ SCH ×3 (05:46→16:22)
[2016-10-13] MEDS: PROTONIX IV SCH ×2 (05:46→16:21)
[2016-10-13] MEDS: NORCO-10 PO PRN (07:40)
[2016-10-13 07:41] LABS: BASO% 0.3 % (0.0-0.8); EOS# 0.51 X1000 (0.0-0.7); EOS% 5.2 % (0.0-10.0); HEMATOCRIT 29.3 % (42.0-52.0); HEMOGLOBIN 8.6 g/dL (14.0-18.0); IMM GRAN# 0.03 X1000 (0.0-0.04); IMM GRAN% 0.3 % (0.0-0.5); LYMPH# 1.01 X1000 (1.2-3.4); LYMPH% 10.3 % (20.5-51.1); MANUAL DIFF NEEDED? YES; MCH 26.1 PG (27-31); MCHC 29.4 g/dL (33-37); MCV 88.8 FL (81-99); MONO# 1.21 X1000 (0.11-0.59); MONO% 12.4 % (1.7-9.3); MPV 10.4 FL (7.4-10.4); NEUT% 71.5 % (42.2-75.2); PLT 374 X1000 (130-400)
[2016-10-13 07:58] LABS: AGAP 15; BUN 16 mg/dL (8-22); CALCIUM 8.8 mg/dL (8.8-10.2); CHLORIDE 92 mmol/L (98-107); COSMO 270; POTASSIUM 4.8 mmol/L (3.5-5.1); SODIUM 134 mmol/L (136-145); TCO2 27 mmol/L (25-35)
[2016-10-13 08:09] LABS: EOS 8 % (1-10); HYPOCHROM 1+; LYMPHS 16 % (21-51); MONO 12 % (1-9)
[2016-10-13] MEDS: CORTEF PO SCH ×2 (08:09→20:55)
[2016-10-13] MEDS: PAXIL PO SCH (08:09)
[2016-10-13] MEDS: ELIQUIS PO SCH ×2 (08:09→20:56)
[2016-10-13] MEDS: TAMBOCOR PO SCH (08:09)
[2016-10-13] MEDS: LOPRESSOR PO SCH (08:13)
[2016-10-13] MEDS: HYDROCODONE/APAP 7.5-325/15 ML PO PRN ×2 (18:36→23:43)
[2016-10-13] MEDS: AMBIEN PO SCH (20:55)
[2016-10-13] MEDS: ATIVAN PO SCH (20:55)
[2016-10-14] MEDS: DUONEB (A & A) INH SCH ×6 (02:35→23:19)
[2016-10-14] MEDS: ZOFRAN IV PRN (04:28)
[2016-10-14] MEDS: DILAUDID IV PRN ×6 (04:28→23:48)
[2016-10-14] MEDS: SODIUM CHLORIDE 0.9% INJ SCH ×2 (04:29→16:56)
[2016-10-14] MEDS: OXY IR PO SCH ×4 (04:29→20:24)
[2016-10-14] MEDS: PROTONIX IV SCH ×2 (04:29→16:56)
[2016-10-14] MEDS: HYDROXYZINE PO PRN (04:44)
[2016-10-14] MEDS: HYDROCODONE/APAP 7.5-325/15 ML PO PRN ×3 (06:50→22:41)
[2016-10-14 07:34] LABS: AGAP 11; BUN 12 mg/dL (8-22); CHLORIDE 93 mmol/L (98-107); COSMO 273; MAGNESIUM 1.9 mg/dL (1.5-2.7); POTASSIUM 4.7 mmol/L (3.5-5.1); SODIUM 136 mmol/L (136-145); TCO2 32 mmol/L (25-35)
[2016-10-14] MEDS: LOPRESSOR PO SCH (08:32)
[2016-10-14] MEDS: ELIQUIS PO SCH ×2 (08:32→20:24)
[2016-10-14] MEDS: PAXIL PO SCH (08:33)
[2016-10-14] MEDS: TAMBOCOR PO SCH (08:33)
[2016-10-14] MEDS: CORTEF PO SCH ×2 (08:33→20:24)
[2016-10-14] MEDS: PHENERGAN IV PRN (12:48)
[2016-10-14] MEDS: ATIVAN PO SCH (20:24)
[2016-10-14] MEDS: AMBIEN PO SCH (20:24)
[2016-10-15] MEDS: NORCO-10 PO PRN (01:14)
[2016-10-15] MEDS: OXY IR PO SCH ×4 (02:23→20:49)
[2016-10-15] MEDS: DUONEB (A & A) INH SCH ×6 (02:55→23:30)
[2016-10-15] MEDS: DILAUDID IV PRN ×5 (03:06→20:49)
[2016-10-15] MEDS: PROTONIX IV SCH ×2 (05:07→16:08)
[2016-10-15] MEDS: SODIUM CHLORIDE 0.9% INJ SCH ×2 (05:07→16:06)
[2016-10-15] MEDS: HYDROCODONE/APAP 7.5-325/15 ML PO PRN ×2 (05:07→14:06)
[2016-10-15 06:49] LABS: MANUAL DIFF NEEDED? NO
[2016-10-15 06:59] LABS: BASO% 0.2 % (0.0-0.8); EOS# 0.38 X1000 (0.0-0.7); HEMATOCRIT 26.6 % (42.0-52.0); HEMOGLOBIN 7.8 g/dL (14.0-18.0); IMM GRAN# 0.05 X1000 (0.0-0.04); IMM GRAN% 0.5 % (0.0-0.5); LYMPH# 0.64 X1000 (1.2-3.4); LYMPH% 6.7 % (20.5-51.1); MCH 26.2 PG (27-31); MCHC 29.3 g/dL (33-37); MCV 89.3 FL (81-99); MONO% 11.6 % (1.7-9.3); PLT 387 X1000 (130-400); RBC 2.98 XMIL (4.7-6.1)
[2016-10-15 07:30] LABS: AGAP 13; BUN 15 mg/dL (8-22); CALCIUM 8.3 mg/dL (8.8-10.2); CHLORIDE 91 mmol/L (98-107); COSMO 270; POTASSIUM 4.5 mmol/L (3.5-5.1); SODIUM 134 mmol/L (136-145); TCO2 30 mmol/L (25-35)
[2016-10-15] MEDS: PHENERGAN IV PRN ×3 (09:19→20:48)
[2016-10-15] MEDS: CORTEF PO SCH ×2 (10:17→20:49)
[2016-10-15] MEDS: LOPRESSOR PO SCH (10:17)
[2016-10-15] MEDS: TAMBOCOR PO SCH (10:17)
[2016-10-15] MEDS: ELIQUIS PO SCH ×2 (10:17→20:49)
[2016-10-15] MEDS: PAXIL PO SCH (10:17)
[2016-10-15] MEDS: SODIUM CHLORIDE 0.9% INJ PRN (15:59)
[2016-10-15] MEDS: AMBIEN PO SCH (20:49)
[2016-10-15] MEDS: ATIVAN PO SCH (20:49)
[2016-10-16] MEDS: DILAUDID IV PRN ×5 (01:45→22:19)
[2016-10-16] MEDS: PHENERGAN IV PRN ×3 (01:46→10:11)
[2016-10-16] MEDS: DUONEB (A & A) INH SCH ×6 (03:19→22:43)
[2016-10-16] MEDS: OXY IR PO SCH ×4 (03:40→21:57)
[2016-10-16] MEDS: SODIUM CHLORIDE 0.9% INJ PRN (05:18)
[2016-10-16] MEDS: SODIUM CHLORIDE 0.9% INJ SCH ×2 (05:30→16:01)
[2016-10-16] MEDS: PROTONIX IV SCH ×2 (05:30→16:00)
[2016-10-16 06:59] LABS: MANUAL DIFF NEEDED? NO
[2016-10-16 07:09] LABS: BASO% 0.4 % (0.0-0.8); EOS% 3.3 % (0.0-10.0); HEMATOCRIT 29.3 % (42.0-52.0); HEMOGLOBIN 8.6 g/dL (14.0-18.0); IMM GRAN# 0.03 X1000 (0.0-0.04); IMM GRAN% 0.3 % (0.0-0.5); LYMPH# 0.79 X1000 (1.2-3.4); LYMPH% 8.6 % (20.5-51.1); MCH 26.2 PG (27-31); MCHC 29.4 g/dL (33-37); MCV 89.3 FL (81-99); MONO# 1.19 X1000 (0.11-0.59); MONO% 12.9 % (1.7-9.3); MPV 11.1 FL (7.4-10.4); NEUT% 74.5 % (42.2-75.2); PLT 397 X1000 (130-400); RBC 3.28 XMIL (4.7-6.1)
[2016-10-16] MEDS: REGLAN IV SCH ×3 (07:09→18:56)
[2016-10-16 07:34] LABS: AGAP 15; ALBUMIN 2.8 g/dL (3.5-5.0); ALKALINE PHOSPHATASE 195 U/L (32-122); BUN 16 mg/dL (8-22); CALCIUM 9.4 mg/dL (8.8-10.2); CHLORIDE 91 mmol/L (98-107); COSMO 261; GOT 16 U/L (10-34); GPT 20 U/L (10-44); POTASSIUM 5.4 mmol/L (3.5-5.1); SODIUM 130 mmol/L (136-145); TCO2 24 mmol/L (25-35); TOTAL BILIRUBIN 0.46 mg/dL (0.20-1.00); TOTAL PROTEIN 7.3 g/dL (6.3-8.3)
[2016-10-16] MEDS: ZOFRAN IV PRN ×3 (08:04→22:19)
[2016-10-16] MEDS: CORTEF PO SCH ×2 (08:06→21:58)
[2016-10-16] MEDS: LOPRESSOR PO SCH (08:06)
[2016-10-16] MEDS: TAMBOCOR PO SCH (08:07)
[2016-10-16] MEDS: PAXIL PO SCH (08:07)
[2016-10-16] MEDS: ELIQUIS PO SCH ×2 (08:07→21:58)
[2016-10-16] MEDS: HYDROCODONE/APAP 7.5-325/15 ML PO PRN (10:06)
[2016-10-16] MEDS: AMBIEN PO SCH (21:57)
[2016-10-16] MEDS: ATIVAN PO SCH (21:58)
[2016-10-17] MEDS: REGLAN IV SCH ×4 (02:42→21:06)
[2016-10-17] MEDS: DUONEB (A & A) INH SCH ×6 (03:11→23:00)
[2016-10-17] MEDS: PHENERGAN IV PRN ×3 (03:13→13:38)
[2016-10-17] MEDS: DILAUDID IV PRN ×5 (03:13→22:17)
[2016-10-17] MEDS: OXY IR PO SCH ×4 (04:21→21:06)
[2016-10-17] MEDS: SODIUM CHLORIDE 0.9% INJ SCH ×2 (04:22→17:34)
[2016-10-17] MEDS: PROTONIX IV SCH ×2 (04:22→17:34)
[2016-10-17 07:28] LABS: AGAP 13; BUN 20 mg/dL (8-22); CALCIUM 8.6 mg/dL (8.8-10.2); CHLORIDE 91 mmol/L (98-107); COSMO 266; MAGNESIUM 2.1 mg/dL (1.5-2.7); POTASSIUM 4.9 mmol/L (3.5-5.1); SODIUM 131 mmol/L (136-145); TCO2 27 mmol/L (25-35)
[2016-10-17] MEDS: SODIUM CHLORIDE 0.9% INJ PRN (08:26)
[2016-10-17] MEDS: LOPRESSOR PO SCH ×2 (11:32→11:40)
[2016-10-17] MEDS: CORTEF PO SCH ×2 (11:33→21:06)
[2016-10-17] MEDS: TAMBOCOR PO SCH (11:33)
[2016-10-17] MEDS: ELIQUIS PO SCH ×2 (11:33→21:06)
[2016-10-17] MEDS: PAXIL PO SCH (11:33)
[2016-10-17] MEDS: ATIVAN PO SCH (21:07)
[2016-10-17] MEDS: AMBIEN PO SCH (21:07)
[2016-10-18] MEDS: SODIUM CHLORIDE 0.9% INJ PRN ×3 (00:16→13:29)
[2016-10-18] MEDS: PHENERGAN IV PRN ×4 (00:16→13:29)
[2016-10-18] MEDS: DILAUDID IV PRN ×5 (02:27→19:20)
[2016-10-18] MEDS: REGLAN IV SCH ×4 (02:27→20:43)
[2016-10-18] MEDS: OXY IR PO SCH ×4 (02:28→20:42)
[2016-10-18] MEDS: DUONEB (A & A) INH SCH ×6 (03:40→23:00)
[2016-10-18] MEDS: PROTONIX IV SCH ×2 (05:30→18:13)
[2016-10-18] MEDS: SODIUM CHLORIDE 0.9% INJ SCH ×2 (05:30→18:13)
[2016-10-18] MEDS: PAXIL PO SCH (09:55)
[2016-10-18] MEDS: TAMBOCOR PO SCH (09:55)
[2016-10-18] MEDS: ELIQUIS PO SCH ×2 (09:56→20:42)
[2016-10-18] MEDS: CORTEF PO SCH ×2 (09:56→20:43)
[2016-10-18] MEDS: LOPRESSOR PO SCH (09:57)
[2016-10-18] MEDS ORDERED: DILAUDID IM ONE (10:19)
[2016-10-18] MEDS ORDERED: DILAUDID IV ONE (10:20)
[2016-10-18] MEDS: AMBIEN PO SCH (20:42)
[2016-10-18] MEDS: ATIVAN PO SCH (20:43)
[2016-10-19] MEDS: DILAUDID IV PRN ×7 (01:27→21:06)
[2016-10-19] MEDS: REGLAN IV SCH ×5 (01:28→20:48)
[2016-10-19] MEDS: DUONEB (A & A) INH SCH ×6 (03:00→23:00)
[2016-10-19] MEDS: OXY IR PO SCH ×4 (04:00→20:48)
[2016-10-19] MEDS: PROTONIX IV SCH ×2 (04:46→17:39)
[2016-10-19] MEDS: SODIUM CHLORIDE 0.9% INJ SCH ×2 (04:46→17:39)
[2016-10-19] MEDS: PHENERGAN IV PRN ×3 (08:10→17:40)
[2016-10-19] MEDS: PAXIL PO SCH (09:03)
[2016-10-19] MEDS: TAMBOCOR PO SCH (09:03)
[2016-10-19] MEDS: CORTEF PO SCH ×2 (09:03→20:48)
[2016-10-19] MEDS: ELIQUIS PO SCH ×2 (09:03→20:48)
[2016-10-19] MEDS: LOPRESSOR PO SCH (09:03)
[2016-10-19] MEDS: ATIVAN PO SCH (20:48)
[2016-10-19] MEDS: AMBIEN PO SCH (20:48)
[2016-10-20] MEDS: DILAUDID IV PRN ×7 (00:06→23:59)
[2016-10-20] MEDS: PHENERGAN IV PRN ×5 (00:06→18:46)
[2016-10-20] MEDS: SODIUM CHLORIDE 0.9% INJ PRN ×3 (00:06→23:59)
[2016-10-20] MEDS: REGLAN IV SCH ×4 (02:55→22:38)
[2016-10-20] MEDS: OXY IR PO SCH ×4 (02:56→22:38)
[2016-10-20] MEDS: DUONEB (A & A) INH SCH ×5 (03:48→19:38)
[2016-10-20] MEDS: PROTONIX IV SCH ×2 (04:17→16:30)
[2016-10-20] MEDS: SODIUM CHLORIDE 0.9% INJ SCH ×2 (04:17→16:30)
[2016-10-20 06:49] LABS: AGAP 14; BUN 21 mg/dL (8-22); CALCIUM 8.7 mg/dL (8.8-10.2); CHLORIDE 92 mmol/L (98-107); COSMO 270; POTASSIUM 4.9 mmol/L (3.5-5.1); SODIUM 133 mmol/L (136-145); TCO2 27 mmol/L (25-35)
[2016-10-20] MEDS: ELIQUIS PO SCH ×2 (09:27→22:38)
[2016-10-20] MEDS: LOPRESSOR PO SCH (09:27)
[2016-10-20] MEDS: PAXIL PO SCH (09:27)
[2016-10-20] MEDS: CORTEF PO SCH ×2 (09:27→22:38)
[2016-10-20] MEDS: TAMBOCOR PO SCH (09:27)
[2016-10-20] MEDS: ATIVAN IV PRN (18:46)
[2016-10-20] MEDS: ATIVAN PO SCH (22:38)
[2016-10-20] MEDS: AMBIEN PO SCH (22:38)
[2016-10-21] MEDS: DUONEB (A & A) INH SCH ×6 (00:16→23:27)
[2016-10-21] MEDS: DILAUDID IV PRN ×6 (02:51→20:30)
[2016-10-21] MEDS: SODIUM CHLORIDE 0.9% INJ PRN ×4 (02:51→20:30)
[2016-10-21] MEDS: PHENERGAN IV PRN ×6 (02:52→20:29)
[2016-10-21] MEDS: REGLAN IV SCH ×4 (04:11→22:11)
[2016-10-21] MEDS: OXY IR PO SCH ×4 (04:11→22:10)
[2016-10-21] MEDS: ATIVAN IV PRN (05:29)
[2016-10-21] MEDS: SODIUM CHLORIDE 0.9% INJ SCH ×2 (05:30→16:26)
[2016-10-21] MEDS: PROTONIX IV SCH ×2 (05:30→16:26)
[2016-10-21] MEDS: LOPRESSOR PO SCH (09:32)
[2016-10-21] MEDS: CORTEF PO SCH ×2 (10:44→22:11)
[2016-10-21] MEDS: PAXIL PO SCH (10:44)
[2016-10-21] MEDS: ELIQUIS PO SCH ×2 (10:45→22:11)
[2016-10-21] MEDS: TAMBOCOR PO SCH (10:45)
[2016-10-21] MEDS: AMBIEN PO SCH (22:10)
[2016-10-22] MEDS: SODIUM CHLORIDE 0.9% INJ PRN ×4 (00:30→21:02)
[2016-10-22] MEDS: DILAUDID IV PRN ×7 (00:30→21:02)
[2016-10-22] MEDS: PHENERGAN IV PRN ×7 (00:31→21:02)
[2016-10-22] MEDS: REGLAN IV SCH ×4 (02:13→21:03)
[2016-10-22] MEDS: OXY IR PO SCH ×4 (02:14→21:03)
[2016-10-22] MEDS: PROTONIX IV SCH ×3 (02:14→16:39)
[2016-10-22] MEDS: SODIUM CHLORIDE 0.9% INJ SCH ×3 (02:14→16:39)
[2016-10-22] MEDS: DUONEB (A & A) INH SCH ×8 (03:28→23:12)
[2016-10-22] MEDS: ELIQUIS PO SCH ×2 (10:05→21:03)
[2016-10-22] MEDS: TAMBOCOR PO SCH (10:05)
[2016-10-22] MEDS: PAXIL PO SCH (10:06)
[2016-10-22] MEDS: CORTEF PO SCH ×2 (10:06→21:04)
[2016-10-22] MEDS: AMBIEN PO SCH (21:03)
[2016-10-23] MEDS: DILAUDID IV PRN ×7 (00:31→21:25)
[2016-10-23] MEDS: SODIUM CHLORIDE 0.9% INJ PRN ×4 (00:31→18:45)
[2016-10-23] MEDS: PHENERGAN IV PRN ×7 (00:31→21:27)
[2016-10-23] MEDS: DUONEB (A & A) INH SCH ×5 (02:35→19:32)
[2016-10-23] MEDS: OXY IR PO SCH ×4 (03:46→21:23)
[2016-10-23] MEDS: REGLAN IV SCH ×4 (03:47→21:23)
[2016-10-23] MEDS: SODIUM CHLORIDE 0.9% INJ SCH ×2 (05:51→17:02)
[2016-10-23] MEDS: PROTONIX IV SCH ×2 (05:51→17:02)
[2016-10-23] MEDS: CORTEF PO SCH ×2 (08:14→21:23)
[2016-10-23] MEDS: TAMBOCOR PO SCH (08:14)
[2016-10-23] MEDS: ELIQUIS PO SCH ×2 (08:15→21:23)
[2016-10-23] MEDS: PAXIL PO SCH (08:15)
[2016-10-23] MEDS ORDERED: BLISTEX MEDICATED BERRY LIP BALM TOP PRN (09:40)
[2016-10-23 12:58] LABS: AGAP 13; ALBUMIN 3.2 g/dL (3.5-5.0); BUN 26 mg/dL (8-22); CALCIUM 9.1 mg/dL (8.8-10.2); CHLORIDE 90 mmol/L (98-107); COSMO 270; MAGNESIUM 2.1 mg/dL (1.5-2.7); POTASSIUM 5.1 mmol/L (3.5-5.1); SODIUM 132 mmol/L (136-145); TCO2 29 mmol/L (25-35)
[2016-10-23] MEDS: AMBIEN PO SCH (21:23)
[2016-10-24] MEDS: DUONEB (A & A) INH SCH ×4 (01:33→07:43)
[2016-10-24] MEDS: DILAUDID IV PRN ×4 (02:22→13:02)
[2016-10-24] MEDS: PHENERGAN IV PRN ×4 (02:24→13:02)
[2016-10-24] MEDS: OXY IR PO SCH ×2 (02:49→10:08)
[2016-10-24] MEDS: REGLAN IV SCH ×2 (02:49→10:08)
[2016-10-24] MEDS: SODIUM CHLORIDE 0.9% INJ SCH (05:46)
[2016-10-24] MEDS: PROTONIX IV SCH (05:46)
[2016-10-24] MEDS: CORTEF PO SCH (10:08)
[2016-10-24] MEDS: ELIQUIS PO SCH (10:09)
[2016-10-24] MEDS: TAMBOCOR PO SCH (10:09)
[2016-10-24] MEDS: PAXIL PO SCH (10:09)
[2016-10-24 14:16] VITALS: BP 110/63
== END 2016-10-24 15:16 | disposition hospice, home (50) ==
LOC: SUATTDRO 11:29 → DIRADM 11:29 → 3N 12:56
PROVIDERS: ADMIT Internal Medicine; ATTEND Surgery